=== PATIENT | male | born 1950 | race Caucasian/White ===

== ENCOUNTER → 2016-10-09 | Outpatient (CLI) | payer MEDICARE, OTHER ==
--- NOTE | 2016-10-10 12:19 | CONS ---
CONSULTATION Date of Consultation: DATE OF SERVICE: 10/09/2016 66-year-old gentleman who has [facility] for obstructive sleep apnea-hypopnea syndrome. HISTORY OF PRESENT ILLNESS/SLEEP WAKE EVALUATION: Patient had been diagnosed with obstructive sleep apnea about 10 years ago in [place]. He was recommended treatment with CPAP, but he was not able to use the treatment. At the present time his sleep schedule significantly varies from 8:00 p.m. to 2:00 a.m. falling asleep until 7:00 a.m. to 10:00 a.m. on getting up. He does have problem with falling asleep. Has TV set in bedroom. He snores, has episodes of stopped breathing during the sleep. Restless leg symptoms. Nocturia. He wakes up from sleep three times with nocturia. No history of hypnagogic hallucinations, sleep paralysis or cataplexy. He feels significant sleepiness during the day. He takes naps. [place] sleepiness scale is extremely high range at 23. PAST MEDICAL HISTORY: Positive for hypertension, diabetes mellitus, back problem, peripheral neuropathy, some blindness of left eye, COPD. PAST SURGICAL HISTORY: Status post cataract surgery of the left eye. MEDICATIONS: 1. Metformin. 2. Atorvastatin. 3. Losartan. 4. Montelukast. 5. Aspirin. 6. Januvia. 7. Tramadol. 8. Lyrica. 9. Albuterol. 10.Hydrocodone. 11.budesonide. SOCIAL HISTORY: Positive for smoking for about one and a half packs per day for more than 40 years. Alcohol consumption very seldom. REVIEW OF SYSTEMS: Multiple awakenings from sleep. Sleepiness during the day. No fevers No double vision. No recent chest pain. No shortness of breath. No abdominal pain. No bleeding episodes. No blood in urine. No seizure episodes. FAMILY HISTORY: Hypertension, angina, heart problems, hyperlipidemia, stroke, arthritis, asthma, bronchitis, lung problems, sleep apnea, snoring, headaches, cancer, diabetes. PHYSICAL EXAM: GENERAL: During physical exam, a 66-year-old gentleman without distress. VITAL SIGNS: BP 120/70, HR 72, RR 16, height 5 feet 11 inches, weight 259, BMI 36.1. Neck 16-3/4 inches in circumference. Temperature 98.2, O2 saturation in room air 96%. HEENT: Evaluation of oropharynx showed extremely low position. Nasal symptoms deviation. Blindness of the left eye. Right eye reactive to light and accommodation. NECK: Supple. No JVD. Thyroid is not palpable. LUNGS: clear to percussion and to auscultation. Good air exchange. No wheezing or rhonchi. HEART: S1, S2 regular. No murmurs, gallops or rubs. ABDOMEN: Soft and nontender. Bowel sounds are present. No organomegaly appreciated. EXTREMITIES: Tendency for swelling of the ankles. MAIL TRUCK DRIVER: Awake, alert and oriented x3. Cranial nerves II through VII intact. There is no fasciculation or atrophy noted. No focal deficits observed. IMPRESSION: 1. Snoring and multiple awakenings from sleep, extreme sleepiness during the day, [place] sleepiness scale increased to 23, witnessed episodes of stopped breathing during the sleep, history of obstructive sleep apnea in the past. Obstructive sleep apnea-hypopnea syndrome. 2. Obesity, BMI 36.1. 3. Hypertension. 4. Diabetes mellitus. 5. Nasal septal deviation. 6. Back problems. 7. Peripheral neuropathy. 8. Status post appendectomy. 9. Status post cataract surgery on the left side. 10.Blindness on the left eye. 11.Chronic obstructive pulmonary disease. 12.Smoker for more than 60 pack years. PLAN: 1. Polysomnography for evaluation of patient's breathing during sleep. 2. CPAP/BiPAP titration if sleep study confirms obstructive sleep apnea-hypopnea syndrome. 3. Preferable position during sleep on the side. 4. No driving if patient feels any sleepiness. Patient is aware of civil and criminal liability for unsafe driving. 5. I will see the patient for follow-up visit to explain results of the testing and following plan. 6. Smoking cessation program. Thank you very much for referring this patient for consultation. Sincerely, Ashish Aguilera MD, PhD, FAASM Diplomat of [place] [employer], Sleep Medicine Board by [place] [employer] [place] [employer] MMODL / IJN: [id number] /
== END | disposition home or self-care (01) ==
LOC: SLEEP 15:38
PROVIDERS: ATTEND Internal Medicine
DX: G47.33 Obstructive sleep apnea (adult) (pediatric) (principal); E66.9 Obesity, unspecified; I10 Essential (primary) hypertension; E11.9 Type 2 diabetes mellitus without complications; J34.2 Deviated nasal septum; G62.9 Polyneuropathy, unspecified; J44.9 Chronic obstructive pulmonary disease, unspecified; Z68.36 Body mass index [BMI] 36.0-36.9, adult; Z98.890 Other specified postprocedural states; Z79.4 Long term (current) use of insulin; Z79.899 Other long term (current) drug therapy; Z79.82 Long term (current) use of aspirin
CPT/HCPCS: 99211

== ENCOUNTER → 2017-02-12 | Outpatient (CLI) | payer MEDICARE, OTHER ==
--- NOTE | 2017-02-12 23:11 | MR ---
EXAMINATION TYPE: MR lumbar spine wo con DATE OF EXAM: 02/12/2017 COMPARISON: Primary MRI lumbar spine November 07, 2015. HISTORY: LBP, BLE radic x several years TECHNIQUE: Multiplanar, multisequence imaging of the lumbar spine is performed without IV contrast. FINDINGS: Sagittal images of the lumbar spine show vertebral body heights to remain satisfactory. The re are multilevel persistent Schmorl nodes redemonstrated. There is persistent stable grade 1 retroli sthesis of L5 on S1. Multilevel disc desiccation is redemonstrated. There is vacuum disc phenomenon L 4-L5 and L5-S1 levels again seen. There is mild disc space narrowing L4-L5 level fell present on cur rent study. No new large posterior disc herniations are seen on sagittal images. The conus medullaris remains normal in position and signal ending at T12-L1 disc space. The bone marrow signal intensity is overall heterogeneous. Mild multilevel anterior spurring is redemonstrated. Axial images at T12-L1 level demonstrate mild facet degenerative changes bilaterally. There is new mi ld broad disc bulge mildly effacing anterior thecal sac on axial image 29, bilateral neural foramina remain patent. Axial images at L1-L2 level redemonstrate mild facet degenerative changes bilaterally but the spinal canal is preserved and bilateral neural foramina remain patent. Axial images at L2-L3 level are felt to remain within normal limits. Axial images at L3-L4 level demonstrates mild broad disc bulge and mild facet degenerative changes bi laterally with right foraminal disc protrusion component seen best axial image 13. There is minimal e ffacement of anterior thecal sac. Left-sided neural foramina is patent. Right side redemonstrates mil [id number] anterior inferior neural foraminal narrowing felt slightly more prominent versus prior on sagittal images. Axial images at L4-L5 level show moderate to advanced facet degenerative changes and ligamentum flavu m hypertrophy and spondylolisthesis causing pseudodisc herniation with broad disc bulge causing most prominent spinal canal stenosis on axial image 9 similar to prior study. There is persistent advanced left-sided neural foraminal narrowing and moderate to advanced right-sided neural foraminal narrowin g. There is encroachment on the left L4 nerve redemonstrated anterior inferior margin of right L4 ner ve on sagittal image 12 redemonstrated. Axial images at the L5-S1 level redemonstrated [id number] facet degenerative changes bilaterall y. There is mild broad disc bulge redemonstrated. Spinal canal is minimally effaced along anterior as pect. There is moderate right-sided neural foraminal narrowing redemonstrated. Left-sided neural fora men is patent. Encroachment on right L5 nerve is redemonstrated due to spur disc complex on sagittal image 11. There is persistent ectasia of the infrarenal abdominal aorta measuring up to 3.1 cm in diameter on c urrent study axial image 16. There appears to be more prominent moderate right-sided hydronephrosis o n current study. IMPRESSION: Multilevel degenerative changes in lumbar spine as detailed above, most prominent finding s are L4-L5 level where spondylolisthesis degenerative changes contribute to spinal canal stenosis an d bilateral neural foraminal narrowing with nerve encroachment. No significant change from prior stud y at this level. Attention to right kidney, moderate right-sided hydronephrosis is felt present on cu rrent study. Follow-up advised.
== END | disposition home or self-care (01) ==
LOC: RADMRIMAIN 16:49
PROVIDERS: ATTEND Psychiatry & Neurology Neurology
DX: M48.061 Spinal stenosis, lumbar region without neurogenic claudication (principal); M43.16 Spondylolisthesis, lumbar region; M47.816 Spondylosis without myelopathy or radiculopathy, lumbar region; M99.73 Connective tissue and disc stenosis of intervertebral foramina of lumbar region
CPT/HCPCS: 72148

== ENCOUNTER → 2017-06-17 | Outpatient (CLI) | payer MEDICARE, OTHER ==
[2017-06-16 14:57] VITALS: BMI 33.2
[2017-06-17 12:08] VITALS: BP 155/79; PULSE 60; RESP 18
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
== END | disposition home or self-care (01) ==
LOC: PNWHC3 11:43
PROVIDERS: ATTEND Specialist
DX: G89.29 Other chronic pain (principal); M54.5 Low back pain; M79.641 Pain in right hand; M51.36 Other intervertebral disc degeneration, lumbar region; M47.816 Spondylosis without myelopathy or radiculopathy, lumbar region; E11.9 Type 2 diabetes mellitus without complications; I10 Essential (primary) hypertension; M19.90 Unspecified osteoarthritis, unspecified site; G47.30 Sleep apnea, unspecified; M10.9 Gout, unspecified; Z86.59 Personal history of other mental and behavioral disorders; Z79.82 Long term (current) use of aspirin; Z79.891 Long term (current) use of opiate analgesic; Z79.1 Long term (current) use of non-steroidal anti-inflammatories (NSAID); Z79.84 Long term (current) use of oral hypoglycemic drugs; Z99.89 Dependence on other enabling machines and devices; Z87.828 Personal history of other (healed) physical injury and trauma; Z79.899 Other long term (current) drug therapy
CPT/HCPCS: 99211

== ENCOUNTER → 2017-06-19 | Outpatient (CLI) | payer MEDICARE, OTHER ==
--- NOTE | 2017-06-19 13:14 | XR ---
EXAMINATION TYPE: XR hand complete RT DATE OF EXAM: 06/19/2017 COMPARISON: NONE HISTORY: A TECHNIQUE: Three views are submitted. FINDINGS: The osseous structures are intact. Hypertrophic spur and narrowing of the third MCP joint. Narrowing the first MCP joint noted. IMPRESSION: 1. No definite acute fracture or dislocation if symptoms persist, follow-up study in 7 to 10 days wo uld be suggested. 2. Arthropathy and hypertrophic changes involving the third MCP joint.
== END | disposition home or self-care (01) ==
LOC: RADXRYALE 12:53
PROVIDERS: ATTEND Internal Medicine
DX: M19.041 Primary osteoarthritis, right hand (principal); M25.841 Other specified joint disorders, right hand

== ENCOUNTER 2017-06-22 06:48 | Day surgery (SDC) | payer MEDICARE, OTHER ==
[2017-06-19 11:38] VITALS: BMI 33.2
[~2017-06-22 06:48] MED LIST: LACTATED RINGERS 1,000 ML IV SCH
[2017-06-22 08:13] VITALS: TEMP 97.8
[2017-06-22 08:13] LABS: Glucose,Whole Blood 101 mg/dL (75-99)
[2017-06-22] MEDS ORDERED: LIDOCAINE 1% 20 ML VIAL (10MG/ML) FOR IV START INTRADERMA ONE (08:13)
--- NOTE | 2017-06-22 08:42 | P.PCN ---
Date of Procedure: 06/22/17 Anesthesia: MAC (Local with IV conscious sedation with 2 mg of Versed) Surgeon: Valeria Granados Description of Procedure: Procedure= diagnostic medial branch block bilateral at L3 4 , L4 5, and L5-S1 levels under fluoroscopy guidance Preop diagnosis= 1- lumbar facet arthropathy 2-lumbar degenerative disc disease , Postop diagnoses=1- lumbar facet arthropathy 2-lumbar degenerative disc disease , Anesthesia= IV sedation with Versed and fentanyl and local infiltration with lidocaine 1% 6 mL . Condition= stable Complication= none Fluoroscopy time= 12 seconds. Occasion for the procedure= chronic low back pain secondary to lumbar facet arthropathy. Description of the procedure= procedure risk and benefit including but not limited to infection, bleeding, ALLERGIC reaction to the medication, not complete pain relief, nerve damage, and patient agreed with proceeding, patient taken to the operating room, placed in prone position, or standard monitors applied to the patient, then after induction of anesthesia, lidocaine 1% used for skin and subcu l infiltration, Firsts I did the right side diagnostic medial branch block at L3- 4, L4- 5, L5- S1 using 322-gauge Quincke tab needles, each needle placed at the junction of the base of the transverse process and the superior articulating process of L3- 4, L4 5, and L5-S1 levels on the right side (which is correspondence to the eye of the Franko dog at each level ) , the needles placement confirmed under fluoroscopy by checking the AP, oblique, and lateral views, and after appropriate needle placement confirmed 0.5 Marcaine mixed with 40 mg of Kenalog , half cc of injected at each level after negative aspiration, Then the diagnostic medial branch block for the left side done after the injected the lidocaine 1% for skin and subcu infiltration then a 22-gauge Quincke Needle was 3 needle was used each one of them placed at the junction of the base of the transverse process and the superior articulating process of L3 4, L4 5, L5-S1 levels (which is correspondence to the eye of the Franko dog at each level), then needle placement confirmed with AP, oblique, and lateral view then after appropriate needle placement confirmed at each level 0.5% Marcaine mixed with 40 mg of Kenalog half cc injected at each level after negative aspiration patient tolerated the procedure well without any complications and patient will follow up with the pain clinic in a few weeks,
--- NOTE | 2017-06-22 08:51 | FL ---
EXAMINATION TYPE: FL guided pain mgmt statistic DATE OF EXAM: 06/22/2017 HISTORY: Flouroscopy time 9 seconds of fluoroscopy provided. IMPRESSION: 1. Fluoroscopy time.
[2017-06-22] MEDS ORDERED: IV FLUID CONTINUATION 650 ML IV ONE (08:53)
[2017-06-22 08:56] VITALS: RESP 18
[2017-06-22 09:00] LABS: Glucose,Whole Blood 93 mg/dL (75-99)
[2017-06-22 09:28] VITALS: BP 137/91; PULSE 70
--- NOTE | 2017-06-25 12:28 | CDI ---
Date: 06/25/17 CDS/Merchandising Director Name: Barbara Renae Phone: If any questions, call Avril Woodard Radioisotope Technician at [phone] Patient Name: Óscar Fair Admit Date: 06/22/17 Discharge Date: 06/22/17 ATTENTION: The [facility] Coding Staff appreciate your assistance in clarifying documentation. Please respond to the clarification below the line at the bottom and electronically sign. The [facility] Coding staff will review the response and follow-up if needed. Please note: Queries are made part of the Legal Health Record. If you have any questions, please contact the Radioisotope Technician. Dear Dr. Granados, Please provide clarification as to what type of sedation was used to perform this procedure. The Operative report documents both MAC and Conscious Sedation. On the Pain Procedure Record under Anesthesia Plan, nothing is checked. Thank you for your kind consideration MTDD
== END 2017-06-22 09:32 | disposition home or self-care (01) ==
LOC: ORPAIN 06:48
PROVIDERS: ATTEND Anesthesiology
DX: G89.29 Other chronic pain (principal); M47.816 Spondylosis without myelopathy or radiculopathy, lumbar region; M51.36 Other intervertebral disc degeneration, lumbar region; I10 Essential (primary) hypertension; E11.9 Type 2 diabetes mellitus without complications; M19.90 Unspecified osteoarthritis, unspecified site; G47.30 Sleep apnea, unspecified; Z99.89 Dependence on other enabling machines and devices; F17.210 Nicotine dependence, cigarettes, uncomplicated; Z79.84 Long term (current) use of oral hypoglycemic drugs; Z79.82 Long term (current) use of aspirin; Z79.899 Other long term (current) drug therapy
CPT/HCPCS: 64493; 64494; 64495; J2250; J3301; 99152

== ENCOUNTER 2017-07-14 06:56 | Day surgery (SDC) | payer MEDICARE, OTHER ==
[2017-07-14] MEDS ORDERED: LACTATED RINGERS 1,000 ML IV SCH (07:45)
[2017-07-14 07:58] VITALS: TEMP 97.8
[2017-07-14] MEDS ORDERED: LIDOCAINE 1% 20 ML VIAL (10MG/ML) FOR IV START INTRADERMA ONE (08:06)
[2017-07-14 08:11] LABS: Glucose,Whole Blood 84 mg/dL (75-99)
--- NOTE | 2017-07-14 08:31 | P.PCN ---
Date of Procedure: 07/14/17 Surgeon: Thor Swann Pathology: none sent Condition: stable Disposition: PACU Description of Procedure: PREOPERATIVE DIAGNOSIS: Lumbar spondylosis without myelopathy and facet arthropathy. POSTOPERATIVE DIAGNOSIS: Lumbar spondylosis without myelopathy and facet arthropathy. PROCEDURE DESCRIPTION: Patient presents for L3-L4, L4-L5 and L5-S1 diagnostic medial branch blocks under fluoroscopic guidance. The procedure is performed using fluoroscopic guidance during needle placement to assure proper position and maximize safety. ANESTHESIA: Local with 1% lidocaine; conscious sedation EBL: Minimal PROCEDURE INDICATION: Patient with lumbar facet arthropathy signs and symptoms, here for diagnostic medial branch block. Pt does not take any blood thinning medications. Good relief from MBB #1 for 10 days > 60% relief and improvement in ADLs. PROCEDURE DESCRIPTION: The patient was seen and identified in the preoperative area. Risks, benefits, complications, and alternatives were discussed with the patient (including but not limited to incomplete pain relief, bleeding, infection, nerve damage, and allergies to medications), the patient agreed to proceed with the procedure and signed the consent after all questions were answered. Patient was taken to the OR and time out was completed to verify proper patient, position, laterality of pain, and allergies. Pt was placed in the prone position and a pillow was placed under the abdomen to reduce lumbar lordosis. The lumbosacral area was prepped and draped in the usual sterile fashion. Using oblique fluoroscopy, the eye of the "Franko dog" of right L4 vertebral body, which corresponds to the path of the medial branch originating from the level above, which is L3 in this case, was identified. Subsequently, a 22-gauge 3.5-inch spinal needle was inserted under fluoroscopic guidance toward the eye of the "Franko dog" of the right L4 vertebral body, corresponding to the junction of the superior articular process and the transverse process of the pedicle of the same level. After needle tip confirmation on lateral view and after negative aspiration for CSF and blood and without paresthesias, 1 mL of a 6 ml solution of 0.5% preservative-free bupivacaine and 40 mg Kenalog was injected. Subsequently the needle was withdrawn intact and the same procedure was repeated for the right L4, right L5, left L3, left L4, and left L5 medial branches which together with right L3 medial branch correspond to the sensory innervation of the bilateral L3-L4, L4-L5, and L5-S1 facet joints. Needle was withdrawn intact after each injection. At the end of the procedure, the skin was cleansed and bandages were applied. COMPLICATIONS: None. DISPOSITION/PLAN: The patient taken to the recovery area after the procedure in a stable condition for observation. Patient was reexamined prior to discharge and there were no issues. Patient was discharged home, accompanied by an adult, after meeting discharged criteria. Discharge instructions were give to the patient by the staff. Patient was specifically instructed not to drive today and to rest for the rest of the day. Patient will follow up in clinic for re-eval in 4-6 weeks.
--- NOTE | 2017-07-14 08:41 | FL ---
EXAMINATION TYPE: FL guided pain mgmt statistic DATE OF EXAM: 07/14/2017 HISTORY: Flouroscopy time 9 seconds of fluoroscopy provided. IMPRESSION: 1. Fluoroscopy time.
[2017-07-14 08:44] VITALS: RESP 18
[2017-07-14] MEDS ORDERED: IV FLUID CONTINUATION 1,000 ML IV ONE (09:12)
[2017-07-14 09:13] VITALS: BP 145/78; PULSE 67
== END 2017-07-14 09:15 | disposition home or self-care (01) ==
LOC: ORPAIN 06:56
PROVIDERS: ATTEND Anesthesiology
DX: G89.29 Other chronic pain (principal); M47.816 Spondylosis without myelopathy or radiculopathy, lumbar region; M51.36 Other intervertebral disc degeneration, lumbar region; E11.9 Type 2 diabetes mellitus without complications; I10 Essential (primary) hypertension; M19.90 Unspecified osteoarthritis, unspecified site; G47.30 Sleep apnea, unspecified; Z99.89 Dependence on other enabling machines and devices; F17.210 Nicotine dependence, cigarettes, uncomplicated; Z79.84 Long term (current) use of oral hypoglycemic drugs; Z79.82 Long term (current) use of aspirin; Z79.899 Other long term (current) drug therapy
CPT/HCPCS: 64493; 64494; 64495; J2250; J3301

== ENCOUNTER → 2017-07-28 | Outpatient (CLI) | payer MEDICARE, OTHER ==
[2017-07-28 14:51] VITALS: BP 195/103; PULSE 73; RESP 22
--- NOTE | 2017-07-28 14:58 | P.PN ---
Progress Note - Text Progress Note Date: 07/28/17 Patient returns for followup for chronic back pain with radiation to hips. Patient recently underwent bilateral LMBB x 2, which provided some relief for one week's interval apiece. Patient continues on Morton and Lyrica medications for pain from neurologist with good relief. Patient denies adverse drug effects from medications. Today, pt denies new-onset weakness, bowel/bladder incontinence, or any other signs or symptoms of cauda equina syndrome. There are no signs of acute intoxication, and no indications of medication diversion or overuse. In addition to above, 13-point review of systems is also negative for chest pain , shortness of breath, changes in vision, changes in hearing, new onset weakness , abdominal pain, diarrhea, extreme fatigue, malaise, fever, skin changes, homicidal or suicidal ideation, or bowel or bladder incontinence. Vital Signs: Reviewed in EMR Gen: WDWN, AAOx3, NAD HEENT: NCAT, EOMI, hearing grossly normal Pulm: resp unlabored Abd: soft, NT, ND Neck: supple, trachea midline ROM in flexion lumbar spine: reduced ROM in extension lumbar spine: reduced Lumbar paravertebral tenderness: + Facet loading: + bilateral SI joint tenderness: + R > L Crow's test: + R > L Straight leg raise: neg Imaging: Reviewed in EMR Assessment: 1. lumbar spondylosis 2. chronic pain syndrome 3. lumbar DDD Plan: 1. Explanation: Opioid and psychological risk scores were reviewed. Diagnoses , prognoses, and multiple treatment options including but not limited to physical therapy, interventional therapies, adjuvant medical therapies, narcotic medication therapies, and surgery were discussed with the patient and all questions were answered to the patient's satisfaction. 2. Opioid agreement: no opioids prescribed today 3. Counseling: The patient was counseled extensively on BODY MASS INDEX, EXERCISE. Specifically, the patient was instructed regarding the importance of weight control, and exercise in the context of both chronic pain and overall health. 4. Procedures: R lumbar RFA L3-S1, then left lumbar RFA 5. Consultations: None 6. Investigations: UDS not done today, MAPS queried and appropriate 7. Medications: none 8. Morphine equivalents per day prescribed: zero 9. Disposition: f/u for procedure as scheduled PQRS measures: 1-Patient's medications are documented in the chart. 2-Tobacco use is negative 3-Patient has not had a pneumococcal vaccine. 4-Advanced care planning discussed, patient unable to give. 5-Opioid contract NOT signed with the patient. 6-Pain positive, follow-up visit or procedure scheduled 7-Patient's blood pressure measured and documented, and patient will follow up with the primary care due to hypertension. 8-Patient's weight was measured, and body mass index ABOVE the normal limits, and counseling was done. Patient instructed to follow up with PCP. 9-Patient WAS NOT identified as an unhealthy alcohol user.
== END | disposition home or self-care (01) ==
LOC: PNWHC3 14:40
PROVIDERS: ATTEND Anesthesiology
DX: G89.4 Chronic pain syndrome (principal); M51.36 Other intervertebral disc degeneration, lumbar region; M47.816 Spondylosis without myelopathy or radiculopathy, lumbar region; Z79.891 Long term (current) use of opiate analgesic; Z79.899 Other long term (current) drug therapy
CPT/HCPCS: 99211

== ENCOUNTER 2017-08-20 09:05 | Day surgery (SDC) | payer MEDICARE, OTHER ==
[2017-08-14 16:01] VITALS: BMI 31.4
[2017-08-20] MEDS ORDERED: LIDOCAINE 1% 20 ML VIAL (10MG/ML) FOR IV START INTRADERMA ONE (09:17)
[2017-08-20 09:37] VITALS: TEMP 97.8
[2017-08-20 09:41] LABS: Glucose,Whole Blood 103 mg/dL (75-99)
--- NOTE | 2017-08-20 10:49 | P.PCN ---
Date of Procedure: 08/20/17 Procedure(s) Performed: PREOPERATIVE DIAGNOSIS: 1-Lumbar Spondylosis with Facet Arthropathy without myelopathy. 2- Lumber degenerative disc disease POSTOPERATIVE DIAGNOSIS: 1- Lumbar Spondylosis with Facet Arthropathy without myelopathy. 2- Lumber degenerative disc disease PROCEDURES : Left Radiofrequency thermocoagulation, L3-L4, L4-L5, and L5-S1 medial branch, with fluoroscopic guidance ANESTHESIA: Moderate sedation with intravenous versed 2 mg and fentaneyl 100 mcg and local infiltration with lidocaine 1% 6 ml EBL: Minimal PROCEDURE INDICATION: The patient with low back pain secondary to lumbar facet arthropathy who had more than 50% relief of her pain with previous diagnostic lumbar medial branch block with bupivacaine. PROCEDURE DESCRIPTION / TECHNIQUE: The patient was seen and identified in the preoperative area. Risks, benefits, complications, including but not limited to risk of infection ,bleeding , allergic reactions to the medications and no complete pain releife , and alternatives were discussed with the patient, the patient agreed to proceed with the procedure and signed the consent. IV was started. Vital signs remained stable throughout the procedure. Patient was taken to the OR and time out was completed. The patient was placed in the prone position on the procedure table. The lumber area was prepped and draped in the usual sterile fashion. . Vital signs were closely monitored during the procedure .IV sedation was used during the procedure to decrease patients anxiety. Using AP and then oblique fluoroscopy, the ``eye of the Franko dog corresponding to the connection between the superior and transverse articular processes of Left L3, L4, and L5 were identified, marked, and localized with 1 % lidocaine. Subsequently, a 18 -os radiofrequency cannula with a 10- mm active tip was advanced guided by fluoroscopy to each of the ``eyes of the Franko dog at left L3, L4, and L5. Each site then underwent sensory testing at 50 Hz and 0 to 1 volt and motor testing at 2.5 Hz and 0 to 3 volt with local stimulation, but no radicular symptoms down the legs. Thereafter the left L3-4, L4-5, and L5-S1 sites underwent radiofrequency thermocoagulation at 80 degrees celsius for 90 seconds after injecting 0.5 ml of PF lidocaine 1%. then After the thermocoagulation done , 1 ml of the block solution containing Kenalog 40 mg and 3 ml of marcain 0.5% was injected at the left L3-4 , L4-5 , and L5-S1, levels after negative aspiration of CSF and blood and with no paresthesias. Cannulas were retracted while injecting lidocaine 1% until the needle is out. At the end of the procedure, the skin was cleansed and bandages were applied. COMPLICATIONS: No acute complications. DISPOSITION / PLANS: The patient was placed in a supine position and transferred to the recovery area in a stable condition for observation and was discharged from the recovery room after meeting discharge criteria. Home discharge instructions given to the patient by the staff. The patient was reexamined prior to discharge. The patient will schedule a follow up in the clinic in 2-4 weeks.
--- NOTE | 2017-08-20 11:01 | FL ---
Fluoroscopy HISTORY: Pain 27 seconds fluoroscopy time supplied to the referring clinician. 3 intraoperative C-arm images docum ent the procedure. See dictated report from anesthesia.
[2017-08-20] MEDS ORDERED: IV FLUID CONTINUATION 1,000 ML IV ONE ×2 (11:03)
[2017-08-20 11:28] VITALS: BP 144/83; PULSE 53; RESP 18
== END 2017-08-20 11:37 | disposition home or self-care (01) ==
LOC: ORPAIN 09:05
PROVIDERS: ATTEND Specialist
DX: M47.816 Spondylosis without myelopathy or radiculopathy, lumbar region (principal); M51.36 Other intervertebral disc degeneration, lumbar region; E11.9 Type 2 diabetes mellitus without complications
CPT/HCPCS: 64635; 64636; J2250; J3301; J3010; 99152

== ENCOUNTER 2017-09-07 06:05 | Day surgery (SDC) | payer MEDICARE ==
[2017-08-31 13:42] VITALS: BMI 31.1
[2017-09-07 06:46] VITALS: TEMP 97.9
[2017-09-07] MEDS: LACTATED RINGERS 1,000 ML IV SCH ×2 (06:52→07:02)
[2017-09-07 06:56] LABS: Glucose,Whole Blood 103 mg/dL (75-99)
--- NOTE | 2017-09-07 07:29 | P.PCN ---
Date of Procedure: 09/07/17 Surgeon: Valeria Granados Pathology: none sent Condition: stable Disposition: PACU Description of Procedure: PREOPERATIVE DIAGNOSIS: Lumbar spondylosis without myelopathy, morbid obesity POSTOPERATIVE DIAGNOSIS: Lumbar spondylosis without myelopathy,morbid obesity PROCEDURES : Right Radiofrequency thermocoagulation,L3-L4, L4-L5, and L5-S1 medial branch, with fluoroscopic guidance ANESTHESIA: IV moderate conscious sedation with versed and fentanyl and local infiltration with lidocaine 1% 5 ml EBL: Minimal PROCEDURE INDICATION: The patient with low back pain secondary to lumbar facet arthropathy who had more than 50% relief of her pain with previous diagnostic lumbar medial branch block with bupivacaine. PROCEDURE DESCRIPTION / TECHNIQUE: The patient was seen and identified in the preoperative area. Risks, benefits, complications, including but not limited to risk of infection ,bleeding , allergic reactions to the medications and no complete pain relief , and alternatives were discussed with the patient, the patient agreed to proceed with the procedure and signed the consent. IV was started. Vital signs remained stable throughout the procedure. Patient was taken to the OR and time out was completed. The patient was placed in the prone position on the procedure table. The lumber area was prepped and draped in the usual sterile fashion. . Vital signs were closely monitored during the procedure .IV sedation was used during the procedure to decrease patients anxiety. The target points were identified as follows: For the L5-S1 level which corresponds to the dorsal ramus of L5 the target point was at the superior medial aspect of the sacral ala on the Rt side of the spine on the AP view of fluoroscopy and for the L2, L3, and L4 medial branches the target points were at the connection between the transverse process and the superior articular process of L3, L4, and L5 vertebra respectively on the Rt oblique view of fluoroscopy. skin was marked, and localized with 1% lidocaineat these points. Subsequently, an 18 -qa radiofrequency needles with a 10-mm curved active tips were advanced guided by fluoroscopy to each of the target points mentioned above in a superior medial direction to get the active tips as parallel as possible to the medial branches tracks. AP, oblique, and lateral views of fluoroscopy were used to verify needle tips position. Each level then underwent motor testing at 2.5 Hz and 0 to 3 volt with local stimulation, but no radicular symptoms down the legs. Thereafter radiofrequency thermocoagulation at 80 degrees celsius for 90 seconds after injecting 0.5 ml of Lidocaine 1%. After the procedure is completed 1 mls of PF Ropivacaine 0.5%( 3 mls) with 40 mg of Depomedrol was injected. At the end of the procedure, the skin was cleansed and bandages were applied. COMPLICATIONS: No acute complications. DISPOSITION / PLANS: The patient was placed in a supine position and transferred to the recovery area in a stable condition for observation and was discharged from the recovery room after meeting discharge criteria. Home discharge instructions given to the patient by the staff. The patient was reexamined prior to discharge. The patient will schedule a follow up in the clinic in 2-4 weeks.
[2017-09-07 07:37] VITALS: RESP 16
[2017-09-07] MEDS ORDERED: IV FLUID CONTINUATION 1,000 ML IV ONE (07:42)
[2017-09-07 07:49] VITALS: BP 144/95; PULSE 70
--- NOTE | 2017-09-07 08:35 | FL ---
EXAMINATION TYPE: FL guided pain mgmt statistic DATE OF EXAM: 09/07/2017 HISTORY: Flouroscopy time 27 seconds of fluoroscopy provided. IMPRESSION: 1. Fluoroscopy time.
== END 2017-09-07 08:04 | disposition home or self-care (01) ==
LOC: ORPAIN 06:05
PROVIDERS: ATTEND Anesthesiology
DX: M47.816 Spondylosis without myelopathy or radiculopathy, lumbar region (principal); E66.01 Morbid (severe) obesity due to excess calories; Z68.31 Body mass index [BMI] 31.0-31.9, adult; E11.9 Type 2 diabetes mellitus without complications
CPT/HCPCS: 64635; 64636 ×2; J2250; J1030; J2001; J3010; 99152

== ENCOUNTER → 2017-10-06 | Outpatient (CLI) | payer MEDICARE ==
[2017-10-06 14:34] VITALS: BP 150/87; PULSE 77; RESP 18
--- NOTE | 2017-10-06 14:53 | P.PAINPG ---
Subjective Progress Note Date: 10/06/17 Principal diagnosis: Lumbar spinal stenosis This very pleasant 67-year-old gentleman with a history of low back pain. He recently underwent lumbar radio frequency ablation. He said this was very helpful in reducing his symptoms. He now complains of pain which raises both buttocks and down his legs. He has significant cramping at night. He believes that the symptoms were always present but he ignored them because his back pain was so bad. He denies any bowel or bladder dysfunction. Objective - Vital Signs Vital signs: Vital Signs Temp Pulse 77 10/06/17 14:27 Resp 18 10/06/17 14:27 BP 150/87 10/06/17 14:27 Pulse Ox 96 10/06/17 14:27 Intake & Output 10/05/17 10/06/17 10/06/17 18:59 06:59 18:59 Weight 106.594 kg - Exam General: The patient is alert and oriented. Patient is not sedated Patient answers all question appropriately. Cardiac: Heart is regular in rate and rhythm Respiratory: Clear to auscultation. No audible wheezes. Abdomen: Soft nontender nondistended. Lower extremities: Strength is normal bilaterally. Sensation is normal bilaterally. Reflexes are preserved and symmetric bilaterally. Straight leg raise is negative bilaterally. Assessment and Plan (1) Degenerative lumbar spinal stenosis Narrative/Plan: Plan of Care 1. Medications: Patient receive medications from his primary care physician 2. Interventions: We will schedule patient for an L5-S1 lumbar epidural steroid injection. I've counseled him of the risks and benefits of this procedure. Specifically, I discussed with him the risks of hyperglycemia after this injection. I've advised him to watch his sugars closely and to contact his primary care physician for management strategies. 3. Referrals: None 4. Testing: None 5. Follow-up: Lumbar epidural steroid injection Current Visit: Yes Status: Acute Code(s): M48.061 - SPINAL STENOSIS, LUMBAR REGION WITHOUT NEUROGENIC ADEN SNOMED Code(s): 042845784 (2) Degenerative lumbar disc Current Visit: No Status: Chronic Code(s): M51.36 - OTHER INTERVERTEBRAL DISC DEGENERATION, LUMBAR REGION SNOMED Code(s): 15112767 (3) Lumbar spondylosis Current Visit: No Status: Chronic Code(s): M47.816 - SPONDYLOSIS W/O MYELOPATHY OR RADICULOPATHY, LUMBAR REGION SNOMED Code(s): 684113381 PQRS Measure Charge Sheet Measure #130: Documentation of Current Meds in Medical Chart: Patient not eligible for medications to be documented Measure #226: Tobacco Use: Screen & Cessation Intervention: Pt not a tobacco user Measure #111: Pneumonia Vaccination: Pneumococcal vaccine NOT administered or previously given Measure #47: Advance Care Plan: Advance care planning discussed & documented, pt chose/unable to give Measure #412: Opioid Treatment Agreement: No documentation of signed opioid treatment agreement Measure #408: Opioid Therapy Follow-up Evaluation: Patient had NO f/u eval minimum every 3 months during opioid therapy Measure #317: Preventitive Care & Scrn High Bld Press & F/U: Normal blood pressure, f/u not required Measure #128: Body Mass Index (BMI) Screening & Follow-up: BMI documented ABOVE normal parameters - f/u documented Measure #131: Pain Assessment & Follow-up: Pain positive & plan documented Measure #431: Unhealthy Alcohol Use Preventative Care & Scrn: Patient not identified as an unhealthy alcohol user PQRS Narrative: Smoking Status Current every day smoker Blood Pressure 150/87 Pain Intensity [Lower Buttock] 7 Scale Used Numeric (1 - 10) Hx Alcohol Use (MH) No Home Medications: Ambulatory Orders Aspirin [Adult Low Dose Aspirin EC] 81 mg PO DAILY 06/16/17 Atorvastatin [Lipitor] 20 mg PO DAILY 06/16/17 HYDROcodone/APAP 10-325MG [[place] 10-325] 1 tab PO TID PRN 06/16/17 Ibuprofen [Motrin] 800 mg PO BID PRN 06/16/17 Isosorbide Mononitrate [Isosorbide Mononitrate ER] 30 mg PO DAILY 06/16/17 Losartan Potassium 50 mg PO DAILY 06/16/17 Pregabalin [Lyrica] 100 mg PO BID 06/16/17 sitaGLIPtin PHOS/metFORMIN HCL [Janumet 50-1,000 mg Tablet] 1 each PO BID traMADol HCL [Ultram] 50 mg PO BID PRN 06/16/17 Controlled Substance Measures - Controlled Substance Measures Is patient prescribed a controlled substance at discharge?: No
== END | disposition home or self-care (01) ==
LOC: PNWHC3 14:05
PROVIDERS: ATTEND Pain Medicine Pain Medicine
DX: M48.061 Spinal stenosis, lumbar region without neurogenic claudication (principal); M51.36 Other intervertebral disc degeneration, lumbar region; M47.816 Spondylosis without myelopathy or radiculopathy, lumbar region; F17.200 Nicotine dependence, unspecified, uncomplicated; Z79.891 Long term (current) use of opiate analgesic; Z79.1 Long term (current) use of non-steroidal anti-inflammatories (NSAID)
CPT/HCPCS: 99211

== ENCOUNTER 2017-10-20 09:42 | Day surgery (SDC) | payer MEDICARE ==
[2017-10-15 11:53] VITALS: BMI 30.9
[2017-10-20 10:54] VITALS: RESP 16; TEMP 97.3
[2017-10-20] MEDS ORDERED: LIDOCAINE 1% 20 ML VIAL (10MG/ML) FOR IV START INTRADERMA ONE (10:55)
[2017-10-20 11:06] LABS: Glucose,Whole Blood 86 mg/dL (75-99)
--- NOTE | 2017-10-20 11:38 | P.PCN ---
Date of Procedure: 10/20/17 Surgeon: Valeria Granados Pathology: none sent Condition: stable Disposition: PACU Description of Procedure: PREOPERATIVE DIAGNOSIS: 1-Lumbar radiculopathy 2- Lumber Degenerative Disc Diseases. POSTOPERATIVE DIAGNOSIS: 1-Lumbar radiculopathy. 2-Lumber Degenerative Disc Diseases PROCEDURE 1. Lumbar epidural steroid injection under fluoroscopic guidance at the L3-4 level. 2. Lumbar epidurogram. ANESTHESIA: Local with 1% lidocaine; IV sedation with Versed ,and fentanyl EBL: Minimal PROCEDURE INDICATION: The patient with low back pain and radiculitis symptoms unresponsive to conservative treatment. Fluoroscopy was used to optimize visualization of the needle placement and to maximize safety. PROCEDURE DESCRIPTION / TECHNIQUE: The patient was seen and identified in the preoperative area. Risks, benefits , complications including but not limited to infections ,bleeding ,allergic reaction to the medications ,nerve damage and not complete pain relief , and alternatives were discussed with the patient. The patient agreed to proceed with the procedure and signed the consent. IV was started, and vital signs were stable. Patient was taken to the OR and time out was completed. The patient was placed in the prone position on procedure table and a pillow was placed under the abdomen to reduce lumbar lordosis. The lumbosacral area was prepped and draped in the usual sterile fashion with ChloraPrep.Patient was closely monitored during the procedure. Conscious sedation was used during the procedure to decrease patients anxiety. Vital signs were monitered during the entire procedure. Using anterior-posterior fluoroscopy, the L3-4 interlaminar space was identified and the skin over this site was marked and then infiltrated with 1% lidocaine subcutaneously. Subsequently, a 20-gauge Tuohy epidural needle was inserted and advanced toward the epidural space using the Loss of resistance to air technique and guided by AP and lateral fluoroscopy in the left paramedian approach. The correct needle position in the epidural space was verified with the injection of 1 mL of the water soluble contrast dye Omnipaque 180 contrast and observing an excellent epidurogram with the epidural spread of the dye, after negative aspiration for blood and CSF and in the absence of paresthesias. Again after negative aspiration, a 8 ml mixture containing 40 mg of Kenalog and 5 ml of preservative free Normal Saline, and 2 ml of preservative free ropivacaine 0.5% solution was injected and a washout of epidurogram was seen. Needle was withdrawn intact, skin was cleansed, and bandages were applied. patient tolerated procedure well and was transferred to PACU in stable condition. COMPLICATIONS: None
[2017-10-20] MEDS ORDERED: IV FLUID CONTINUATION 1,000 ML IV ONE (11:43)
--- NOTE | 2017-10-20 11:50 | FL ---
Fluoroscopy HISTORY: Pain 12 seconds fluoroscopy time supplied to the referring clinician. 2 intraoperative C-arm images docum ent the procedure. See dictated report from anesthesia.
[2017-10-20 11:59] VITALS: BP 106/70; PULSE 68
== END 2017-10-20 12:16 | disposition home or self-care (01) ==
LOC: ORPAIN 09:42
PROVIDERS: ATTEND Anesthesiology
DX: M51.16 Intervertebral disc disorders with radiculopathy, lumbar region (principal); I10 Essential (primary) hypertension; E11.9 Type 2 diabetes mellitus without complications
CPT/HCPCS: 62323; J2250; J3301; J3010; Q9966; 99152

== ENCOUNTER 2017-11-04 06:28 | Day surgery (SDC) | payer MEDICARE ==
[2017-10-30 15:24] VITALS: BMI 30.9
[2017-11-04] MEDS ORDERED: LACTATED RINGERS 1,000 ML IV SCH (06:37)
[2017-11-04] MEDS ORDERED: LIDOCAINE 1% 20 ML VIAL (10MG/ML) FOR IV START INTRADERMA ONE (07:17)
[2017-11-04 07:21] LABS: Glucose,Whole Blood 104 mg/dL (75-99)
[2017-11-04 07:23] VITALS: RESP 18; TEMP 97
--- NOTE | 2017-11-04 07:44 | P.PCN ---
Date of Procedure: 11/04/17 Procedure(s) Performed: PREOPERATIVE DIAGNOSIS: 1- Lumbar Degenerative Disc Diseases 2-Lumbar spondylosis with Facet arthropathy without myelopathy. 3 POSTOPERATIVE DIAGNOSIS: 1-Lumber Degenerative Disc Diseases 2-Lumbar spondylosis with Facet arthropathy without myelopathy PROCEDURE 1. Lumbar epidural steroid injection under fluoroscopic guidance at the L3-4 level. 2. Lumbar epidurogram. ANESTHESIA: Local with 1% lidocaine 3 ml and , moderate sedation with intravenous Versed 2 mg ,and fentanyle 100 Mcg EBL: Minimal PROCEDURE INDICATION: The patient with low back pain and radiculitis symptoms unresponsive to conservative treatment. Fluoroscopy was used to optimize visualization of the needle placement and to maximize safety. PROCEDURE DESCRIPTION / TECHNIQUE: The patient was seen and identified in the preoperative area. Risks, benefits , complications including but not limited to infections ,bleeding ,allergic reaction to the medications ,nerve damage and not complete pain releife , and alternatives were discussed with the patient. The patient agreed to proceed with the procedure and signed the consent. IV was started, and vital signs were stable. Patient was taken to the OR and time out was completed. The patient was placed in the prone position on procedure table and a pillow was placed under the abdomen to reduce lumbar lordosis. The lumbosacral area was prepped and draped in the usual sterile fashion.ere closely monitored during the procedure. Conscious sedation was used during the procedure to decrease patients anxiety. Vital signs was monitered during the entire procedure. Using anterior-posterior fluoroscopy, the L3-4 interlaminar space was identified and the skin over this site was marked and then infiltrated with 1% lidocaine subcutaneously. Subsequently, a 20-gauge Tuohy epidural needle was inserted and advanced toward the epidural space using the ``Loss of resistance technique and guided by AP and lateral fluoroscopy. The correct needle position in the epidural space was verified with the injection of 2 mL of the water soluble contrast dye Isovue 200 contrast and observing an excellent epidurogram with the epidural spread of the dye, after negative aspiration for blood and CSF and in the absence of paresthesias. Again after negative aspiration, a 6 ml mixture containing 20 mg of Depo-medrol ,and 2 ml of preservative free Normal Saline, and 2 ml of preservative free lidocaine 1% solution was injected and a washout of epidurogram was seen. Needle was withdrawn intact, skin was cleansed, and bandages were applied. COMPLICATIONS: None DISPOSITION / PLANS: The patient was placed in a supine position and transferred to the recovery area in a stable condition for observation. There was no evidence of lower extremity motor or sensory deficit after the procedure. Patient was discharged from the recovery room after meeting discharge criteria. Home discharge instructions were given to the patient by the staff. The patient was reexamined prior to discharge. The patient will schedule a follow up in the clinic in 2-4 weeks.
[2017-11-04] MEDS ORDERED: IV FLUID CONTINUATION 1,000 ML IV ONE ×2 (07:50)
--- NOTE | 2017-11-04 08:14 | FL ---
Fluoroscopy HISTORY: Pain 2 seconds fluoroscopy time supplied to the referring clinician. 1 intraoperative C-arm images docume nt the procedure. See dictated report from anesthesia.
[2017-11-04 08:22] VITALS: BP 127/81; PULSE 66
== END 2017-11-04 08:40 | disposition home or self-care (01) ==
LOC: ORPAIN 06:28
PROVIDERS: ATTEND Specialist
DX: M47.26 Other spondylosis with radiculopathy, lumbar region (principal); E11.9 Type 2 diabetes mellitus without complications; M48.061 Spinal stenosis, lumbar region without neurogenic claudication
CPT/HCPCS: 62323; J2250; J1030; J3010; Q9966

== ENCOUNTER → 2017-11-23 | Outpatient (CLI) | payer MEDICARE, OTHER ==
[2017-11-23 14:07] VITALS: BP 150/83; PULSE 64; RESP 20
--- NOTE | 2017-11-23 14:24 | P.PN ---
Subjective Progress Note Date: 11/23/17 This is a 67-year-old gentleman with history of chronic lower back pain with radiation to the lower extremities. The patient had lumbar medial branch RFA and lumbar epidural steroid injection which helped his pain significantly. He states that he does not have the sharp pain anymore and he has only tightness in the thighs which is tolerable. Today, pt denies new-onset weakness, bowel/bladder incontinence, or any other signs or symptoms of cauda equina syndrome. There are no signs of acute intoxication, and no indications of medication diversion or overuse. In addition to above, 13-point review of systems is also negative for chest pain , shortness of breath, changes in vision, changes in hearing, new onset weakness , abdominal pain, diarrhea, extreme fatigue, malaise, fever, skin changes, homicidal or suicidal ideation, or bowel or bladder incontinence. Vital Signs: Reviewed in EMR Gen: AAOx3, NAD HEENT: PERRLA,hearing grossly normal Pulm: resp unlabored,CTA Heart:S1,S2, No Mur Neck: supple, trachea midline Neuro exam of the lower extremities: Normal muscle strength in the lower extremities bilaterally. Decreased but symmetrical knee reflexes and absent ankle reflexes Straight leg raising test: Negative Crow's test: Neuro: CN II-XII grossly intact, Imaging: Reviewed in EMR/chart Assessment: Lumbar spondylosis without myelopathy Lumbar neuroforaminal stenosis Lumbar DDD Plan: 1. Explanation: Opioid and psychological risk scores were reviewed. Diagnoses , prognoses, and multiple treatment options including but not limited to physical therapy, interventional therapies, adjuvant medical therapies, narcotic medication therapies, and surgery were discussed with the patient and all questions were answered to the patient's satisfaction. 2. Opioid agreement: We do not prescribe opioids for this patient 3. Counseling: The patient was counseled extensively on SMOKING CESSATION, BODY MASS INDEX, EXERCISE. Specifically, the patient was instructed regarding the importance of smoking cessation, obesity, and exercise in the context of both chronic pain and overall health. 4. Procedures: None at this point 5. Consultations: None 6. Investigations: None 7. Medications: Zanaflex 2 mg at night 8. Disposition: Return to clinic as needed Objective - Vital Signs Vital signs: Vital Signs Temp Pulse 64 11/23/17 14:00 Resp 20 11/23/17 14:00 BP 150/83 11/23/17 14:00 Pulse Ox 97 11/23/17 14:00 Intake & Output 11/22/17 11/23/17 11/23/17 18:59 06:59 18:59 Weight 107.955 kg
== END ==
LOC: PNWHC3 13:01
PROVIDERS: ATTEND Anesthesiology
DX: M99.73 Connective tissue and disc stenosis of intervertebral foramina of lumbar region (principal); M47.816 Spondylosis without myelopathy or radiculopathy, lumbar region; M51.36 Other intervertebral disc degeneration, lumbar region; Z79.899 Other long term (current) drug therapy
CPT/HCPCS: 99211

== ENCOUNTER → 2017-12-28 | Outpatient (CLI) | payer MEDICARE ==
[2017-12-28 13:15] VITALS: BP 173/109; PULSE 72; RESP 18
--- NOTE | 2017-12-28 13:58 | P.PN ---
Subjective Progress Note Date: 12/28/17 Principal diagnosis: Lumbar spinal stenosis Mr. Fair presents today with continued low back pain radiating to both legs. He reports that he is unable to do things that he was able to previously secondary to his low back pain which radiates to bilateral buttocks and into the back of both knees. He reports sometimes this pain causes weakness in his legs. He reports sometimes unable to stand up and urinate secondary to pain and weakness. He reports that his pain has been uncontrolled and was improved with previous epidural steroid injections which were done in October. At that time he was also prescribed tizanidine to help with his muscle spasms but he reports that that gave him significant muscle spasms which lasted about a week and went away after stopping it. He reports that numbness and tingling going down both legs. He is trying to avoid having surgical intervention but patient reports that he cannot deal with this type of pain. He has been in physical therapy for said did not help. Objective - Vital Signs Vital signs: Vital Signs Temp Pulse 72 12/28/17 13:06 Resp 18 12/28/17 13:06 BP 173/109 12/28/17 13:06 Pulse Ox 97 12/28/17 13:06 Intake & Output 12/27/17 12/28/17 12/28/17 18:59 06:59 18:59 Weight 106.594 kg - Exam General: Awake and alert oriented 3 no distress Respiratory exam: No audible wheezing no accessory muscle usage Cardiovascular exam: regular rate, palpable bilateral pulses, no lower extremity edema Abdominal exam: No distention nontender to palpation Cervical spine: Normal alignment, Spurling's negative, facet loading negative Lumbar spine: Loss of lumbar lordosis, normal alignment, tender to palpation over bilateral paraspinal muscles, facet loading is positive bilaterally. Straight leg raise is positive bilaterally at 45. Sacroiliac joints: Nontender to palpation, JEREMY is negative, Gaenselon negative Neuro exam: Normal sensation in bilateral upper extremities, deep tendon reflexes are 2+ bilateral upper extremities. Normal sensation in bilateral lower extremities. Deep tendon reflexes are absent in lower extremities Psych exam: Cooperative, appropriate mood Assessment and Plan Assessment: Lumbar spinal stenosis with neurogenic claudication Plan: Plan is to sent for surgical evaluation with Dr. Jurado. I've given him a referral and the phone number Dr. Jurado's office. I've also schedule patient for an L4 5 intralaminar epidural as it may help with his symptoms in the meantime. The patient that these injections will not alter his overall disease course but will help with his pain in the meantime. Patient understands the risks benefits and alternatives to the procedure and is willing to move forward Time with Patient: Less than 30
== END | disposition home or self-care (01) ==
LOC: PNWHC3 12:39
PROVIDERS: ATTEND Hospitalist
DX: M48.062 Spinal stenosis, lumbar region with neurogenic claudication (principal)
CPT/HCPCS: 99211

== ENCOUNTER → 2018-01-04 | Day surgery (SDC) | payer MEDICARE ==
[2017-12-29 12:18] VITALS: BMI 30.9
[~2018-01-04] MED LIST changes: -LACTATED RINGERS 1,000 ML IV SCH; +SODIUM CHLORIDE 0.9% 500 ML 500 ML IV ONE; +SODIUM CHLORIDE 0.9% 500 ML 500 ML IV SCH
[2018-01-04 09:48] VITALS: TEMP 97.6
[2018-01-04 09:48] LABS: Glucose,Whole Blood 109 mg/dL (75-99)
--- NOTE | 2018-01-04 10:06 | P.PCN ---
Date of Procedure: 01/04/18 Procedure(s) Performed: PREOPERATIVE DIAGNOSIS: 1- Lumbar Degenerative Disc Diseases 2-Lumbar spondylosis with Facet arthropathy without myelopathy POSTOPERATIVE DIAGNOSIS: 1-Lumber Degenerative Disc Diseases 2-Lumbar spondylosis with Facet arthropathy without myelopathy PROCEDURE 1. Lumbar epidural steroid injection under fluoroscopic guidance at the L4-5 level. 2. Lumbar epidurogram. ANESTHESIA: Local with 1% lidocaine 3 ml and , moderate sedation with intravenous Versed 2 mg ,and fentanyle 50 Mcg EBL: Minimal PROCEDURE INDICATION: The patient with low back pain and radiculitis symptoms unresponsive to conservative treatment. Fluoroscopy was used to optimize visualization of the needle placement and to maximize safety. PROCEDURE DESCRIPTION / TECHNIQUE: The patient was seen and identified in the preoperative area. Risks, benefits , complications including but not limited to infections ,bleeding ,allergic reaction to the medications ,nerve damage and not complete pain releife , and alternatives were discussed with the patient. The patient agreed to proceed with the procedure and signed the consent. IV was started, and vital signs were stable. Patient was taken to the OR and time out was completed. The patient was placed in the prone position on procedure table and a pillow was placed under the abdomen to reduce lumbar lordosis. The lumbosacral area was prepped and draped in the usual sterile fashion.ere closely monitored during the procedure. Conscious sedation was used during the procedure to decrease patients anxiety. Vital signs was monitered during the entire procedure. Using anterior-posterior fluoroscopy, the L4-5 interlaminar space was identified and the skin over this site was marked and then infiltrated with 1% lidocaine subcutaneously. Subsequently, a 20-gauge Tuohy epidural needle was inserted and advanced toward the epidural space using the ``Loss of resistance technique and guided by AP and lateral fluoroscopy. The correct needle position in the epidural space was verified with the injection of 2 mL of the water soluble contrast dye Isovue 200 contrast and observing an excellent epidurogram with the epidural spread of the dye, after negative aspiration for blood and CSF and in the absence of paresthesias. Again after negative aspiration, a 6 ml mixture containing 40 mg of Depo-medrol , and 2 ml of preservative free Normal Saline, and 2 ml of preservative free lidocaine 1% solution was injected and a washout of epidurogram was seen. Needle was withdrawn intact, skin was cleansed, and bandages were applied. COMPLICATIONS: None DISPOSITION / PLANS: The patient was placed in a supine position and transferred to the recovery area in a stable condition for observation. There was no evidence of lower extremity motor or sensory deficit after the procedure. Patient was discharged from the recovery room after meeting discharge criteria. Home discharge instructions were given to the patient by the staff. The patient was reexamined prior to discharge. The patient will schedule a follow up in the clinic in 2-4 weeks.
[2018-01-04 10:37] VITALS: BP 127/84; PULSE 65; RESP 18
--- NOTE | 2018-01-04 10:39 | FL ---
EXAMINATION TYPE: FL guided pain mgmt statistic DATE OF EXAM: 01/04/2018 HISTORY: Flouroscopy time 3 seconds of fluoroscopy provided. IMPRESSION: 1. Fluoroscopy time.
== END ==
LOC: ORPAIN 09:15
PROVIDERS: ATTEND Specialist
DX: M51.16 Intervertebral disc disorders with radiculopathy, lumbar region (principal); M47.26 Other spondylosis with radiculopathy, lumbar region; I10 Essential (primary) hypertension; G47.33 Obstructive sleep apnea (adult) (pediatric); E11.9 Type 2 diabetes mellitus without complications; F17.200 Nicotine dependence, unspecified, uncomplicated
CPT/HCPCS: 62323; J2250; J1030; J3010; Q9966

== ENCOUNTER → 2018-01-21 | Outpatient (CLI) | payer MEDICARE ==
--- NOTE | 2018-01-21 18:21 | PN ---
PROGRESS NOTE DATE OF SERVICE: 01/21/2018 This patient is a 67-year-old gentleman who has been followed in the sleep center for treatment of obstructive sleep apnea-hypopnea syndrome. Patient continues to use his CPAP equipment without problems. No snoring with the machine. No awakenings from sleep. [place] Sleepiness Scale is 4. I checked his CPAP unit. Usage is 18/30 nights for the last month. Pressure is 9 cm of water. Leak is 37 L/minute, which is borderline. Apnea-hypopnea index is 1.5, which is absolutely perfect. MEDICATIONS: 1. Metformin. 2. Atorvastatin. 3. Losartan. 4. Montelukast. 5. Aspirin. 6. Januvia. 7. Tramadol. 8. Lyrica. 9. Albuterol. 10.Hydrocodone. 11.Budesonide. PHYSICAL EXAMINATION: GENERAL: A pleasant patient in no distress. VITAL SIGNS: BP 130/75, HR 59, RR 16, height 5 feet 11 inches, weight 241.4. Body mass index 33.6. Oxygen saturation at room air 98%. HEENT: PERRLA, EOMI. Evaluation of oropharynx showed tongue protrudes midline. Extremely low position of soft palate. NECK: Supple. No JVD. Thyroid is not palpable. LUNGS: Clear to percussion and to auscultation. Good air exchange. No wheezing or rhonchi. HEART: S1, S2 regular. No murmurs, gallops or rubs. ABDOMEN: Obese. EXTREMITIES: No clubbing or cyanosis. FOREIGN LANGUAGE STENOGRAPHER: Awake, alert, and oriented X3. Cranial nerves 2 to 7 intact. There is no fasciculation or atrophy. noted. No focal deficits observed. IMPRESSION: 1. Severe obstructive sleep apnea-hypopnea syndrome. Patient is benefitting from CPAP treatment. 2. Hypertension. 3. Diabetes mellitus. 4. Peripheral neuropathy secondary to diabetes. 5. Obesity. 6. Nasal septum deviation. 7. Status post left eye cataract surgery; blindness in the left eye. 8. Chronic obstructive pulmonary disease. 9. History of smoking for more than 60 pack/years. Patient continues to smoke. PLAN: 1. Patient will continue to use CPAP equipment. I discussed with him the necessity of using it every night for the whole night. 2. He will try to stop smoking. He promised me to decrease the amount of cigarettes at least now. 3. Losing weight. 4. No driving if feeling any sleepiness. 5. We will maintain all necessary prescription for mask, tube, filters for CPAP unit. Thank you very much for allowing me to participate in the management of your patient. Sincerely, Ashish Aguilera MD, PhD, FAASM Diplomat of [employer] [employer] Architectural Administrative Assistant of [facility] [place] MMODL / KRISTENN: [phone] /
== END ==
LOC: SLEEP 15:19
PROVIDERS: ATTEND Internal Medicine
DX: G47.33 Obstructive sleep apnea (adult) (pediatric) (principal); I10 Essential (primary) hypertension; E66.9 Obesity, unspecified; J34.2 Deviated nasal septum; Z98.890 Other specified postprocedural states; J44.9 Chronic obstructive pulmonary disease, unspecified; E11.42 Type 2 diabetes mellitus with diabetic polyneuropathy; Z87.890 Personal history of sex reassignment; Z68.33 Body mass index [BMI] 33.0-33.9, adult; Z79.84 Long term (current) use of oral hypoglycemic drugs; Z79.899 Other long term (current) drug therapy; Z79.82 Long term (current) use of aspirin; Z79.891 Long term (current) use of opiate analgesic

== ENCOUNTER → 2018-02-26 | Outpatient (CLI) | payer MEDICARE, OTHER ==
[2018-02-26 13:34] LABS: Appearance,Urine Clear (Clear); Basophils # (A) 0.1 k/uL (0-0.2); Basophils % (A) 1 %; Bilirubin,Urine Negative (Negative); Blood,Urine Negative (Negative); Color,Urine Yellow; Eosinophils # (A) 0.1 k/uL (0-0.7); Eosinophils % (A) 2 %; Glucose,Urine (UA) Negative (Negative); HCT 48.7 % (39.0-53.0); HGB 15.6 gm/dL (13.0-17.5); Ketones,Urine Negative (Negative); Leukocyte Esterase,Urine Trace (Negative); Lymphocytes # (A) 1.8 k/uL (1.0-4.8); Lymphocytes % (A) 21 %; MCH 30.9 pg (25.0-35.0); MCHC 32.1 g/dL (31.0-37.0); MCV 96.3 fL (80.0-100.0); Monocytes # (A) 0.5 k/uL (0-1.0); Monocytes % (A) 5 %; Mucus,Urine Rare /hpf; Neutrophils # (A) 5.8 k/uL (1.3-7.7); Neutrophils % (A) 68 %; Nitrite,Urine Negative (Negative); PH, Urine 5.5 (5.0-8.0); Platelet Count 186 k/uL (150-450); Protein,Urine Negative (Negative); RBC 5.05 m/uL (4.30-5.90); RDW 13.7 % (11.5-15.5); Specific Gravity,Urine 1.013 (1.001-1.035); Urobilinogen,Urine <2.0 mg/dL (<2.0); WBC 8.5 k/uL (3.8-10.6); WBC,Urine 2 /hpf (0-5)
[2018-02-26 13:47] LABS: Prothrombin Time 10.8 sec (9.0-12.0)
--- NOTE | 2018-02-26 13:52 | XR ---
EXAMINATION TYPE: XR chest 2V DATE OF EXAM: 02/26/2018 COMPARISON: NONE TECHNIQUE: PA and lateral views submitted. HISTORY: Presurgical FINDINGS: The lungs are clear and there is no pneumothorax, pleural effusion, or focal pneumonia. There is ec deven of the aorta with atherosclerotic changes. Biapical pleural thickening. Hyperinflation suggests COPD. Hypertrophic and degenerative change of the spine. Pulmonary arteries are prominent correlate for pulmonary arterial hypertension. IMPRESSION: 1. No acute process.
[2018-02-26 13:56] LABS: ALT 29 U/L (21-72); AST 25 U/L (17-59); Albumin 4.4 g/dL (3.5-5.0); Alkaline Phosphatase 79 U/L (38-126); Anion Gap 8 mmol/L; Blood Urea Nitrogen 17 mg/dL (9-20); Calcium 9.6 mg/dL (8.4-10.2); Carbon Dioxide 30 mmol/L (22-30); Chloride 104 mmol/L (98-107); Glucose 116 mg/dL (74-99); Potassium 4.6 mmol/L (3.5-5.1); Sodium 142 mmol/L (137-145); Total Bilirubin 0.6 mg/dL (0.2-1.3); Total Protein 6.8 g/dL (6.3-8.2)
== END | disposition home or self-care (01) ==
LOC: LABPAT 12:35
PROVIDERS: ATTEND Orthopaedic Surgery Orthopaedic Surgery of the Spine
DX: Z01.818 Encounter for other preprocedural examination (principal); Z01.812 Encounter for preprocedural laboratory examination; M43.16 Spondylolisthesis, lumbar region
CPT/HCPCS: 36415; 71046; 80053; 81001; 85025; 85610; 86850; 86900; 86901; 87070; 93005

== ENCOUNTER 2018-03-08 10:54 | Inpatient (IN) | payer MEDICARE, OTHER ==
[2018-03-01 15:32] VITALS: BMI 31.8
[~2018-03-08 10:54] MED LIST changes: +BACITRACIN 50,000 UNIT, POLYMYXIN B 500,000 UNIT in SODIUM CHLORIDE 0.9% IRRIGATIO 1,00... IRRIGATION ONE; +DEXAMETHASONE SOD PHOSPHATE 10 MG/ML 1 ML VIAL IV ONE; +LIDOCAINE 1% 20 ML VIAL (10MG/ML) FOR IV START INTRADERMA PRN; +MIDAZOLAM 2 MG/2 ML VIAL IV PRN; +ONDANSETRON 4 MG/2 ML VIAL IVP ONE; -SODIUM CHLORIDE 0.9% 500 ML 500 ML IV ONE; -SODIUM CHLORIDE 0.9% 500 ML 500 ML IV SCH; +ceFAZolin IN SWFI 2 GM/20 ML SYRINGE IVP ONE; +fentaNYL (PF) 50 MCG/ML 2 ML AMP IV PRN
[2018-03-08] MEDS: LACTATED RINGERS 1,000 ML IV SCH (12:07)
[2018-03-08 12:12] LABS: Glucose,Whole Blood 102 mg/dL (75-99)
[2018-03-08] MEDS ORDERED: ePHEDrine SULFATE/0.9% NACL/PF 50 MG/5 ML SYRINGE IV ONE (12:24)
[2018-03-08] MEDS ORDERED: ROCURONIUM BROMIDE 10 MG/ML 10 ML VIAL IV ONE (12:24)
[2018-03-08] MEDS ORDERED: MIDAZOLAM 2 MG/2 ML VIAL ONE (12:24)
[2018-03-08] MEDS ORDERED: GLYCOPYRROLATE 0.2 MG/ML 2 ML VIAL ONE (12:24)
[2018-03-08] MEDS ORDERED: SUCCINYLCHOLINE CHLORIDE 100 MG/5 ML SYR IV ONE (12:24)
[2018-03-08] MEDS ORDERED: fentaNYL (PF) 50 MCG/ML 2 ML AMP ONE (12:24)
[2018-03-08] MEDS ORDERED: LIDOCAINE 1% INJ 10MG/ML (20 ML MDV) ONE (12:24)
[2018-03-08] MEDS ORDERED: PROPOFOL 10 MG/ML 20 ML VIAL IV ONE (12:24)
[2018-03-08] MEDS ORDERED: PHENYLEPHRINE-0.9% NACL SYG 1 MG/10 ML SYRINGE ONE (12:24)
[2018-03-08] MEDS ORDERED: NEOSTIGMINE 1 MG/ML 10 ML VIAL ONE (12:24)
[2018-03-08] MEDS ORDERED: GELATIN SPONGE,ABSORB (LARGE) 1 EACH SPONGE TOPICAL ONE (13:17)
[2018-03-08] MEDS ORDERED: LIDOCAINE 0.5%-EPI 1:200,000 50 ML VIAL SQ ONE (13:17)
[2018-03-08] MEDS ORDERED: THROMBIN (BOVINE) 5,000 UNIT VIAL TOPICAL ONE (13:17)
[2018-03-08] MEDS ORDERED: LACTATED RINGERS 1,000 ML IV ONE ×2 (14:02)
[2018-03-08] MEDS ORDERED: MAGNESIUM HYDROXIDE 2,400 MG/10 ML CUP PO PRN (15:37)
[2018-03-08] MEDS ORDERED: BENZOCAINE/MENTHOL LOZENG 1 EACH LOZENGE MUCOUS MEM PRN (15:37)
[2018-03-08] MEDS ORDERED: HYDROmorphone 0.5 MG/0.5 ML SYRINGE IVP PRN (15:37)
[2018-03-08] MEDS ORDERED: HYDROcodone/APAP 5-325MG 1 EACH TAB PO PRN (15:37)
[2018-03-08] MEDS ORDERED: traMADol 50 MG TAB PO PRN (15:40)
[2018-03-08] MEDS ORDERED: ONDANSETRON 4 MG/2 ML VIAL IVP ONE (15:41)
--- NOTE | 2018-03-08 15:48 | P.OP ---
Date of Procedure: 03/08/18 Preoperative Diagnosis: Spondylolisthesis L4 5, severe stenosis L4 5, lower extremity radiculopathy, neurogenic claudication, degenerative disc disease Postoperative Diagnosis: Same Anesthesia: GETA Pathology: none sent Condition: stable Disposition: PACU Description of Procedure: DESCRIPTION OF PROCEDURE(S): BRIEF OPERATIVE NOTE Preoperative Diagnosis: Spondylolisthesis L4 5, severe stenosis L4 5, lower extremity radiculopathy, neurogenic claudication, degenerative disc disease Postoperative Diagnosis: Same Procedure: Laminectomy and decompression with wide bilateral foraminotomies L4 5 Minimally invasive Posterior lateral decompression with discectomy and posterior facet fusion L4 5 Minimally invasive Transforaminal lumbar interbody fusion for a 360 fusion L4 5 Discectomy for decompression L4 5 Placement of interbody graft L4 5 Local autogenous bone grafting Harvesting of bone marrow aspirate via the pedicle of L4 on the right Use of Cell Saver Use of bone graft extenders Surgeon: Dr. Jurado Gravel Roofer: Albin GONZALES who is present throughout the entire the case persistence during positioning, dissection, exposure, visualization, and all crucial elements of the case as well as closure. Anesthesia: General anesthesia per Dr. Salas Estimated blood loss: Approximately 100ml Complications: None apparent Components implanted: K2M minimally invasive Henning pedicle screw system with 4 screws measuring 6.5 x 50, 2 rods and 1 interbody Dumont cage measuring 8 mm with 1 osteoamp sponge and 15 mL of DBX bone putty supplement the local autogenous and bone marrow aspirate Disposition: To recovery room in good stable condition. OPERATIVE INDICATIONS The patient has had long-standing issues in their lower back and lower extremities. He was found have severe spinal stenosis L4 5 along with dynamic instability with a grade 1-2 spondylolisthesis at L4 5 which correlated well with his low back and lower extremity symptoms The patient has been through conservative treatment. He is not having any lasting benefit despite aggressive conservative care and was having worsening of his pain and symptoms in his back and lower extremities. We discussed various treatment options including surgery, and the patient wishes to proceed with surgery We discussed the risk, patient's alternatives and benefits of surgery including but not limited to, risk of bleeding risk of infection, risk of need for further surgery , risk of decreased, loss of motion, muscle function, malunion nonunion, hardware failure, nerve damage, paralysis, heart attack, blindness and . OPERATIVE SUMMARY After discussing all the risks, patient alternatives and benefits at length, the patient elected to proceed with surgical intervention, signed informed consent, and presented for their procedure. The patient was seen and examined in the preoperative holding area and the surgical site was marked. The patient was given antibiotics and brought to the operating room. The patient was sedated and intubated by anesthesia in standard fashion. The patient was positioned on to the operating room table in a prone position on the appropriate frame which was well-padded and well molded. We were careful to pad any bony prominences and pressure points. We were careful to maintain the patient's cervical spine and good neutral alignment and position throughout. The patient was prepped and draped in a normal standard fashion. An appropriate timeout and keystone protocol performed. We were able to proceed with the surgery. The local wound area was infiltrated with local anesthetic. I was able utilize C-arm guidance to establish appropriate position over the pedicles bilaterally at the appropriate levels at L4 5. With the appropriate levels confirmed was able to make small stab incisions over the appropriate pedicle sites bilaterally. Utilizing C-arm in his house able to establish a Jamshidi needle over the lateral aspect of the pedicle and advanced the trocar into the pedicle being careful not to breech superiorly inferiorly medially or laterally. Position was confirmed regularly with AP and lateral images on C- arm. I was able to establish the trocar into the pedicle appropriately into the posterior aspect of the vertebral body bilaterally at the appropriate levels at L4 5. This was done at each of the pedicle positions and each of the vertebrae. On the right of the pedicle of L4 through the establish trocar was able to withdraw approximately 20 mL of bone marrow aspirate to be used later to supplement the bone graft area I was able place the guidewire into the trocar and into the vertebral body appropriately under C-arm guidance. Dissection was taken down over the wire to the appropriate starting position for the screw placed. The appropriate length screw was chosen, threaded over the guidewire and screwed appropriately into the pedicle and vertebral body under C-arm guidance in excellent alignment and position with good bony purchase. This is done at each of the screw sites at the appropriate levels at L4 and L5 bilaterally. With the screws intact I extended the incision to connect the screw hole sites on the most symptomatic side on the left at L4 5. I dissected down to establish access over the pars and lamina to the base of the spinous process. I was able to expose the facet joint. The capsule the facet was taken down and showed some severe facet arthrosis at the joint. I was able to use a combination of curettes and Kerrison rongeurs and a high-speed drill to take down the facet joint and do a facetectomy. Partial laminectomy was also performed. I was able get excellent foraminal decompression and central decompression with undermining across midline to perform a laminectomy centrally and contralaterally. As able get good central decompression. The ligamentum flavum was taken down to further decompress centrally and at bilateral neural foramen. As able get wide bilateral foraminotomy and decompression centrally and at the bilateral neural foramen I was able to expose the disc space and visualize the traversing nerve root. Note was made of some disc protrusion at the level causing further compression of the nerve root. I was able to establish a annulotomy at the appropriate level protecting soft tissue and neural structures. Note was made of some disc desiccation at the disc. I performed a complete discectomy with accommodation of curettes and rasps and scrapers. I was able get good endplate preparation at the disc space. I sized for the appropriate size interbody spacer protecting the soft tissue and neural structures. The wound was copiously irrigated and suctioned dry. There is no evidence of any dural tear or leak. I was able to pack the disc space with local autogenous bone graft as well as a small amount of bone graft which was also placed into the interbody cage itself. Protecting the soft tissue structures and neural structures I was able place the interbody cage in good alignment and good position with good fit and fill at the interbody space at L4 5. His issues was confirmed with C-arm guidance. Good hemostasis maintained. There is no evidence of any dural tear or leak. The wound was irrigated and suctioned dry. With the hardware intact, intraoperative C-arm imaging was again taken which showed good alignment and position of the hardware at the appropriate levels. We were then able to measure, contour and place the rods and appropriate hardware bilaterally. I was able to place capcrews, tighten them down, and torque them with the torque screwdriver appropriately. With this intact I was able to place the local autogenous bone graft with additional bone graft enhancer as necessary into the posterior lateral gutters over the decorticated transverse processes. The remainder of the bone graft was placed over the facet joint on the contralateral side after taking down the facet joint capsule. With the bone graft intact, a stable construct, and good decompression at the appropriate levels, we were able to proceed with closure. Good hemostasis was maintained. There is no evidence of dural tear or leak. The fascia was closed for a watertight closure. he subcuticular tissue was closed with absorbable suture. The wound was cleaned and dried and dressed with the appropriate dressing. The drapes were broken down. The patient was gently rolled back onto their hospital bed being careful to maintain their cervical spine and good neutral alignment and position. They were woken up by anesthesia, extubated, and brought to the recovery room in good stable condition. The patient will be admitted to the hospital for appropriate postoperative care , medical management and monitoring. We will continue to follow them closely about the postoperative course.
[2018-03-08] MEDS: HYDROmorphone 0.5 MG/0.5 ML SYRINGE IVP PRN ×4 (15:55→16:24)
--- NOTE | 2018-03-08 15:58 | FL ---
EXAMINATION TYPE: FL guidance operating room DATE OF EXAM: 03/08/2018 HISTORY: Flouroscopy time 90 seconds of fluoroscopy provided. IMPRESSION: 1. Fluoroscopy time.
[2018-03-08 16:21] LABS: Glucose,Whole Blood 112 mg/dL (75-99)
[2018-03-08] MEDS: metFORMIN 500 MG TAB PO SCH (18:25)
[2018-03-08] MEDS: SODIUM CHLORIDE 0.9% 1,000 ML IV SCH (20:00)
[2018-03-08 20:58] LABS: Glucose,Whole Blood 111 mg/dL (75-99)
[2018-03-08] MEDS ORDERED: SITAGLIPTIN PHOS PO SCH (21:00)
[2018-03-08] MEDS ORDERED: METFORMIN HCL PO SCH (21:00)
[2018-03-08] MEDS ORDERED: HYDROmorphone 0.5 MG/0.5 ML SYRINGE IVP STA (21:04)
[2018-03-08] MEDS: PREGABALIN 100 MG CAP PO SCH (21:22)
[2018-03-08] MEDS: ceFAZolin IN SWFI 2 GM/20 ML SYRINGE IVP SCH (21:22)
--- NOTE | 2018-03-08 21:48 | P.CONS ---
History of Present Illness - History of Present Illness This is a pleasant 67 years old male with past medical history of diabetes mellitus, hyperlipidemia, hypertension, ulcer arthritis, sleep apnea on CPAP/ BiPAP, gout. Patient status post laminectomy and decompression of L4-L5 , for his severe disc disease associated with spondylolisthesis and severe stenosis at L4-L5 with lower extremity radiculopathy and neurogenic claudication. Patient was lying in bed in mild distress due to postoperative pain and the lower back. No chest pain or dyspnea. No abdominal pain. No nausea vomiting. Review of Systems CONSTITUTIONAL: No fever, no malaise, no fatigue. HEENT: No recent visual problems or hearing problems. Denied any sore throat. CARDIOVASCULAR: No orthopnea, PND, no palpitations, no syncope. PULMONARY: No shortness of breath, no cough, no hemoptysis. GASTROINTESTINAL: No diarrhea, no nausea, no vomiting, no abdominal pain. Normoactive bowel sounds. NEUROLOGICAL: No headaches, no weakness, no numbness. HEMATOLOGICAL: Denies any bleeding or petechiae. GENITOURINARY: Denies any burning micturition, frequency, or urgency. MUSCULOSKELETAL/RHEUMATOLOGICAL: Denies any joint pain, swelling, or any muscle pain. ENDOCRINE: Denies any polyuria or polydipsia. Past Medical History Past Medical History: Diabetes Mellitus, Hyperlipidemia, Hypertension, Osteoarthritis (OA), Sleep Apnea/CPAP/BIPAP Additional Past Medical History / Comment(s): Hx gout, back pain- L4 and L5 area , uses CPAP. History of Any Multi-Drug Resistant Organisms: None Reported Past Surgical History: Appendectomy Additional Past Surgical History / Comment(s): Pain procedures, colonoscopy Past Anesthesia/Blood Transfusion Reactions: No Reported Reaction Smoking Status: Current every day smoker - Past Family History Father Family Medical History: Cancer Medications and Allergies Home Medications Medication Instructions Recorded Confirmed Type Aspirin [Adult Low Dose Aspirin EC] 81 mg PO DAILY 06/16/17 03/08/18 History Atorvastatin [Lipitor] 20 mg PO DAILY 06/16/17 03/08/18 History HYDROcodone/APAP 10-325MG [[place] 1 tab PO BID 06/16/17 03/08/18 History 10-325] Isosorbide Mononitrate [Isosorbide 30 mg PO DAILY 06/16/17 03/08/18 History Mononitrate ER] Pregabalin [Lyrica] 100 mg PO BID 06/16/17 03/08/18 History RX: Losartan Potassium 50 mg PO DAILY 06/16/17 03/08/18 History sitaGLIPtin PHOS/metFORMIN HCL 1 tab PO BID 06/16/17 03/08/18 History [Janumet 50-1,000 mg Tablet] traMADol HCL [Ultram] 50 mg PO BID PRN 06/16/17 03/08/18 History Allergies Allergy/AdvReac Type Severity Reaction Status Date / Time No Known Allergies Allergy Verified 03/08/18 17:11 Physical Exam Vitals: Vital Signs Temp Pulse Resp BP Pulse Ox 03/08/18 18:05 61 144/91 03/08/18 17:50 61 137/82 96 03/08/18 17:35 57 L 129/80 91 L 03/08/18 17:27 15 03/08/18 17:26 96 F L 62 15 131/81 100 03/08/18 16:30 62 16 130/81 100 03/08/18 16:15 64 16 131/80 100 03/08/18 16:00 71 16 134/86 100 03/08/18 15:44 96.9 F L 79 16 138/86 100 03/08/18 11:53 96.8 F L 65 20 129/87 97 Intake and Output 03/08/18 03/08/18 03/08/18 06:59 14:59 22:59 Intake Total 1501 50 Output Total 200 Balance 1501 -150 Intake: IV 1501 50 Output: Urine 100 Estimated Blood Loss 100 GENERAL: The patient is alert and oriented x3, not in any acute distress. Well developed, well nourished. HEENT: Pupils are round and equally reacting to light. EOMI. No scleral icterus. No conjunctival pallor. Normocephalic, atraumatic. No pharyngeal erythema. No thyromegaly. CARDIOVASCULAR: S1 and S2 present. No murmurs, rubs, or gallops. PULMONARY: Chest is clear to auscultation, no wheezing or crackles. ABDOMEN: Soft, nontender, nondistended, normoactive bowel sounds. No palpable organomegaly. -MUSCULOSKELETAL: No joint swelling or deformity. Lower back wound closed with dressing on site. Further examination is deferred to the surgical primary team. EXTREMITIES: No cyanosis, clubbing, or pedal edema. NEUROLOGICAL: Gross neurological examination did not reveal any focal deficits. SKIN: No rashes. Results Labs: Abnormal Lab Results - Last 24 Hours (Table) 03/08/18 03/08/18 Range/Units 12:02 16:17 POC Glucose (mg/dL) 102 H 112 H (75-99) mg/dL Assessment and Plan Assessment: severe disc disease associated with spondylolisthesis and severe stenosis at L4- L5 with lower extremity radiculopathy and neurogenic claudication.. status post laminectomy and decompression of L4-L5 History of diabetes mellitus, type II Hyperlipidemia Essential hypertension History of pressor arthritis History of sleep apnea on CPAP/BiPAP History of gout Plan: This is a pleasant 67 years old male is a status post laminectomy and decompression surgery for his severe disc disease at L4-L5. Labs and medication were reviewed.. Continue same treatment. Continue with symptomatic treatment. Resume home medication. Monitor lytes and vitals. DVT prophylaxis and pain management as per surgery primary team. Pepcid for GI prophylaxis. Further recommendation based on the clinical course of the patient Thank you for consulting us, please feel free to contact us for any further question or clarification
[2018-03-09] MEDS: HYDROcodone/APAP 5-325MG 1 EACH TAB PO PRN ×3 (00:19→14:18)
[2018-03-09] MEDS: LACTATED RINGERS 1,000 ML IV SCH (04:03)
[2018-03-09] MEDS: ceFAZolin IN SWFI 2 GM/20 ML SYRINGE IVP SCH (04:33)
[2018-03-09] MEDS: SODIUM CHLORIDE 0.9% 1,000 ML IV SCH ×2 (07:01→19:56)
[2018-03-09] MEDS: HYDROmorphone 1 MG/ML 1 ML SYRINGE IVP PRN ×3 (07:02→15:51)
[2018-03-09 07:21] LABS: Glucose,Whole Blood 132 mg/dL (75-99)
[2018-03-09 07:28] LABS: Basophils % (A) 0 %; Eosinophils # (A) 0.1 k/uL (0-0.7); Eosinophils % (A) 1 %; HCT 42.8 % (39.0-53.0); Lymphocytes % (A) 10 %; MCHC 32.8 g/dL (31.0-37.0); MCV 94.5 fL (80.0-100.0); Mean Platelet Volume 6.3; Monocytes # (A) 0.7 k/uL (0-1.0); Monocytes % (A) 6 %; Neutrophils # (A) 8.3 k/uL (1.3-7.7); Neutrophils % (A) 81 %; Platelet Count 151 k/uL (150-450); RBC 4.53 m/uL (4.30-5.90); RDW 13.7 % (11.5-15.5); WBC 10.3 k/uL (3.8-10.6)
[2018-03-09 07:38] LABS: Anion Gap 6 mmol/L; Blood Urea Nitrogen 16 mg/dL (9-20); Calcium 9.2 mg/dL (8.4-10.2); Carbon Dioxide 29 mmol/L (22-30); Chloride 105 mmol/L (98-107); Glucose 123 mg/dL (74-99); Potassium 4.7 mmol/L (3.5-5.1); Sodium 140 mmol/L (137-145)
--- NOTE | 2018-03-09 09:05 | P.PN ---
Progress Note - Text Progress Note Date: 03/09/18 Orthopedic Spine Patient is a pleasant 67-year-old male who is seen and examined at the bedside following posterior lateral decompression and fusion performed yesterday. Patient states they are doing ok postsurgically. He does have increased pain and surgical sites with increased activities. His pain is better controlled while lying in bed. He does have some pain in bilateral lower extremities was standing states his pain is controlled in his legs while lying in bed. His Keyes catheter has been discontinued. He is been urinating without difficulty but does have some burning with urination. Currently does not complain of nausea, vomiting, fever, or chills. Patient states pain has been adequately controlled. He has not had much of an appetite postoperatively. He is encouraged to eat some breakfast this morning. Physical Exam Lumbar Fusion: Status post surgical day number 1 Patient is awake, alert, and oriented 3 Vital signs stable Good chest excursion with deep inspiration and expiration Abdomen soft nontender Dorsiflexion, plantarflexion, and extensor hallucis longus positive sustained bilaterally No signs or symptoms of DVT; no calf pain; pneumatic cuffs intact bilateral lower extremities Dressing is clean, dry, and intact; no erythema, purulence, or signs of infection Hemovac drain well secure Neurovascularly intact bilaterally lower extremities Assessment: L4-5 minimally invasive posterior lateral decompression and fusion with transforaminal lumbar interbody fusion Low back pain L4-5 spondylolisthesis Lower extremity radiculopathy Neurogenic claudication Lumbar degenerative disc disease History of diabetes type 1 History of hypertension Plan: 1. Ambulate as tolerated; work with Physical Therapy to increase mobilization 2. Continue pain control with IV and oral medications 3. Dressing to remain intact with Telfa and Tegaderm 4. Medical management can continue to manage patient for patient's other medical issues 5. We will continue to follow the patient closely 6. Patient can follow-up with Albin Sales PA-C or Dr. Steven Jurado at [facility] in 2-3 weeks following discharge
[2018-03-09] MEDS: ATORVASTATIN 20 MG TAB PO SCH (09:43)
[2018-03-09] MEDS: metFORMIN 500 MG TAB PO SCH ×2 (09:43→17:46)
[2018-03-09] MEDS: LOSARTAN 50 MG TAB PO SCH (09:43)
[2018-03-09] MEDS: LINAGLIPTIN 5 MG TABLET PO SCH (09:43)
[2018-03-09] MEDS: ISOSORBIDE MONONITRATE ER 30 MG TAB.ER.24H PO SCH (09:43)
[2018-03-09] MEDS: ASPIRIN 81 MG PO SCH (09:43)
[2018-03-09] MEDS: SENNOSIDES-DOCUSATE SODIUM 1 EACH TAB PO SCH (09:43)
[2018-03-09] MEDS: PREGABALIN 100 MG CAP PO SCH ×2 (09:43→21:34)
[2018-03-09] MEDS: FAMOTIDINE 20 MG/2 ML VIAL IV SCH ×2 (09:44→21:34)
[2018-03-09 12:07] LABS: Glucose,Whole Blood 171 mg/dL (75-99)
--- NOTE | 2018-03-09 12:28 | XR ---
EXAM TYPE: LUMBAR SPINE X RAY SERIES COMPARISON: NONE HISTORY: Postop TECHNIQUE: 5 views are submitted. FINDINGS: 5 views were obtained intraoperatively and demonstrates surgical change which appears in near-anatomi c alignment but is of reduced resolution and therefore limited. IMPRESSION: 1. Operative images
--- NOTE | 2018-03-09 13:58 | P.PN ---
Subjective This is a pleasant 67 years old male with past medical history of diabetes mellitus, hyperlipidemia, hypertension, ulcer arthritis, sleep apnea on CPAP/ BiPAP, gout. Patient status post laminectomy and decompression of L4-L5 , for his severe disc disease associated with spondylolisthesis and severe stenosis at L4-L5 with lower extremity radiculopathy and neurogenic claudication. Patient was lying in bed in mild distress due to postoperative pain and the lower back. No chest pain or dyspnea. No abdominal pain. No nausea vomiting. 03/09/2018 Patient status post laminectomy and decompression of L4-L5 , today is postop day #1. Patient denies chest pain or abdominal pain. No dyspnea. He still complains from low back pain that shows down his lower extremities especially when he moves. Patient complains from dysuria, Keyes catheter was discontinued treated today. However if he is not moving he feels more comfortable. Vital signs stable. CBC and BMP were unremarkable. Sugar looks controlled. We will send for urine analysis Objective - Vital Signs Vital signs: Vital Signs Temp 98.6 F 03/09/18 08:33 Pulse 85 03/09/18 08:33 Resp 18 03/09/18 08:33 BP 163/95 03/09/18 08:33 Pulse Ox 95 03/09/18 08:33 Intake & Output 03/08/18 03/09/18 03/09/18 18:59 06:59 18:59 Intake Total 1751 Output Total 200 400 Balance 1551 -400 Intake: IV 1751 Output: Urine 100 400 Estimated Blood Loss 100 - Exam GENERAL: The patient is alert and oriented x3, not in any acute distress. Well developed, well nourished. HEENT: Pupils are round and equally reacting to light. EOMI. No scleral icterus. No conjunctival pallor. Normocephalic, atraumatic. No pharyngeal erythema. No thyromegaly. CARDIOVASCULAR: S1 and S2 present. No murmurs, rubs, or gallops. PULMONARY: Chest is clear to auscultation, no wheezing or crackles. ABDOMEN: Soft, nontender, nondistended, normoactive bowel sounds. No palpable organomegaly. -MUSCULOSKELETAL: No joint swelling or deformity. Lower back wound closed with dressing on site. Further examination is deferred to the surgical primary team. EXTREMITIES: No cyanosis, clubbing, or pedal edema. NEUROLOGICAL: Gross neurological examination did not reveal any focal deficits. SKIN: No rashes. - Labs CBC & Chem 7: 03/09/18 06:20 03/09/18 06:20 Labs: Abnormal Lab Results - Last 24 Hours (Table) 03/08/18 03/08/18 03/09/18 Range/Units 16:17 20:56 06:20 Neutrophils # 8.3 H (1.3-7.7) k/uL Creatinine (0.66-1.25) mg/dL Glucose (74-99) mg/dL POC Glucose (mg/dL) 112 H 111 H (75-99) mg/dL 03/09/18 03/09/18 03/09/18 Range/Units 06:20 07:10 11:56 Neutrophils # (1.3-7.7) k/uL Creatinine 0.63 L (0.66-1.25) mg/dL Glucose 123 H (74-99) mg/dL POC Glucose (mg/dL) 132 H 171 H (75-99) mg/dL Assessment and Plan Assessment: severe disc disease associated with spondylolisthesis and severe stenosis at L4- L5 with lower extremity radiculopathy and neurogenic claudication.. status post laminectomy and decompression of L4-L5 History of diabetes mellitus, type II Hyperlipidemia Essential hypertension History of pressor arthritis History of sleep apnea on CPAP/BiPAP History of gout Plan: This is a pleasant 67 years old male is a status post laminectomy and decompression surgery for his severe disc disease at L4-L5. Labs and medication were reviewed.. Continue same treatment. Continue with symptomatic treatment. Resume home medication. Monitor lytes and vitals. DVT prophylaxis and pain management as per surgery primary team. Pepcid for GI prophylaxis. Further recommendation based on the clinical course of the patient Thank you for consulting us, please feel free to contact us for any further question or clarification
[2018-03-09] MEDS: DIAZEPAM 5 MG TAB PO PRN ×3 (14:21→22:06)
[2018-03-09 17:14] LABS: Glucose,Whole Blood 113 mg/dL (75-99)
[2018-03-09] MEDS: HYDROcodone/APAP 7.5-325MG 1 EACH TAB PO PRN ×2 (17:46→22:06)
[2018-03-09 20:43] LABS: Appearance,Urine Clear (Clear); Bilirubin,Urine Negative (Negative); Blood,Urine Negative (Negative); Color,Urine Light Yellow; Glucose,Urine (UA) Negative (Negative); Ketones,Urine Negative (Negative); Leukocyte Esterase,Urine Negative (Negative); Nitrite,Urine Negative (Negative); PH, Urine 6.5 (5.0-8.0); Protein,Urine Negative (Negative); Urobilinogen,Urine <2.0 mg/dL (<2.0)
[2018-03-09 21:05] LABS: Glucose,Whole Blood 183 mg/dL (75-99)
[2018-03-10] MEDS: HYDROmorphone 1 MG/ML 1 ML SYRINGE IVP PRN ×2 (01:24→11:58)
[2018-03-10] MEDS: HYDROcodone/APAP 7.5-325MG 1 EACH TAB PO PRN ×4 (04:21→19:30)
[2018-03-10] MEDS: DIAZEPAM 5 MG TAB PO PRN ×3 (04:21→19:30)
[2018-03-10] MEDS: LACTATED RINGERS 1,000 ML IV SCH (05:27)
[2018-03-10 07:20] LABS: Glucose,Whole Blood 112 mg/dL (75-99)
[2018-03-10] MEDS: LOSARTAN 50 MG TAB PO SCH (08:23)
[2018-03-10] MEDS: PREGABALIN 100 MG CAP PO SCH ×2 (08:23→22:01)
[2018-03-10] MEDS: SENNOSIDES-DOCUSATE SODIUM 1 EACH TAB PO SCH (08:24)
[2018-03-10] MEDS: ATORVASTATIN 20 MG TAB PO SCH (08:24)
[2018-03-10] MEDS: ASPIRIN 81 MG PO SCH (08:24)
[2018-03-10] MEDS: metFORMIN 500 MG TAB PO SCH ×2 (08:24→19:31)
[2018-03-10] MEDS: LINAGLIPTIN 5 MG TABLET PO SCH (08:24)
[2018-03-10] MEDS: FAMOTIDINE 20 MG/2 ML VIAL IV SCH (08:24)
[2018-03-10] MEDS: ISOSORBIDE MONONITRATE ER 30 MG TAB.ER.24H PO SCH ×2 (08:24→08:25)
[2018-03-10 11:43] LABS: Glucose,Whole Blood 123 mg/dL (75-99)
--- NOTE | 2018-03-10 15:42 | P.PN ---
Subjective This is a pleasant 67 years old male with past medical history of diabetes mellitus, hyperlipidemia, hypertension, ulcer arthritis, sleep apnea on CPAP/ BiPAP, gout. Patient status post laminectomy and decompression of L4-L5 , for his severe disc disease associated with spondylolisthesis and severe stenosis at L4-L5 with lower extremity radiculopathy and neurogenic claudication. Patient was lying in bed in mild distress due to postoperative pain and the lower back. No chest pain or dyspnea. No abdominal pain. No nausea vomiting. 03/09/2018 Patient status post laminectomy and decompression of L4-L5 , today is postop day #1. Patient denies chest pain or abdominal pain. No dyspnea. He still complains from low back pain that shows down his lower extremities especially when he moves. Patient complains from dysuria, Keyes catheter was discontinued treated today. However if he is not moving he feels more comfortable. Vital signs stable. CBC and BMP were unremarkable. Sugar looks controlled. We will send for urine analysis 03/10/2018 Patient status post laminectomy and decompression of L4-L5 , today is postop day #1. Patient denies chest pain or abdominal pain. No dyspnea. He still complains from low back pain that shows down his lower extremities especially when he moves . His urinalysis came back negative for infection. Patient still needs to stay in the hospital for pain control and healing, as he lives by himself at home. Objective - Vital Signs Vital signs: Vital Signs Temp 97.8 F 03/10/18 08:07 Pulse 80 03/10/18 08:07 Resp 18 03/10/18 08:07 BP 144/87 03/10/18 08:07 Pulse Ox 96 03/10/18 08:07 Intake & Output 03/09/18 03/10/18 03/10/18 18:59 06:59 18:59 Intake Total 236 Output Total 1300 Balance 236 -1300 Intake: Oral 236 Output: Urine 1300 - Exam GENERAL: The patient is alert and oriented x3, not in any acute distress. Well developed, well nourished. HEENT: Pupils are round and equally reacting to light. EOMI. No scleral icterus. No conjunctival pallor. Normocephalic, atraumatic. No pharyngeal erythema. No thyromegaly. CARDIOVASCULAR: S1 and S2 present. No murmurs, rubs, or gallops. PULMONARY: Chest is clear to auscultation, no wheezing or crackles. ABDOMEN: Soft, nontender, nondistended, normoactive bowel sounds. No palpable organomegaly. -MUSCULOSKELETAL: No joint swelling or deformity. Lower back wound closed with dressing on site. Further examination is deferred to the surgical primary team. EXTREMITIES: No cyanosis, clubbing, or pedal edema. NEUROLOGICAL: Gross neurological examination did not reveal any focal deficits. SKIN: No rashes. - Labs CBC & Chem 7: 03/09/18 06:20 03/09/18 06:20 Labs: Abnormal Lab Results - Last 24 Hours (Table) 03/09/18 03/09/18 03/10/18 Range/Units 17:03 20:54 07:08 POC Glucose (mg/dL) 113 H 183 H 112 H (75-99) mg/dL 03/10/18 Range/Units 11:32 POC Glucose (mg/dL) 123 H (75-99) mg/dL Assessment and Plan Assessment: severe disc disease associated with spondylolisthesis and severe stenosis at L4- L5 with lower extremity radiculopathy and neurogenic claudication.. status post laminectomy and decompression of L4-L5 History of diabetes mellitus, type II Hyperlipidemia Essential hypertension History of pressor arthritis History of sleep apnea on CPAP/BiPAP History of gout Plan: This is a pleasant 67 years old male is a status post laminectomy and decompression surgery for his severe disc disease at L4-L5. Labs and medication were reviewed.. Continue same treatment. Continue with symptomatic treatment. Resume home medication. Monitor lytes and vitals. DVT prophylaxis and pain management as per surgery primary team. Pepcid for GI prophylaxis. Further recommendation based on the clinical course of the patient Thank you for consulting us, please feel free to contact us for any further question or clarification
--- NOTE | 2018-03-10 16:21 | P.PN ---
Progress Note - Text Progress Note Date: 03/10/18 Orthopedic Spine Patient is a pleasant 67-year-old male who is seen and examined at the bedside following posterior lateral decompression and fusion performed Thursday. Patient states they are doing ok postsurgically. He does have increased pain and surgical sites with increased activities. His pain is better controlled while lying in bed. He does have some pain in bilateral lower extremities while standing states his pain is controlled in his legs while lying in bed. He has been able to transfer to a bedside chair. His pain is been better controlled since adding Valium and increasing [place] from 5 mg/325 mg up to [place] 7.5 mg/ 325 mg. His Keyes catheter has been discontinued. He is been urinating without difficulty. Currently does not complain of nausea, vomiting, fever, or chills. Patient states pain has been adequately controlled. He has not had much of an appetite postoperatively. He is encouraged to eat some breakfast this morning. He has been using his incentive spirometer Physical Exam Lumbar Fusion: Status post surgical day number 2 Patient is awake, alert, and oriented 3 Vital signs stable Good chest excursion with deep inspiration and expiration Abdomen soft nontender Dorsiflexion, plantarflexion, and extensor hallucis longus positive sustained bilaterally No signs or symptoms of DVT; no calf pain; pneumatic cuffs intact bilateral lower extremities Dressing is dry and intact with 2 small areas of dried blood; no erythema, purulence, or signs of infection Neurovascularly intact bilaterally lower extremities Assessment: L4-5 minimally invasive posterior lateral decompression and fusion with transforaminal lumbar interbody fusion Low back pain L4-5 spondylolisthesis Lower extremity radiculopathy Neurogenic claudication Lumbar degenerative disc disease History of diabetes type 1 History of hypertension Plan: 1. Ambulate as tolerated; work with Physical Therapy to increase mobilization 2. Continue pain control with IV and oral medications; continue with Dilaudid IV, [place] 7.5 mg/325 mg, and Valium as prescribed as needed for control of symptoms; we will plan to begin weaning the IV Dilaudid as his pain becomes better controlled in anticipation for discharge 3. Dressing to remain intact with Telfa and Tegaderm 4. Medical management can continue to manage patient for patient's other medical issues 5. We will continue to follow the patient closely; depending on the patient progresses postoperatively, we may plan to discharge him home or have him discharged to a rehabilitation facility prior to returning home 6. Patient can follow-up with Albin Sales PA-C or Dr. Steven Jurado at [facility] in 2-3 weeks following discharge
[2018-03-10 17:35] LABS: Glucose,Whole Blood 125 mg/dL (75-99)
[2018-03-10] MEDS: SODIUM CHLORIDE 0.9% 1,000 ML IV SCH ×2 (19:22→22:02)
[2018-03-10 21:23] LABS: Glucose,Whole Blood 160 mg/dL (75-99)
[2018-03-10] MEDS: FAMOTIDINE 20 MG TAB PO SCH (22:01)
[2018-03-11] MEDS: DIAZEPAM 5 MG TAB PO PRN ×3 (03:03→18:17)
[2018-03-11] MEDS: HYDROcodone/APAP 7.5-325MG 1 EACH TAB PO PRN ×4 (03:03→18:17)
[2018-03-11] MEDS: LACTATED RINGERS 1,000 ML IV SCH (06:00)
[2018-03-11 07:11] LABS: Glucose,Whole Blood 109 mg/dL (75-99)
--- NOTE | 2018-03-11 10:16 | P.PN ---
Progress Note - Text Progress Note Date: 03/11/18 Postoperative day #3 Patient is seen and examined today at bedside. The patient has some pain around the surgical site as expected. He is having some improved mobility but is still having some difficulty getting around on his own. Pain is being controlled with medication. Physical Exam Afebrile with stable vital signs Abdomen is soft nontender. Chest has good excursion deep and space expiration The incision site is clean dry and intact. No erythema there is no purulence. Dressing is stable with no further drainage. There is no erythema or evidence of infection Extremities have not had neurologic change from prior to surgery. He has sustained dorsal flexion plantarflexion and EHL intact Calves and thighs were soft nontender without evidence of DVT. Assessment/Plan Postoperative day #3 status post minimally invasive decompression and fusion for his severe stenosis with spondylolisthesis and lower extremity radiculopathy Patient is progressing as expected from the surgery. He had been on oral pain medications for over 2 years and seems to be adequately controlled with medication currently. He does not feel safe getting up on his own and feels that he needs 1 more day before he is able to be at home on his own. We will continue to increase the patient's mobilization with therapy. We will continue pain control with oral or IV medications. He'll likely be discharged home tomorrow. It is okay for him to shower with the Tegaderm dressing intact today. We'll continue to follow patient closely.
[2018-03-11] MEDS: SODIUM CHLORIDE 0.9% 1,000 ML IV SCH (10:27)
[2018-03-11] MEDS: metFORMIN 500 MG TAB PO SCH ×2 (10:31→18:17)
[2018-03-11] MEDS: LOSARTAN 50 MG TAB PO SCH (10:31)
[2018-03-11] MEDS: ASPIRIN 81 MG PO SCH (10:32)
[2018-03-11] MEDS: PREGABALIN 100 MG CAP PO SCH ×2 (10:32→20:31)
[2018-03-11] MEDS: FAMOTIDINE 20 MG TAB PO SCH ×2 (10:32→20:31)
[2018-03-11] MEDS: LINAGLIPTIN 5 MG TABLET PO SCH (10:32)
[2018-03-11] MEDS: ATORVASTATIN 20 MG TAB PO SCH (10:32)
[2018-03-11] MEDS: SENNOSIDES-DOCUSATE SODIUM 1 EACH TAB PO SCH (10:32)
[2018-03-11] MEDS: ISOSORBIDE MONONITRATE ER 30 MG TAB.ER.24H PO SCH (10:37)
[2018-03-11 12:58] LABS: Glucose,Whole Blood 112 mg/dL (75-99)
[2018-03-11 17:30] LABS: Glucose,Whole Blood 148 mg/dL (75-99)
[2018-03-11 20:34] LABS: Glucose,Whole Blood 111 mg/dL (75-99)
[2018-03-12] MEDS: HYDROcodone/APAP 7.5-325MG 1 EACH TAB PO PRN ×3 (00:32→12:57)
[2018-03-12] MEDS: DIAZEPAM 5 MG TAB PO PRN ×2 (00:32→12:56)
[2018-03-12] MEDS: SODIUM CHLORIDE 0.9% 1,000 ML IV SCH (00:51)
--- NOTE | 2018-03-12 01:08 | P.PN ---
Subjective This is a pleasant 67 years old male with past medical history of diabetes mellitus, hyperlipidemia, hypertension, ulcer arthritis, sleep apnea on CPAP/ BiPAP, gout. Patient status post laminectomy and decompression of L4-L5 , for his severe disc disease associated with spondylolisthesis and severe stenosis at L4-L5 with lower extremity radiculopathy and neurogenic claudication. Patient was lying in bed in mild distress due to postoperative pain and the lower back. No chest pain or dyspnea. No abdominal pain. No nausea vomiting. 03/09/2018 Patient status post laminectomy and decompression of L4-L5 , today is postop day #1. Patient denies chest pain or abdominal pain. No dyspnea. He still complains from low back pain that shows down his lower extremities especially when he moves. Patient complains from dysuria, Keyes catheter was discontinued treated today. However if he is not moving he feels more comfortable. Vital signs stable. CBC and BMP were unremarkable. Sugar looks controlled. We will send for urine analysis 03/10/2018 Patient status post laminectomy and decompression of L4-L5 , today is postop day #1. Patient denies chest pain or abdominal pain. No dyspnea. He still complains from low back pain that shows down his lower extremities especially when he moves . His urinalysis came back negative for infection. Patient still needs to stay in the hospital for pain control and healing, as he lives by himself at home. 03/11/2018 pt feels improving and he is happy about that, he has less back pain and more easy for him to move today .pt feels he can go home tomorrow. vitals are stable and pt is tolerating diet well . has good appetite Objective - Vital Signs Vital signs: Vital Signs Temp 98.4 F 03/11/18 19:45 Pulse 80 03/11/18 19:45 Resp 16 03/11/18 19:45 BP 97/64 03/11/18 19:45 Pulse Ox 95 03/11/18 19:45 - Exam GENERAL: The patient is alert and oriented x3, not in any acute distress. Well developed, well nourished. HEENT: Pupils are round and equally reacting to light. EOMI. No scleral icterus. No conjunctival pallor. Normocephalic, atraumatic. No pharyngeal erythema. No thyromegaly. CARDIOVASCULAR: S1 and S2 present. No murmurs, rubs, or gallops. PULMONARY: Chest is clear to auscultation, no wheezing or crackles. ABDOMEN: Soft, nontender, nondistended, normoactive bowel sounds. No palpable organomegaly. -MUSCULOSKELETAL: No joint swelling or deformity. Lower back wound closed with dressing on site. Further examination is deferred to the surgical primary team. EXTREMITIES: No cyanosis, clubbing, or pedal edema. NEUROLOGICAL: Gross neurological examination did not reveal any focal deficits. SKIN: No rashes. - Labs CBC & Chem 7: 03/09/18 06:20 03/09/18 06:20 Labs: Abnormal Lab Results - Last 24 Hours (Table) 03/11/18 03/11/18 03/11/18 Range/Units 06:59 12:42 17:07 POC Glucose (mg/dL) 109 H 112 H 148 H (75-99) mg/dL 03/11/18 Range/Units 20:22 POC Glucose (mg/dL) 111 H (75-99) mg/dL Assessment and Plan Assessment: severe disc disease associated with spondylolisthesis and severe stenosis at L4- L5 with lower extremity radiculopathy and neurogenic claudication.. status post laminectomy and decompression of L4-L5 History of diabetes mellitus, type II Hyperlipidemia Essential hypertension History of pressor arthritis History of sleep apnea on CPAP/BiPAP History of gout Plan: This is a pleasant 67 years old male is a status post laminectomy and decompression surgery for his severe disc disease at L4-L5. Labs and medication were reviewed.. Continue same treatment. Continue with symptomatic treatment. Resume home medication. Monitor lytes and vitals. DVT prophylaxis and pain management as per surgery primary team. Pepcid for GI prophylaxis. Further recommendation based on the clinical course of the patient Thank you for consulting us, please feel free to contact us for any further question or clarification
[2018-03-12] MEDS: LACTATED RINGERS 1,000 ML IV SCH (04:44)
[2018-03-12 07:19] LABS: Glucose,Whole Blood 123 mg/dL (75-99)
[2018-03-12 08:02] VITALS: BP 128/77; PULSE 80; RESP 16; TEMP 98.6
[2018-03-12] MEDS: PREGABALIN 100 MG CAP PO SCH (08:46)
[2018-03-12] MEDS: FAMOTIDINE 20 MG TAB PO SCH (08:47)
[2018-03-12] MEDS: LOSARTAN 50 MG TAB PO SCH (08:47)
[2018-03-12] MEDS: metFORMIN 500 MG TAB PO SCH (08:47)
[2018-03-12] MEDS: LINAGLIPTIN 5 MG TABLET PO SCH (08:47)
[2018-03-12] MEDS: ASPIRIN 81 MG PO SCH (08:47)
[2018-03-12] MEDS: SENNOSIDES-DOCUSATE SODIUM 1 EACH TAB PO SCH (08:47)
[2018-03-12] MEDS: ATORVASTATIN 20 MG TAB PO SCH (08:47)
[2018-03-12] MEDS: ISOSORBIDE MONONITRATE ER 30 MG TAB.ER.24H PO SCH (08:47)
--- NOTE | 2018-03-12 09:15 | P.DS ---
Providers Date of admission: 03/08/18 11:16 Expected date of discharge: 03/12/18 Attending physician: Marco Jurado Consults: 03/08/18 15:41 Consult Physician Routine Consulting Provider: Ghazal Faustin Consult Reason/Comments: Medical management Do you want consulting provider notified?: Yes 03/08/18 16:52 Consult Physician Routine Consulting Provider: Delma Varela Consult Reason/Comments: medical management Do you want consulting provider notified?: Already Contacted Primary care physician: Ghazal Faustin - Discharge Diagnosis(es) (1) Spondylolisthesis, lumbar region Current Visit: Yes Status: Acute (2) Neurogenic claudication Current Visit: Yes Status: Acute (3) Lumbar back pain with radiculopathy affecting lower extremity Current Visit: Yes Status: Acute (4) Status post lumbar spinal fusion Current Visit: Yes Status: Acute (5) Degenerative lumbar spinal stenosis Current Visit: No Status: Acute (6) Degenerative lumbar disc Current Visit: No Status: Chronic (7) History of diabetes mellitus, type I Current Visit: Yes Status: Acute (8) History of hypertension Current Visit: Yes Status: Acute Hospital Course: This is a pleasant 67-year-old male who presented with L4-5 spondylolisthesis and severe stenosis with lower extremity radiculopathy, neurogenic claudication , and degenerative disc disease who failed outpatient conservative therapy. He was admitted for an L4-5 minimally invasive posterior lateral decompression and fusion with transforaminal lumbar interbody fusion. The patient tolerated the procedure well and did well postoperatively. His pain has been better controlled the lumbar spine. He has been able to transfer to a bedside chair and ambulate to the restroom. Condition on day of discharge stable. Patient will be discharged home. Patient was cleared preoperatively for surgery by Dr. Faustin. Patient currently denies any nausea, vomiting, fever, or chills. Patient is eating and voiding freely without difficulty. Patient may shower Tegaderm dressing intact. Patient may remove Tegaderm dressing in 2 days and shower without a dressing at that time. Patient should keep Steri-Strips intact and allow them to fall off naturally. Patient should refrain from driving until at least after their first follow-up appointment in the office. Patient should avoid excessive bending, lifting, and twisting; no lifting greater than 10 pounds. Patient may continue with home medications as previously prescribed while avoiding anti-inflammatories over the first 6 weeks postoperatively. A prescription has been placed for Valium 5 mg 1 tab every 12 hours as needed for muscle spasm, dispensed #30 at discharge. MAPS was reviewed today with an Overdose Risk Score: 80 Patient currently takes [place] 10 mg/325 mg in outpatient setting as prescribed by Dr. Santana. Patient is under pain contract with Dr. Santana. We discussed he should continue take his medication as prescribed and may contact Dr. Santana for any refill prescriptions or change in dosing or frequency of this medication. Patient has a past medical history which includes diabetes type 1 and hypertension. Physical Exam Lumbar Fusion: Status post surgical day number 4 Patient is awake, alert, and oriented 3 Vital signs stable Good chest excursion with deep inspiration and expiration Abdomen soft nontender Dorsiflexion, plantarflexion, and extensor hallucis longus positive sustained bilaterally No signs or symptoms of DVT; no calf pain; pneumatic cuffs intact bilateral lower extremities Dressing is dry and intact with 2 small areas of dried blood; no erythema, purulence, or signs of infection Dressing is removed during physical examination and will be reapplied Neurovascularly intact bilaterally lower extremities Procedures: L4-5 minimally invasive posterior lateral decompression and fusion with transforaminal lumbar interbody fusion Patient Condition at Discharge: Stable Plan - Discharge Summary Discharge Rx Participant: Yes New Discharge Prescriptions: New Diazepam [Valium] 5 mg PO BID PRN #30 tab PRN Reason: Spasms No Action HYDROcodone/APAP 10-325MG [[place] 10-325] 1 tab PO BID Atorvastatin [Lipitor] 20 mg PO DAILY sitaGLIPtin PHOS/metFORMIN HCL [Janumet 50-1,000 mg Tablet] 1 tab PO BID Losartan Potassium 50 mg PO DAILY traMADol HCL [Ultram] 50 mg PO BID PRN PRN Reason: Pain Pregabalin [Lyrica] 100 mg PO BID Aspirin [Adult Low Dose Aspirin EC] 81 mg PO DAILY Isosorbide Mononitrate [Isosorbide Mononitrate ER] 30 mg PO DAILY Discharge Medication List Aspirin [Adult Low Dose Aspirin EC] 81 mg PO DAILY 06/16/17 [History] Atorvastatin [Lipitor] 20 mg PO DAILY 06/16/17 [History] HYDROcodone/APAP 10-325MG [[place] 10-325] 1 tab PO BID 06/16/17 [History] Isosorbide Mononitrate [Isosorbide Mononitrate ER] 30 mg PO DAILY 06/16/17 [ History] Losartan Potassium 50 mg PO DAILY 06/16/17 [History] Pregabalin [Lyrica] 100 mg PO BID 06/16/17 [History] sitaGLIPtin PHOS/metFORMIN HCL [[place] 50-1,000 mg Tablet] 1 tab PO BID [History] traMADol HCL [Ultram] 50 mg PO BID PRN 06/16/17 [History] Diazepam [Valium] 5 mg PO BID PRN #30 tab 03/11/18 [Rx] Follow up Appointment(s)/Referral(s): [facility] [NON-STAFF] - As Needed (walker) Albin Sales PAC [PHYSICIAN DISHROOM ATTENDANT] - 03/26/18 10:00 am (Patient may follow-up with Albin Sales PA-C or Dr. Steven Jurado at [facility] in 2-3 weeks following discharge. ) [facility], [NON-STAFF] - As Needed Ghazal Faustin MD [Primary Care Provider] - 03/17/18 10:30 am Activity/Diet/Wound Care/Special Instructions: 1. Patient may shower with Tegaderm dressing intact. 2. Patient may remove Tegaderm dressing in 3 days and shower without a dressing at that time. 3. Patient should keep Steri-Strips intact and allow them to fall off naturally. 4. Patient should refrain from driving until at least after their first follow- up appointment in the office. 5. Patient should avoid excessive bending, twisting, and lifting; no lifting greater than 10 pounds 6. Take medications as prescribed 7. Do not soak in tub Discharge Disposition: HOME SELF-CARE
--- NOTE | 2018-03-12 11:47 | P.PN ---
Subjective This is a pleasant 67 years old male with past medical history of diabetes mellitus, hyperlipidemia, hypertension, ulcer arthritis, sleep apnea on CPAP/ BiPAP, gout. Patient status post laminectomy and decompression of L4-L5 , for his severe disc disease associated with spondylolisthesis and severe stenosis at L4-L5 with lower extremity radiculopathy and neurogenic claudication. Patient was lying in bed in mild distress due to postoperative pain and the lower back. No chest pain or dyspnea. No abdominal pain. No nausea vomiting. 03/09/2018 Patient status post laminectomy and decompression of L4-L5 , today is postop day #1. Patient denies chest pain or abdominal pain. No dyspnea. He still complains from low back pain that shows down his lower extremities especially when he moves. Patient complains from dysuria, Keyes catheter was discontinued treated today. However if he is not moving he feels more comfortable. Vital signs stable. CBC and BMP were unremarkable. Sugar looks controlled. We will send for urine analysis 03/10/2018 Patient status post laminectomy and decompression of L4-L5 , today is postop day #1. Patient denies chest pain or abdominal pain. No dyspnea. He still complains from low back pain that shows down his lower extremities especially when he moves . His urinalysis came back negative for infection. Patient still needs to stay in the hospital for pain control and healing, as he lives by himself at home. 03/11/2018 pt feels improving and he is happy about that, he has less back pain and more easy for him to move today .pt feels he can go home tomorrow. vitals are stable and pt is tolerating diet well . has good appetite 03/12/2018 Patient keep improving and doing well with less pain and feel comfortable moving around. However he has some temporal increase in his pain after he tried to put on his shoes. Patient is discouraged from doing movement that will hurt him or causing more pain and he understands that and he tends to follow-up with instructions, other than that patient thinks he is ready to go home. Patient is being discharged home today, he was still in the he does not want to go to rehab. [facility], and home healthcare patient has not been set up for him yet. Patient was instructed to follow up with his PCP in one week besides the orthopedic team upon discharge., He already has appointment set up for him by the primary team. Patient was asking to provide him with more nicotine patch to help him abstain from cigarettes smoking. Patient was consults and he agrees to quit. Pt is stable from medically to be discharged, however he needs follow up as outpt Objective - Vital Signs Vital signs: Vital Signs Temp 98.6 F 03/12/18 07:51 Pulse 80 03/12/18 07:51 Resp 16 03/12/18 07:51 BP 128/77 03/12/18 07:51 Pulse Ox 93 L 03/12/18 07:51 - Exam GENERAL: The patient is alert and oriented x3, not in any acute distress. Well developed, well nourished. HEENT: Pupils are round and equally reacting to light. EOMI. No scleral icterus. No conjunctival pallor. Normocephalic, atraumatic. No pharyngeal erythema. No thyromegaly. CARDIOVASCULAR: S1 and S2 present. No murmurs, rubs, or gallops. PULMONARY: Chest is clear to auscultation, no wheezing or crackles. ABDOMEN: Soft, nontender, nondistended, normoactive bowel sounds. No palpable organomegaly. -MUSCULOSKELETAL: No joint swelling or deformity. Lower back wound closed with dressing on site. Further examination is deferred to the surgical primary team. EXTREMITIES: No cyanosis, clubbing, or pedal edema. NEUROLOGICAL: Gross neurological examination did not reveal any focal deficits. SKIN: No rashes. - Labs CBC & Chem 7: 03/09/18 06:20 03/09/18 06:20 Labs: Abnormal Lab Results - Last 24 Hours (Table) 03/11/18 03/11/18 03/11/18 Range/Units 12:42 17:07 20:22 POC Glucose (mg/dL) 112 H 148 H 111 H (75-99) mg/dL 03/12/18 Range/Units 07:00 POC Glucose (mg/dL) 123 H (75-99) mg/dL Assessment and Plan Assessment: severe disc disease associated with spondylolisthesis and severe stenosis at L4- L5 with lower extremity radiculopathy and neurogenic claudication.. status post laminectomy and decompression of L4-L5 History of diabetes mellitus, type II Hyperlipidemia Essential hypertension History of pressor arthritis History of sleep apnea on CPAP/BiPAP History of gout Plan: This is a pleasant 67 years old male is a status post laminectomy and decompression surgery for his severe disc disease at L4-L5. Labs and medication were reviewed.. Continue same treatment. Continue with symptomatic treatment. Resume home medication. Monitor lytes and vitals. DVT prophylaxis and pain management as per surgery primary team. Pepcid for GI prophylaxis. Further recommendation based on the clinical course of the patient Thank you for consulting us, please feel free to contact us for any further question or clarification
[2018-03-12 12:04] LABS: Glucose,Whole Blood 191 mg/dL (75-99)
== END 2018-03-12 15:47 | disposition home or self-care (01) | DRG 455 ==
LOC: 2ORMAIN 11:16 → 4SSUR 15:50
PROVIDERS: ADMIT Orthopaedic Surgery Orthopaedic Surgery of the Spine; ATTEND Orthopaedic Surgery Orthopaedic Surgery of the Spine
PROC: 0SG0071 Fusion of Lumbar Vertebral Joint with Autologous Tissue Substitute, Posterior Approach, Posterior Column, Open Approach (ICD-10-PCS; 2018-03-08)
PROC: 0ST20ZZ Resection of Lumbar Vertebral Disc, Open Approach (ICD-10-PCS; 2018-03-08)
PROC: 07DS3ZZ Extraction of Vertebral Bone Marrow, Percutaneous Approach (ICD-10-PCS; 2018-03-08)
PROC: 30233N0 Transfusion of Autologous Red Blood Cells into Peripheral Vein, Percutaneous Approach (ICD-10-PCS; 2018-03-08)
PROC: 0SG00AJ Fusion of Lumbar Vertebral Joint with Interbody Fusion Device, Posterior Approach, Anterior Column, Open Approach (ICD-10-PCS; principal; 2018-03-08 13:00)
DX: M48.062 Spinal stenosis, lumbar region with neurogenic claudication (principal); M51.16 Intervertebral disc disorders with radiculopathy, lumbar region; M43.16 Spondylolisthesis, lumbar region; E10.9 Type 1 diabetes mellitus without complications; G47.33 Obstructive sleep apnea (adult) (pediatric); M19.90 Unspecified osteoarthritis, unspecified site; I10 Essential (primary) hypertension; E78.5 Hyperlipidemia, unspecified; M10.9 Gout, unspecified; F17.210 Nicotine dependence, cigarettes, uncomplicated; Z79.82 Long term (current) use of aspirin; Z79.899 Other long term (current) drug therapy; Z79.4 Long term (current) use of insulin; Z99.89 Dependence on other enabling machines and devices
CPT/HCPCS: 72020; 80048; 81003; 85025; 86850; 86900; 86901; 94760

== ENCOUNTER 2018-05-07 10:54 | Emergency (ER) | payer MEDICARE, OTHER ==
[2018-05-07 11:03] VITALS: TEMP 97.8
--- NOTE | 2018-05-07 11:35 | ED ---
General Adult HPI - General Chief complaint: Abdominal Pain Stated complaint: abdominal pain Time Seen by Provider: 05/07/18 11:11 Source: patient Mode of arrival: ambulatory Limitations: no limitations - History of Present Illness Initial comments: Dictation was produced using [employer] dictation software. please excuse any grammatical, word or spelling errors. Chief Complaint: 68-year-old male with multiple comorbidities presents with nausea vomiting abdominal pain 5 days. History of Present Illness: Is 68-year-old male. 5 days ago patient reports having the onset of abdominal pain. Patient states he feels gassy. He feels nauseous however no vomiting. Patient has been having regular bowel movements. Patient still tolerating by mouth. He has history of appendectomy no other abdominal surgeries. Patient states he has a bowel movement every other day. He states his bowel movements have not been hard. Denies any exacerbating or mitigating factors. No fever, chills or night sweats. The ROS documented in this emergency department record has been reviewed and confirmed by me. Those systems with pertinent positive or negative responses have been documented in the HPI. All other systems are other negative and/or noncontributory. PHYSICAL EXAM: General Impression: Alert and oriented x3, not in acute distress HEENT: Normocephalic atraumatic, extra-ocular movements intact, pupils equal and reactive to light bilaterally, mucous membranes moist. Cardiovascular: Heart regular rate and rhythm, S1&S2 audible, no murmurs, rubs or gallops Chest: Lungs clear to auscultation bilaterally, no rhonchi, no wheeze, no rales Abdomen: Mild tympany to percussion Musculoskeletal: Pulses present and equal in all extremities, no peripheral edema Motor: no focal deficits noted Neurological: CN II-XII grossly intact, no focal motor or sensory deficits noted Skin: Intact with no visualized rashes Psych: Normal affect and mood ED course: 68-year-old male multiple comorbidities presents with chief complaint of abdominal pain. Patient's well-appearing. Vital signs on arrival are within acceptable limits.Patient is well-appearing and tolerating by mouth. Laboratory evaluation was obtained CBC, coag panel, metabolic panel is unremarkable. Urinalysis is negative. KUB x-ray shows nonspecific abdomen. There are some prominent small bowel loops which likely correlates to ileus. Patient does take opiates and tramadol. Patient clinical presentation is suspicious for ileus. Patient given Toradol regimented and MiraLAX pill. Patient told to use his narcotic medication sparingly given that these medications are known to cause ileus. Patient also given prescription for Colace. He started to ambulate as much as possible to help reduce his symptoms and promote forward bowel function. - Related Data Home Medications Medication Instructions Recorded Confirmed Aspirin [Adult Low Dose Aspirin EC] 81 mg PO DAILY 06/16/17 05/07/18 Atorvastatin [Lipitor] 20 mg PO DAILY 06/16/17 05/07/18 HYDROcodone/APAP 10-325MG [[place] 1 tab PO TID PRN 06/16/17 05/07/18 10-325] Isosorbide Mononitrate [Isosorbide 30 mg PO DAILY 06/16/17 05/07/18 Mononitrate ER] Losartan Potassium 50 mg PO DAILY 06/16/17 05/07/18 Pregabalin [Lyrica] 100 mg PO BID 06/16/17 05/07/18 sitaGLIPtin PHOS/metFORMIN HCL 1 tab PO BID 06/16/17 05/07/18 [Janumet 50-1,000 mg Tablet] traMADol HCL [Ultram] 50 mg PO BID PRN 06/16/17 05/07/18 Previous Rx's Medication Instructions Recorded Docusate [Colace] 100 mg PO DAILY #24 capsule 05/07/18 Polyethylene Glycol 3350 [Miralax] 17 gm PO ONCE #1 packet 05/07/18 Allergies Allergy/AdvReac Type Severity Reaction Status Date / Time No Known Allergies Allergy Verified 05/07/18 11:12 Review of Systems ROS Statement: Those systems with pertinent positive or pertinent negative responses have been documented in the HPI. ROS Other: All systems not noted in ROS Statement are negative. Past Medical History Past Medical History: Diabetes Mellitus, Hyperlipidemia, Hypertension, Osteoarthritis (OA), Sleep Apnea/CPAP/BIPAP Additional Past Medical History / Comment(s): Hx gout, back pain- L4 and L5 area, uses CPAP. History of Any Multi-Drug Resistant Organisms: None Reported Past Surgical History: Appendectomy Additional Past Surgical History / Comment(s): Pain procedures, colonoscopy Past Anesthesia/Blood Transfusion Reactions: No Reported Reaction Past Psychological History: No Psychological Hx Reported Smoking Status: Current every day smoker Past Alcohol Use History: None Reported Past Drug Use History: Marijuana - Past Family History Father Family Medical History: Cancer General Exam Limitations: no limitations Course Vital Signs 05/07/18 05/07/18 11:01 13:00 Temperature 97.8 F Pulse Rate 63 56 L Respiratory 18 16 Rate Blood Pressure 153/90 114/79 O2 Sat by Pulse 97 97 Oximetry Medical Decision Making - Lab Data Result diagrams: 05/07/18 11:30 05/07/18 11:30 Lab Results 05/07/18 05/07/18 05/07/18 Range/Units 11:30 11:30 11:30 WBC 9.4 (3.8-10.6) k/uL RBC 5.10 (4.30-5.90) m/uL Hgb 15.2 (13.0-17.5) gm/dL Hct 47.0 (39.0-53.0) % MCV 92.1 (80.0-100.0) fL MCH 29.8 (25.0-35.0) pg MCHC 32.4 (31.0-37.0) g/dL RDW 14.5 (11.5-15.5) % Plt Count 181 (150-450) k/uL Neutrophils % 78 % Lymphocytes % 12 % Monocytes % 6 % Eosinophils % 3 % Basophils % 0 % Neutrophils # 7.3 (1.3-7.7) k/uL Lymphocytes # 1.1 (1.0-4.8) k/uL Monocytes # 0.5 (0-1.0) k/uL Eosinophils # 0.3 (0-0.7) k/uL Basophils # 0.0 (0-0.2) k/uL PT (9.0-12.0) sec INR (<1.2) Sodium 137 (137-145) mmol/L Potassium 4.5 (3.5-5.1) mmol/L Chloride 107 (98-107) mmol/L Carbon Dioxide 22 (22-30) mmol/L Anion Gap 8 mmol/L BUN 17 (9-20) mg/dL Creatinine 0.42 L (0.66-1.25) mg/dL Est GFR (CKD-EPI)AfAm >90 (>60 ml/min/1.73 sqM) Est GFR (CKD-EPI)NonAf >90 (>60 ml/min/1.73 sqM) Glucose 112 H (74-99) mg/dL Plasma Lactic Acid Shaun 0.7 (0.7-2.0) mmol/L Calcium 9.1 (8.4-10.2) mg/dL Total Bilirubin 0.6 (0.2-1.3) mg/dL AST 26 (17-59) U/L ALT 38 (21-72) U/L Alkaline Phosphatase 96 (38-126) U/L Total Protein 6.3 (6.3-8.2) g/dL Albumin 3.9 (3.5-5.0) g/dL Lipase 66 (23-300) U/L Urine Color Urine Appearance (Clear) Urine pH (5.0-8.0) Ur Specific [place] (1.001-1.035) Urine Protein (Negative) Urine Glucose (UA) (Negative) Urine Ketones (Negative) Urine Blood (Negative) Urine Nitrite (Negative) Urine Bilirubin (Negative) Urine Urobilinogen (<2.0) mg/dL Ur Leukocyte Esterase (Negative) 05/07/18 05/07/18 Range/Units 11:30 11:45 WBC (3.8-10.6) k/uL RBC (4.30-5.90) m/uL Hgb (13.0-17.5) gm/dL Hct (39.0-53.0) % MCV (80.0-100.0) fL MCH (25.0-35.0) pg MCHC (31.0-37.0) g/dL RDW (11.5-15.5) % Plt Count (150-450) k/uL Neutrophils % % Lymphocytes % % Monocytes % % Eosinophils % % Basophils % % Neutrophils # (1.3-7.7) k/uL Lymphocytes # (1.0-4.8) k/uL Monocytes # (0-1.0) k/uL Eosinophils # (0-0.7) k/uL Basophils # (0-0.2) k/uL PT 11.1 (9.0-12.0) sec INR 1.0 (<1.2) Sodium (137-145) mmol/L Potassium (3.5-5.1) mmol/L Chloride (98-107) mmol/L Carbon Dioxide (22-30) mmol/L Anion Gap mmol/L BUN (9-20) mg/dL Creatinine (0.66-1.25) mg/dL Est GFR (CKD-EPI)AfAm (>60 ml/min/1.73 sqM) Est GFR (CKD-EPI)NonAf (>60 ml/min/1.73 sqM) Glucose (74-99) mg/dL Plasma Lactic Acid Shaun (0.7-2.0) mmol/L Calcium (8.4-10.2) mg/dL Total Bilirubin (0.2-1.3) mg/dL AST (17-59) U/L ALT (21-72) U/L Alkaline Phosphatase (38-126) U/L Total Protein (6.3-8.2) g/dL Albumin (3.5-5.0) g/dL Lipase (23-300) U/L Urine Color Yellow Urine Appearance Clear (Clear) Urine pH 6.0 (5.0-8.0) Ur Specific [place] 1.021 (1.001-1.035) Urine Protein Negative (Negative) Urine Glucose (UA) Negative (Negative) Urine Ketones Negative (Negative) Urine Blood Negative (Negative) Urine Nitrite Negative (Negative) Urine Bilirubin Negative (Negative) Urine Urobilinogen <2.0 (<2.0) mg/dL Ur Leukocyte Esterase Negative (Negative) Disposition Clinical Impression: Ileus Disposition: HOME SELF-CARE Condition: Good Instructions (If sedation given, give patient instructions): Ileus (ED) Prescriptions: Docusate [Colace] 100 mg PO DAILY #24 capsule Polyethylene Glycol 3350 [Miralax] 17 gm PO ONCE #1 packet Is patient prescribed a controlled substance at d/c from ED?: No Referrals: Ghazal Faustin MD [Primary Care Provider] - 1-2 days Time of Disposition: 13:21
[2018-05-07 11:46] LABS: Basophils % (A) 0 %; Eosinophils # (A) 0.3 k/uL (0-0.7); Eosinophils % (A) 3 %; HGB 15.2 gm/dL (13.0-17.5); Lymphocytes # (A) 1.1 k/uL (1.0-4.8); Lymphocytes % (A) 12 %; MCH 29.8 pg (25.0-35.0); MCHC 32.4 g/dL (31.0-37.0); MCV 92.1 fL (80.0-100.0); Mean Platelet Volume 7.1; Monocytes # (A) 0.5 k/uL (0-1.0); Monocytes % (A) 6 %; Neutrophils # (A) 7.3 k/uL (1.3-7.7); Neutrophils % (A) 78 %; Platelet Count 181 k/uL (150-450); RDW 14.5 % (11.5-15.5); WBC 9.4 k/uL (3.8-10.6)
--- NOTE | 2018-05-07 11:54 | XR ---
EXAMINATION TYPE: XR KUB DATE OF EXAM: 05/07/2018 COMPARISON: 02/26/2018 HISTORY: Pain TECHNIQUE: One view abdominal series FINDINGS: The osseous structures are intact. The bowel gas pattern is nonspecific. Lung bases are clear. Post surgical change involving the vertebral column. Arthropathy of the hips. IMPRESSION: 1. Nonspecific abdomen. A few prominent small bowel loops are seen which could been the basis of an ileus or enteritis correlate with CT scan as clinically warranted.
[2018-05-07 12:02] LABS: Appearance,Urine Clear (Clear); Bilirubin,Urine Negative (Negative); Blood,Urine Negative (Negative); Color,Urine Yellow; Glucose,Urine (UA) Negative (Negative); Ketones,Urine Negative (Negative); Leukocyte Esterase,Urine Negative (Negative); Nitrite,Urine Negative (Negative); Protein,Urine Negative (Negative); Specific Gravity,Urine 1.021 (1.001-1.035); Urobilinogen,Urine <2.0 mg/dL (<2.0)
[2018-05-07 12:10] LABS: ALT 38 U/L (21-72); AST 26 U/L (17-59); Albumin 3.9 g/dL (3.5-5.0); Alkaline Phosphatase 96 U/L (38-126); Anion Gap 8 mmol/L; Blood Urea Nitrogen 17 mg/dL (9-20); Calcium 9.1 mg/dL (8.4-10.2); Carbon Dioxide 22 mmol/L (22-30); Chloride 107 mmol/L (98-107); Glucose 112 mg/dL (74-99); Lipase 66 U/L (23-300); Potassium 4.5 mmol/L (3.5-5.1); Sodium 137 mmol/L (137-145); Total Bilirubin 0.6 mg/dL (0.2-1.3); Total Protein 6.3 g/dL (6.3-8.2)
[2018-05-07 12:24] LABS: Prothrombin Time 11.1 sec (9.0-12.0)
[2018-05-07 13:00] VITALS: RESP 16
[2018-05-07 13:40] VITALS: BP 119/70; PULSE 64
== END 2018-05-07 13:39 | disposition home or self-care (01) ==
LOC: EC 10:54
DX: K56.7 Ileus, unspecified (principal); E11.9 Type 2 diabetes mellitus without complications; E78.5 Hyperlipidemia, unspecified; I10 Essential (primary) hypertension; M19.90 Unspecified osteoarthritis, unspecified site; G47.30 Sleep apnea, unspecified; Z99.89 Dependence on other enabling machines and devices; F17.200 Nicotine dependence, unspecified, uncomplicated; Z79.82 Long term (current) use of aspirin; Z79.84 Long term (current) use of oral hypoglycemic drugs; Z79.899 Other long term (current) drug therapy; Z79.891 Long term (current) use of opiate analgesic; Z90.49 Acquired absence of other specified parts of digestive tract
CPT/HCPCS: 36415; 74018; 80053; 81003; 83605; 83690; 85025; 85610; 99284

== ENCOUNTER 2020-11-22 20:57 | Observation (INO) | payer MEDICARE, OTHER ==
[2020-11-22 22:33] VITALS: RESP 18
[2020-11-23] MEDS ORDERED: MORPHINE SULFATE 4 MG/ML SYRINGE IV STA (01:15)
[2020-11-23 01:44] LABS: Basophils # (A) 0.1 k/uL (0-0.2); Basophils % (A) 1 %; Eosinophils # (A) 0.1 k/uL (0-0.7); Eosinophils % (A) 1 %; HCT 46.7 % (39.0-53.0); HGB 15.5 gm/dL (13.0-17.5); Lymphocytes # (A) 1.4 k/uL (1.0-4.8); Lymphocytes % (A) 14 %; MCH 32.5 pg (25.0-35.0); MCHC 33.2 g/dL (31.0-37.0); MCV 97.8 fL (80.0-100.0); Monocytes # (A) 0.6 k/uL (0-1.0); Monocytes % (A) 6 %; Neutrophils # (A) 7.5 k/uL (1.3-7.7); Neutrophils % (A) 76 %; Platelet Count 218 k/uL (150-450); RBC 4.77 m/uL (4.30-5.90); RDW 15.1 % (11.5-15.5); WBC 9.9 k/uL (3.8-10.6)
[2020-11-23 02:07] LABS: Appearance,Urine Clear (Clear); Bacteria,Urine Rare /hpf; Bilirubin,Urine Negative (Negative); Blood,Urine Negative (Negative); Color,Urine Yellow; Glucose,Urine (UA) Negative (Negative); Hyaline Casts,Urine 44 /lpf (0-2); Ketones,Urine Negative (Negative); Leukocyte Esterase,Urine Trace (Negative); Mucus,Urine Rare /hpf; Nitrite,Urine Negative (Negative); PH, Urine 5.5 (5.0-8.0); Protein,Urine Trace (Negative); RBC,Urine <1 /hpf (0-5); Specific Gravity,Urine 1.023 (1.001-1.035); Urobilinogen,Urine <2.0 mg/dL (<2.0); WBC,Urine 6 /hpf (0-5)
[2020-11-23 02:08] LABS: ALT 25 U/L (4-49); AST 32 U/L (17-59); African American GFR (CKD) >90 (>60 ml/min/1.73 sqM); Albumin 4.2 g/dL (3.5-5.0); Alkaline Phosphatase 104 U/L (38-126); Amylase 132 U/L (30-110); Anion Gap 9 mmol/L; Blood Urea Nitrogen 16 mg/dL (9-20); Calcium 9.5 mg/dL (8.4-10.2); Carbon Dioxide 26 mmol/L (22-30); Chloride 104 mmol/L (98-107); Glucose 93 mg/dL (74-99); Lipase 146 U/L (23-300); Non-African American GFR(CKD) >90 (>60 ml/min/1.73 sqM); Potassium 4.4 mmol/L (3.5-5.1); Sodium 139 mmol/L (137-145); Total Bilirubin 0.6 mg/dL (0.2-1.3); Total Protein 6.7 g/dL (6.3-8.2)
--- NOTE | 2020-11-23 02:22 | CT ---
EXAMINATION TYPE: CT abdomen pelvis wo con DATE OF EXAM: 11/23/2020 COMPARISON: None HISTORY: left flank pain CT DLP: 1714.4 mGycm Automated exposure control for dose reduction was used. Images obtained from the diaphragm to the floor the pelvis with no contrast. Lung bases are clear of consolidation. Heart size is normal. there is mild subsegmental atelectasis a t the lung bases. There is no pericardial effusion. Liver spleen stomach pancreas gallbladder appear intact. Bile ducts are nondilated. There is no adrenal mass. Abdominal aorta is atheromatous. There is 4 cm aneurysm of the lower abdomi nal aorta. There is no evidence of a renal mass. There is right-sided hydronephrosis. The right ureter is not di lated however. I see no evidence of a renal calculus. There is no retroperitoneal adenopathy. Bladder distends smoothly. There is no inguinal hernia. There is no free fluid in the pelvis. There are a fe w sigmoid diverticula. There is no diverticulitis. Appendix not seen. No sign of thickened appendix. There is posterior fusion surgery at L4-5. There is a mild first-degree L4-5 subluxation. There is no compression fracture. Bony pelvis is intact. The hip joints are intact. There is moderate atheroscle rotic vascular calcification. IMPRESSION: No evidence of renal stone. There is right side hydronephrosis but no hydroureter. Calyces are not si gnificantly dilated. I do not suspect obstruction. 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
--- NOTE | 2020-11-23 02:51 | CT ---
EXAMINATION TYPE: CT chest angio for PE DATE OF EXAM: 11/23/2020 COMPARISON: None HISTORY: elevated D-dimer. rule out PE. CT DLP: 553.7 mGycm Automated exposure control for dose reduction was used. CONTRAST: Performed with IV Contrast, patient injected with 75ml mL of Isovue 370. There are 3-D post processed images. There is some mild subsegmental atelectasis at the lung bases. Heart size is normal. There is no kamari cardial effusion. There is no pleural effusion. There is no mediastinal adenopathy. Thoracic aorta is intact. There is no aneurysm or dissection. There is no evidence of filling defect in the pulmonary arteries. The thoracic spine is intact. There is no compression fracture. Sternum is intact. IMPRESSION: No evidence of pulmonary embolism. Minimal subsegmental atelectasis in the posterior lung alvares. Thi s appears not significantly different than old CT scan of October 12, 2015
--- NOTE | 2020-11-23 06:01 | ED ---
Abdominal Pain HPI - General Chief Complaint: Abdominal Pain Stated Complaint: L shoulder pain,Flank pain Time Seen by Provider: 11/22/20 23:51 Source: patient Mode of arrival: ambulatory - History of Present Illness MD Complaint: flank pain Onset/Timin -: days(s) Location: L flank Radiation: LLQ Migration to: no migration Severity: moderate Quality: aching Consistency: constant Improves With: nothing Worsens With: nothing Associated Symptoms: nausea - Related Data Home Medications Medication Instructions Recorded Confirmed Atorvastatin [Lipitor] 20 mg PO DAILY 06/16/17 05/07/18 HYDROcodone/APAP 10-325MG [Chrisney 1 tab PO TID PRN 06/16/17 05/07/18 10-325] Losartan Potassium 50 mg PO DAILY 06/16/17 05/07/18 sitaGLIPtin PHOS/metFORMIN HCL 1 tab PO BID 06/16/17 05/07/18 [Janumet 50-1,000 mg Tablet] traMADol HCL [Ultram] 50 mg PO BID PRN 06/16/17 05/07/18 Albuterol Sulfate [Ventolin HFA] 2 puff INHALATION RT-QID 11/23/20 11/23/20 Calcium/Magnesium/Zinc 1 tab PO DAILY 11/23/20 11/23/20 [Imobjfa-Wvybjtepa-Wiwi Tablet] Cholecalciferol [Vitamin D3 (25 50 mcg PO DAILY 11/23/20 11/23/20 Mcg = 1000 Iu)] Cyanocobalamin [Vitamin B-12] 500 mcg PO DAILY 11/23/20 11/23/20 Fluticasone Propionate [Flovent 2 puff INHALATION RT-BID 11/23/20 11/23/20 Hfa 110 mcg] Folic Acid 1 mg PO DAILY 11/23/20 11/23/20 Montelukast [Singulair] 10 mg PO DAILY 11/23/20 11/23/20 Pregabalin [Lyrica] 150 mg PO BID 11/23/20 11/23/20 metHOTREXate sodium [Methotrexate] 12.5 mg PO WE 11/23/20 11/23/20 Allergies Allergy/AdvReac Type Severity Reaction Status Date / Time No Known Allergies Allergy Verified 11/23/20 08:04 Review of Systems ROS Statement: Those systems with pertinent positive or pertinent negative responses have been documented in the HPI. ROS Other: All systems not noted in ROS Statement are negative. Constitutional: Denies: fever, chills Respiratory: Denies: cough, dyspnea Cardiovascular: Denies: chest pain, palpitations, edema Gastrointestinal: Reports: nausea. Denies: abdominal pain, diarrhea, constipation Genitourinary: Denies: dysuria, frequency, hematuria, testicular pain Musculoskeletal: Denies: back pain, arthralgia Skin: Denies: rash Neurological: Denies: headache, weakness, numbness Psychiatric: Denies: depression Past Medical History Past Medical History: Diabetes Mellitus, Hyperlipidemia, Hypertension, Osteoarthritis (OA), Sleep Apnea/CPAP/BIPAP Additional Past Medical History / Comment(s): Hx gout, back pain- L4 and L5 area, uses CPAP. History of Any Multi-Drug Resistant Organisms: None Reported Past Surgical History: Appendectomy Additional Past Surgical History / Comment(s): Pain procedures, colonoscopy Past Anesthesia/Blood Transfusion Reactions: No Reported Reaction Past Psychological History: No Psychological Hx Reported Smoking Status: Current every day smoker Past Alcohol Use History: None Reported Past Drug Use History: Marijuana - Past Family History Father Family Medical History: Cancer General Exam General appearance: alert, in no apparent distress Head exam: Present: atraumatic, normocephalic Eye exam: Present: normal appearance. Absent: scleral icterus, conjunctival injection ENT exam: Present: normal oropharynx Neck exam: Present: normal inspection, full ROM Respiratory exam: Present: normal lung sounds bilaterally. Absent: respiratory distress, wheezes, rales, rhonchi, stridor Cardiovascular Exam: Present: regular rate, normal rhythm, normal heart sounds. Absent: systolic murmur, diastolic murmur, rubs, gallop GI/Abdominal exam: Present: soft. Absent: distended, tenderness, guarding, rebound, rigid, mass Extremities exam: Present: normal inspection, normal capillary refill. Absent: pedal edema, calf tenderness Back exam: Present: normal inspection, CVA tenderness (L). Absent: CVA tenderness (R) Neurological exam: Present: alert Skin exam: Present: warm, dry, intact, normal color. Absent: rash Course Vital Signs 11/22/20 11/23/20 11/23/20 22:28 03:43 06:04 Temperature 98.5 F 98.2 F 98.1 F Pulse Rate 65 62 61 Respiratory 18 18 18 Rate Blood Pressure 123/73 121/75 137/82 O2 Sat by Pulse 98 91 L 91 L Oximetry Procedures - [facility] Protocol (Time Out) Nurse: Sayda Davis Medical Decision Making - Lab Data Result diagrams: 11/23/20 01:11/23/20 01:21 Lab Results 11/23/20 11/23/20 11/23/20 Range/Units 01:21 01:21 01:21 WBC 9.9 (3.8-10.6) k/uL RBC 4.77 (4.30-5.90) m/uL Hgb 15.5 (13.0-17.5) gm/dL Hct 46.7 (39.0-53.0) % MCV 97.8 (80.0-100.0) fL MCH 32.5 (25.0-35.0) pg MCHC 33.2 (31.0-37.0) g/dL RDW 15.1 (11.5-15.5) % Plt Count 218 (150-450) k/uL MPV 7.0 Neutrophils % 76 % Lymphocytes % 14 % Monocytes % 6 % Eosinophils % 1 % Basophils % 1 % Neutrophils # 7.5 (1.3-7.7) k/uL Lymphocytes # 1.4 (1.0-4.8) k/uL Monocytes # 0.6 (0-1.0) k/uL Eosinophils # 0.1 (0-0.7) k/uL Basophils # 0.1 (0-0.2) k/uL D-Dimer 1.68 H (<0.60) mg/L FEU Sodium 139 (137-145) mmol/L Potassium 4.4 (3.5-5.1) mmol/L Chloride 104 (98-107) mmol/L Carbon Dioxide 26 (22-30) mmol/L Anion Gap 9 mmol/L BUN 16 (9-20) mg/dL Creatinine 0.71 (0.66-1.25) mg/dL Est GFR (CKD-EPI)AfAm >90 (>60 ml/min/1.73 sqM) Est GFR (CKD-EPI)NonAf >90 (>60 ml/min/1.73 sqM) Glucose 93 (74-99) mg/dL Plasma Lactic Acid Shaun (0.7-2.0) mmol/L Calcium 9.5 (8.4-10.2) mg/dL Total Bilirubin 0.6 (0.2-1.3) mg/dL AST 32 (17-59) U/L ALT 25 (4-49) U/L Alkaline Phosphatase 104 (38-126) U/L Troponin I (0.000-0.034) ng/mL Total Protein 6.7 (6.3-8.2) g/dL Albumin 4.2 (3.5-5.0) g/dL Amylase 132 H (30-110) U/L Lipase 146 (23-300) U/L Urine Color Urine Appearance (Clear) Urine pH (5.0-8.0) Ur Specific [place] (1.001-1.035) Urine Protein (Negative) Urine Glucose (UA) (Negative) Urine Ketones (Negative) Urine Blood (Negative) Urine Nitrite (Negative) Urine Bilirubin (Negative) Urine Urobilinogen (<2.0) mg/dL Ur Leukocyte Esterase (Negative) Urine RBC (0-5) /hpf Urine WBC (0-5) /hpf Urine Bacteria (None) /hpf Hyaline Casts (0-2) /lpf Urine Mucus (None) /hpf Coronavirus (PCR) (Not Detectd) 11/23/20 11/23/20 11/23/20 Range/Units 01:21 01:21 01:21 WBC (3.8-10.6) k/uL RBC (4.30-5.90) m/uL Hgb (13.0-17.5) gm/dL Hct (39.0-53.0) % MCV (80.0-100.0) fL MCH (25.0-35.0) pg MCHC (31.0-37.0) g/dL RDW (11.5-15.5) % Plt Count (150-450) k/uL MPV Neutrophils % % Lymphocytes % % Monocytes % % Eosinophils % % Basophils % % Neutrophils # (1.3-7.7) k/uL Lymphocytes # (1.0-4.8) k/uL Monocytes # (0-1.0) k/uL Eosinophils # (0-0.7) k/uL Basophils # (0-0.2) k/uL D-Dimer (<0.60) mg/L FEU Sodium (137-145) mmol/L Potassium (3.5-5.1) mmol/L Chloride (98-107) mmol/L Carbon Dioxide (22-30) mmol/L Anion Gap mmol/L BUN (9-20) mg/dL Creatinine (0.66-1.25) mg/dL Est GFR (CKD-EPI)AfAm (>60 ml/min/1.73 sqM) Est GFR (CKD-EPI)NonAf (>60 ml/min/1.73 sqM) Glucose (74-99) mg/dL Plasma Lactic Acid Shaun 1.3 (0.7-2.0) mmol/L Calcium (8.4-10.2) mg/dL Total Bilirubin (0.2-1.3) mg/dL AST (17-59) U/L ALT (4-49) U/L Alkaline Phosphatase (38-126) U/L Troponin I <0.012 (0.000-0.034) ng/mL Total Protein (6.3-8.2) g/dL Albumin (3.5-5.0) g/dL Amylase (30-110) U/L Lipase (23-300) U/L Urine Color Yellow Urine Appearance Clear (Clear) Urine pH 5.5 (5.0-8.0) Ur Specific [place] 1.023 (1.001-1.035) Urine Protein Trace H (Negative) Urine Glucose (UA) Negative (Negative) Urine Ketones Negative (Negative) Urine Blood Negative (Negative) Urine Nitrite Negative (Negative) Urine Bilirubin Negative (Negative) Urine Urobilinogen <2.0 (<2.0) mg/dL Ur Leukocyte Esterase Trace H (Negative) Urine RBC <1 (0-5) /hpf Urine WBC 6 H (0-5) /hpf Urine Bacteria Rare H (None) /hpf Hyaline Casts 44 H (0-2) /lpf Urine Mucus Rare H (None) /hpf Coronavirus (PCR) (Not Detectd) 11/23/20 11/23/20 Range/Units 06:03 06:08 WBC (3.8-10.6) k/uL RBC (4.30-5.90) m/uL Hgb (13.0-17.5) gm/dL Hct (39.0-53.0) % MCV (80.0-100.0) fL MCH (25.0-35.0) pg MCHC (31.0-37.0) g/dL RDW (11.5-15.5) % Plt Count (150-450) k/uL MPV Neutrophils % % Lymphocytes % % Monocytes % % Eosinophils % % Basophils % % Neutrophils # (1.3-7.7) k/uL Lymphocytes # (1.0-4.8) k/uL Monocytes # (0-1.0) k/uL Eosinophils # (0-0.7) k/uL Basophils # (0-0.2) k/uL D-Dimer (<0.60) mg/L FEU Sodium (137-145) mmol/L Potassium (3.5-5.1) mmol/L Chloride (98-107) mmol/L Carbon Dioxide (22-30) mmol/L Anion Gap mmol/L BUN (9-20) mg/dL Creatinine (0.66-1.25) mg/dL Est GFR (CKD-EPI)AfAm (>60 ml/min/1.73 sqM) Est GFR (CKD-EPI)NonAf (>60 ml/min/1.73 sqM) Glucose (74-99) mg/dL Plasma Lactic Acid Shaun (0.7-2.0) mmol/L Calcium (8.4-10.2) mg/dL Total Bilirubin (0.2-1.3) mg/dL AST (17-59) U/L ALT (4-49) U/L Alkaline Phosphatase (38-126) U/L Troponin I <0.012 (0.000-0.034) ng/mL Total Protein (6.3-8.2) g/dL Albumin (3.5-5.0) g/dL Amylase (30-110) U/L Lipase (23-300) U/L Urine Color Urine Appearance (Clear) Urine pH (5.0-8.0) Ur Specific [place] (1.001-1.035) Urine Protein (Negative) Urine Glucose (UA) (Negative) Urine Ketones (Negative) Urine Blood (Negative) Urine Nitrite (Negative) Urine Bilirubin (Negative) Urine Urobilinogen (<2.0) mg/dL Ur Leukocyte Esterase (Negative) Urine RBC (0-5) /hpf Urine WBC (0-5) /hpf Urine Bacteria (None) /hpf Hyaline Casts (0-2) /lpf Urine Mucus (None) /hpf Coronavirus (PCR) Not Detected (Not Detectd) Disposition Clinical Impression: Abdominal pain Disposition: ADMITTED IP TO THIS HOSP Condition: Fair Instructions (If sedation given, give patient instructions): Abdominal Pain (ED) Is patient prescribed a controlled substance at d/c from ED?: No Referrals: Ghazal Faustin MD [Primary Care Provider] - 1-2 days
[2020-11-23 06:06] VITALS: TEMP 98.1
[2020-11-23 09:46] VITALS: BP 112/84; PULSE 68
== END 2020-11-23 10:50 | disposition left against medical advice (07) ==
LOC: EC 20:57 → 6NMEDSUR 11-23 09:59
PROVIDERS: ADMIT Internal Medicine; ATTEND Internal Medicine
DX: R10.9 Unspecified abdominal pain (principal); I10 Essential (primary) hypertension; E11.9 Type 2 diabetes mellitus without complications; E78.5 Hyperlipidemia, unspecified; R11.0 Nausea; M25.512 Pain in left shoulder; G47.30 Sleep apnea, unspecified; M19.90 Unspecified osteoarthritis, unspecified site; M10.9 Gout, unspecified; M54.5 Low back pain; F17.200 Nicotine dependence, unspecified, uncomplicated; Z20.822 Contact with and (suspected) exposure to COVID-19; Z79.84 Long term (current) use of oral hypoglycemic drugs; Z79.51 Long term (current) use of inhaled steroids; Z79.899 Other long term (current) drug therapy; Z90.49 Acquired absence of other specified parts of digestive tract; Z98.890 Other specified postprocedural states; Z80.9 Family history of malignant neoplasm, unspecified; Z53.29 Procedure and treatment not carried out because of patient's decision for other reasons
CPT/HCPCS: 96374; 99285; 36415; 93005; 85379; 80053; 82150; 83605; 83690; 84484; 85025; 81001; 87635; 71275; 74176; G0378; J2270; Q9967

== ENCOUNTER → 2021-02-21 | Outpatient (CLI) | payer MEDICARE, OTHER | END | disposition home or self-care (01) | LOC: LABWHC1 12:49 | PROVIDERS: ATTEND Internal Medicine | DX: J02.9 Acute pharyngitis, unspecified (principal); R51.9 Headache, unspecified | CPT/HCPCS: U0003; C9803 ==

== ENCOUNTER → 2021-02-27 | Outpatient (CLI) | payer MEDICARE, OTHER ==
--- NOTE | 2021-02-27 14:06 | XR ---
EXAMINATION TYPE: XR scapula LT DATE OF EXAM: 02/27/2021 COMPARISON: NONE HISTORY: Pain TECHNIQUE: 2 views submitted FINDINGS: AC joint arthropathy. Coarsened interstitium left lung. No acute fracture. No dislocation. Osseous structures intact. IMPRESSION: 1. AC joint arthropathy. 2. Correlate for basilar and interstitial infiltrates.
--- NOTE | 2021-02-27 14:07 | XR ---
EXAMINATION TYPE: XR shoulder limited LT DATE OF EXAM: 02/27/2021 COMPARISON: NONE HISTORY: Pain TECHNIQUE: Two views are submitted. FINDINGS: The osseous structures are intact. There is no acute fracture or dislocation. AC joint arthropathy. Coarsened interstitium. IMPRESSION: 1. AC joint arthropathy. 2. Correlate for interstitial lung disease or infiltrates.
== END | disposition home or self-care (01) ==
LOC: RADXRYALE 13:01
PROVIDERS: ATTEND Internal Medicine
DX: M19.012 Primary osteoarthritis, left shoulder (principal)

== ENCOUNTER → 2021-12-30 | Outpatient (CLI) | payer MEDICARE, OTHER ==
--- NOTE | 2021-12-30 14:47 | US ---
EXAMINATION TYPE: US abdomen complete DATE OF EXAM: 12/30/2021 COMPARISON: CT CLINICAL HISTORY: R19.01 RUQ PAIN, ABD SWELLING. Patient states that he has a right palpable area that gets bigger and smaller. Area of palpable scanned superficially as well, no abnormality seen by ultrasound. TECHNIQUE: Multiple sonographic images of the abdomen are obtained. FINDINGS: EXAM MEASUREMENTS: Liver Length: 10.6 cm Gallbladder Wall: 0.3 cm CBD: 0.4 cm Spleen: 11.6 cm Right Kidney: 13.9 x 5.2 x 4.5 cm Left Kidney: 13.2 x 5.5 x 4.9 cm NETTING WEAVER NOTES: Morbidly obese patient with extensive overlying bowel gas, technically difficult limited study. Pancreas: Obscured by bowel gas Liver: wnl as seen Gallbladder: wnl Evidence for sonographic Melendez's sign: No CBD: wnl Spleen: wnl Right Kidney: mild hydronephrosis, measures large Left Kidney: measures large Upper IVC: wnl Abd Aorta: mostly obscured by overlying bowel gas, AAA seen measuring 4cm The liver is homogenous. The intrahepatic portion of the IVC and proximal abdominal aorta are within normal limits. There is no evidence of cholelithiasis. Common bile duct is unremarkable. The visu alized portions of the pancreas are homogenous. The spleen is unremarkable. IMPRESSION: Mild right-sided hydronephrosis.
== END | disposition home or self-care (01) ==
LOC: RADUSWWP 13:55
PROVIDERS: ATTEND Internal Medicine
DX: N13.30 Unspecified hydronephrosis (principal); R19.01 Right upper quadrant abdominal swelling, mass and lump
CPT/HCPCS: 76700

== ENCOUNTER → 2022-01-01 | Outpatient (CLI) | payer MEDICARE, OTHER ==
--- NOTE | 2022-01-01 12:22 | CT ---
EXAMINATION TYPE: CT abdomen w con CT DLP: 1500 mGycm, Automated exposure control for dose reduction was used. DATE OF EXAM: 01/01/2022 11:50 AM COMPARISON: CT abdomen pelvis 11/23/2020 ultrasound 12/30/2021 CLINICAL INDICATION:Male, 71 years old with history of R19.01 RIGHT UPPER QUADRANT ABDOMINAL SWELLING , MA; RUQ pain, swelling (marked with a BB) TECHNIQUE: Axial CT of the abdomen. Sagittal and coronal [facility] Contrast used:70 mL of Isovue 300 with IV Contrast, Oral contrast used: with Oral Contrast FINDINGS: LOWER CHEST: Unremarkable ABDOMEN LIVER: Unremarkable GALLBLADDER AND BILE DUCTS: Layering high density in the gallbladder suspected. PANCREAS: Unremarkable. SPLEEN: Unremarkable. ADRENAL GLANDS: Unremarkable. KIDNEYS AND URETERS: Similar mild pelvocaliectasis on the right. No evidence of left hydronephrosis. Left nonobstructing punctate 2 mm renal calculi are noted. STOMACH AND BOWEL: No evidence of bowel obstruction. Appendix is not definitively visualized. PERITONEUM: No evidence of pneumoperitoneum or free fluid. VASCULATURE: Infrarenal aortic fusiform dilation up to 4.6 cm, personally 4.2 cm on 11/23/2020. Scatt ered mural thrombus is seen within the arterial vasculature. MUSCULOSKELETAL: No acute osseous abnormalities postsurgical changes to the spine at L4 and L5 with d iscectomy. LYMPH NODES: No gross evidence for lymphadenopathy. SOFT TISSUE/ABDOMINAL WALL: Pain marker does not correlate with any acute abnormality identified with in the abdomen or within the subcutaneous tissues. IMPRESSION: 1. Palpable marker does not correlate with any acute finding within the skin or in the abdomen. 2. Infrarenal aortic aneurysm measuring up to 4.6 cm which is increased from prior 4.2 cm in 2020 Lepe rgical consultation recommended. 3. Similar mild right renal pelvocaliectasis back to 2020.
== END | disposition home or self-care (01) ==
LOC: RADCTMAIN 10:51
PROVIDERS: ATTEND Internal Medicine
DX: I71.43 Infrarenal abdominal aortic aneurysm, without rupture (principal); R19.01 Right upper quadrant abdominal swelling, mass and lump
CPT/HCPCS: 74160; Q9967 ×2

== ENCOUNTER → 2022-01-24 | Outpatient (CLI) | payer MEDICARE, OTHER ==
[2022-01-24 14:25] LABS: African American GFR (CKD) >90 (>60 ml/min/1.73 sqM); Blood Urea Nitrogen 12 mg/dL (9-20); Non-African American GFR(CKD) >90 (>60 ml/min/1.73 sqM)
--- NOTE | 2022-01-24 15:54 | CT ---
EXAMINATION: CT ABDOMEN AND PELVIS WITHOUT IV CONTRAST DATE OF EXAMINATION: 07/25/2021. COMPARISON: None available. INDICATION: Lower quadrant lump and suspected hydronephrosis. PROCEDURE: Axial CT of the abdomen and pelvis was performed with sagittal and coronal reformatted i mages without contrast enhancement. CT dose lowering techniques were used, to include: automated expo sure control, adjustment for patient size, and/or use of iterative reconstruction. The exam is limite d because some types of pathology may not be adequately demonstrated due to lack of contrast enhancem ent. FINDINGS: LOWER CHEST : The visualized lung bases are clear. There are no pleural or pericardial effusions. P artially visualized moderate to severe coronary artery calcifications. ABDOMEN: Liver and Biliary system: Normal. Adrenal glands: Normal. Kidneys and ureters: There is a some moderate right-sided hydronephrosis that ends at the ureteropel laurie junction which may represent a chronic UPJ obstruction and/or stricture. Consider urology consult . There is no left-sided hydronephrosis. There is a 2 mm nonobstructing stone in the lower pole of th e left kidney. There are no ureteral stones otherwise noted. Spleen: Normal. Pancreas: Normal. Gallbladder: Normal. Lymph nodes, Peritoneum and mesentery: There is no mesenteric or retroperitoneal lymphadenopathy. Gastrointestinal tract: There are no dilated loops of bowel or free intraperitoneal air. . The appe ndix is not clearly seen with no secondary changes of appendicitis otherwise identified. There is mil d sigmoid colonic diverticulosis without evidence of diverticulitis. Aorta/IVC: Significant vascular calcification throughout the abdominal aorta with aneurysmal dilati on of the infrarenal abdominal aorta measuring up to 4.9 cm in diameter. There is moderate intralumin al plaque also seen. No dissection.. IVC normal. Abdominal wall: Normal. PELVIS: Fluid: There is no free fluid in the pelvis. Lymph Nodes: There is no pelvic or inguinal lymphadenopathy.. Urinary bladder: Normal. BONES: The posterior spinal fusion between L4 and L5. No aggressive osseous lesions are identified.. ADDITIONAL SIGNIFICANT FINDINGS: None.. IMPRESSION: 1. Nonobstructing left renal stone. 2. Moderate right-sided hydronephrosis that appears to end at the ureteropelvic junction which may re late to a chronic UPJ obstruction and/or stricture. Urology consultation for further evaluation. 3. Diverticulosis without evidence of diverticulitis. 4. 4.9 cm infrarenal abdominal aortic aneurysm. 5. No additional suspicious renal, urinary tract or bladder lesions identified. 6. Severe coronary artery calcifications.
== END | disposition home or self-care (01) ==
LOC: RADCTMAIN 13:38
PROVIDERS: ATTEND Urology
DX: N13.2 Hydronephrosis with renal and ureteral calculous obstruction (principal); I71.43 Infrarenal abdominal aortic aneurysm, without rupture; I25.10 Atherosclerotic heart disease of native coronary artery without angina pectoris; K57.30 Diverticulosis of large intestine without perforation or abscess without bleeding
CPT/HCPCS: 82565; 84520; 74178; 36415; 74400; Q9967

== ENCOUNTER → 2022-05-16 | Outpatient (CLI) | payer MEDICARE, OTHER ==
[~2022-05-16] MED LIST changes: -BACITRACIN 50,000 UNIT, POLYMYXIN B 500,000 UNIT in SODIUM CHLORIDE 0.9% IRRIGATIO 1,00... IRRIGATION ONE; -DEXAMETHASONE SOD PHOSPHATE 10 MG/ML 1 ML VIAL IV ONE; +FUROSEMIDE 10 MG/ML 2 ML VIAL IV STA; -LIDOCAINE 1% 20 ML VIAL (10MG/ML) FOR IV START INTRADERMA PRN; -MIDAZOLAM 2 MG/2 ML VIAL IV PRN; -ONDANSETRON 4 MG/2 ML VIAL IVP ONE; -ceFAZolin IN SWFI 2 GM/20 ML SYRINGE IVP ONE; -fentaNYL (PF) 50 MCG/ML 2 ML AMP IV PRN
--- NOTE | 2022-05-16 18:05 | NM ---
EXAMINATION TYPE: NM lasix renogram DATE OF EXAM: 05/16/2022 COMPARISON: 01/24/2022 HISTORY: Hydronephrosis Following administration of 9.8 mCi Tc 99m MAG3 with 20mg Lasix. Immediate images post injection FINDINGS: Left: 48.9 %. Right: 51.1 %. Max renal flow left: 7.0 minutes. Max renal flow right: 7.5 minutes. Satisfactory accumulation of radiotracer within both renal collecting systems. After the administrati on of Lasix, there is prompt excretion from left collecting system and delayed excretion on the right . T 1/2 left: 13 minutes. T 1/2 right: N/A minutes. IMPRESSION: A delayed excretion on the right compatible with hydronephrosis.
== END | disposition home or self-care (01) ==
LOC: RADNMMAIN 12:58
PROVIDERS: ATTEND Urology
DX: N13.30 Unspecified hydronephrosis (principal)
CPT/HCPCS: 78708; A9562

== ENCOUNTER 2022-06-08 20:06 | Emergency (ER) | payer MEDICARE, OTHER ==
[2022-06-08] MEDS ORDERED: DIPH,PERTUS(ACELL)TETVAC-LF 0.5 ML VIAL IM ONE (21:15)
[2022-06-08] MEDS ORDERED: MUPIROCIN 2% OINT 22 GM TUBE TOPICAL ONE (21:30)
--- NOTE | 2022-06-08 21:31 | ED ---
General Adult HPI - General Chief complaint: Wound/Laceration Stated complaint: hand injury Time Seen by Provider: 06/08/22 21:02 Source: patient, RN notes reviewed Mode of arrival: ambulatory Limitations: no limitations - History of Present Illness Initial comments: 72-year-old male presents emergency Department with chief complaint left hand skin tear. Patient states that he was taking his dog to the public dog wash when his dog pulled him and his hand and across the stainless steel of the tub causing an skin tear. The skin tear is on the dorsal aspect of his left hand about 7 x 5 cm. Patient states that his last tetanus was 8-10 years ago. Denies any pain to his fingers or wrist. Denies numbness, tingling. - Related Data Home Medications Medication Instructions Recorded Confirmed Atorvastatin [Lipitor] 20 mg PO DAILY 06/16/17 11/23/20 HYDROcodone/APAP 10-325MG [[place] 1 tab PO TID PRN 06/16/17 11/23/20 10-325] Losartan Potassium 50 mg PO DAILY 06/16/17 11/23/20 sitaGLIPtin PHOS/metFORMIN HCL 1 tab PO BID 06/16/17 11/23/20 [Janumet 50-1,000 mg Tablet] traMADol HCL [Ultram] 50 mg PO BID 06/16/17 11/23/20 Albuterol Sulfate [Ventolin HFA] 2 puff INHALATION RT-QID 11/23/20 11/23/20 Calcium/Magnesium/Zinc 1 tab PO DAILY 11/23/20 11/23/20 [Nwgidkp-Juramnyeo-Ngcp Tablet] Cholecalciferol [Vitamin D3 (25 50 mcg PO DAILY 11/23/20 11/23/20 Mcg = 1000 Iu)] Cyanocobalamin [Vitamin B-12] 500 mcg PO DAILY 11/23/20 11/23/20 Fluticasone Propionate [Flovent 2 puff INHALATION RT-BID 11/23/20 11/23/20 Hfa 110 mcg] Folic Acid 1 mg PO DAILY 11/23/20 11/23/20 Montelukast [Singulair] 10 mg PO DAILY 11/23/20 11/23/20 Pregabalin [Lyrica] 150 mg PO BID 11/23/20 11/23/20 metHOTREXate sodium [Methotrexate] 12.5 mg PO WE 11/23/20 11/23/20 Allergies Allergy/AdvReac Type Severity Reaction Status Date / Time No Known Allergies Allergy Verified 11/23/20 08:04 Review of Systems ROS Statement: Those systems with pertinent positive or pertinent negative responses have been documented in the HPI. ROS Other: All systems not noted in ROS Statement are negative. Past Medical History Past Medical History: Diabetes Mellitus, Hyperlipidemia, Hypertension, Osteoarthritis (OA), Sleep Apnea/CPAP/BIPAP Additional Past Medical History / Comment(s): Hx gout, back pain- L4 and L5 area, uses CPAP. History of Any Multi-Drug Resistant Organisms: None Reported Past Surgical History: Appendectomy, Orthopedic Surgery Additional Past Surgical History / Comment(s): Pain procedures, colonoscopy, kidney stent 01/30, left shoulder sx 05/01 Past Anesthesia/Blood Transfusion Reactions: No Reported Reaction Past Psychological History: No Psychological Hx Reported Smoking Status: Current every day smoker Past Alcohol Use History: None Reported Past Drug Use History: Marijuana - Past Family History Father Family Medical History: Cancer General Exam Limitations: no limitations General appearance: alert, in no apparent distress Head exam: Present: atraumatic, normocephalic, normal inspection Respiratory exam: Present: normal lung sounds bilaterally. Absent: respiratory distress, wheezes, rales, rhonchi, stridor Cardiovascular Exam: Present: regular rate, normal rhythm, normal heart sounds. Absent: systolic murmur, diastolic murmur, rubs, gallop, clicks Extremities exam: Present: normal inspection, full ROM, normal capillary refill. Absent: tenderness, pedal edema, joint swelling, calf tenderness Neurological exam: Present: alert, oriented X3 Skin exam: Present: warm, dry, normal color, abrasion (Abrasion to left hand 7 x 5 cm). Absent: rash Course Vital Signs 06/08/22 06/08/22 20:53 21:59 Temperature 98.0 F 98.4 F Pulse Rate 60 80 Respiratory 18 16 Rate Blood Pressure 173/81 156/80 O2 Sat by Pulse 95 99 Oximetry Medical Decision Making - Medical Decision Making Was pt. sent in by a medical professional or institution (, PA, INTERNAL COMMUNICATIONS MANAGER, urgent care, hospital, or penitentiary...) When possible be specific @ -No Did you speak to anyone other than the patient for history (EMS, parent, family, police, friend...)? What history was obtained from this source @ -No Did you review nursing and triage notes (agree or disagree)? Why? @ -I reviewed and agree with nursing and triage notes Were old charts reviewed (outside hosp., previous admission, EMS record, old EKG, old radiological studies, urgent care reports/EKG's, penitentiary records)? Report findings @ -No old charts were reviewed Differential Diagnosis (chest pain, altered mental status, abdominal pain women, abdominal pain men, vaginal bleeding, weakness, fever, dyspnea, syncope, headache, dizziness, GI bleed, back pain, seizure, CVA, palpatations, mental health, musculoskeletal)? @ -Laceration, abrasion, ecchymosis, skin tear This is not meant to be in all inclusive list EKG interpreted by me (3pts min.). @ -None X-rays interpreted by me (1pt min.). @ -None done CT interpreted by me (1pt min.). @ -None done U/S interpreted by me (1pt. min.). @ -None done What testing was considered but not performed or refused? (CT, X-rays, U/S, labs)? Why? @ -None What meds were considered but not given or refused? Why? @ -None Did you discuss the management of the patient with other professionals (professionals i.e. , PA, INTERNAL COMMUNICATIONS MANAGER, lab, RT, psych nurse, forensic social worker, legal researcher, teacher, [place] police officer, welfare case worker)? Give summary @ -No Was smoking cessation discussed for >3mins.? @ -No Was critical care preformed (if so, how long)? @ -No Were there social determinants of health that impacted care today? How? (Homelessness, low income, unemployed, alcoholism, drug addiction, transportati on, low edu. Level, literacy, decrease access to med. care, prison, rehab)? @ -No Was there de-escalation of care discussed even if they declined (Discuss DNR or withdrawal of care, Hospice)? DNR status @ -No What co-morbidities impacted this encounter? (DM, HTN, Smoking, COPD, CAD, Cancer, CVA, ARF, Chemo, Hep., AIDS, mental health diagnosis, sleep apnea, morbid obesity)? @ -None Was patient admitted / discharged? Hospital course, mention meds given and route, prescriptions, significant lab abnormalities, going to OR and other pertinent info. @ -Discharge. Well-appearing 72-year-old male Patient presented to emergency department with chief complaint of left hand skin tear. He states that he was at the public dog wash when he scraped his hand on the dog tub. The top layer of the skin was torn off. The injury is superficial with no evidence of foreign body. Adacel was administered. The wound was thoroughly cleaned, mupirocin ointment was applied and the wound was dressed. Patient advised to keep wound clean and dry. Patient discharged in stable condition. Case discussed with my attending, Dr. Holliday Undiagnosed new problem with uncertain prognosis? @ -No Drug Therapy requiring intensive monitoring for toxicity (Heparin, Nitro, Insulin, Cardizem)? @ -No Were any procedures done? @ -No Diagnosis/symptom? @ -skin tear Acute, or Chronic, or Acute on Chronic? @ -Acute Uncomplicated (without systemic symptoms) or Complicated (systemic symptoms)? @ -uncomplicated Side effects of treatment? @ -No Exacerbation, Progression, or Severe Exacerbation? @ -No Poses a threat to life or bodily function? How? (Chest pain, USA, SD, pneumonia, PE, COPD, DKA, ARF, appy, cholecystitis, CVA, Diverticulitis, Homicidal, Suicidal, threat to staff... and all critical care pts) @ -No Disposition Clinical Impression: Skin tear Disposition: HOME SELF-CARE Condition: Stable Additional Instructions: Please return to the Emergency Department if symptoms worsen or any other con cerns. Is patient prescribed a controlled substance at d/c from ED?: No Referrals: Ghazal Faustin MD [Primary Care Provider] - 1-2 days
[2022-06-08 22:00] VITALS: BP 156/80; PULSE 80; RESP 16; TEMP 98.4
== END 2022-06-08 21:59 | disposition home or self-care (01) ==
LOC: EC 20:06
DX: S61.412A Laceration without foreign body of left hand, initial encounter (principal); E11.9 Type 2 diabetes mellitus without complications; I10 Essential (primary) hypertension; E78.5 Hyperlipidemia, unspecified; M19.90 Unspecified osteoarthritis, unspecified site; F17.200 Nicotine dependence, unspecified, uncomplicated; F12.90 Cannabis use, unspecified, uncomplicated; Z23 Encounter for immunization; Z79.84 Long term (current) use of oral hypoglycemic drugs; Z79.899 Other long term (current) drug therapy; W26.8XXA Contact with other sharp object(s), not elsewhere classified, initial encounter
CPT/HCPCS: 90471; 90715; 99282

== ENCOUNTER → 2022-07-09 | Outpatient (CLI) | payer MEDICARE, OTHER ==
--- NOTE | 2022-07-09 15:18 | XR ---
EXAMINATION TYPE: XR chest 2V DATE OF EXAM: 07/09/2022 COMPARISON: 02/26/2018 TECHNIQUE: PA and lateral views submitted. HISTORY: Cough FINDINGS: The lungs are clear and there is no pneumothorax, pleural effusion, or focal pneumonia. Heart size normal and no overt failure. Osseous structures demonstrate hypertrophic and degenerative changes of the spine. Atherosclerotic change of the aorta. Hyperinflation of the lungs. Stable left hemidiaphrag m elevation. IMPRESSION: 1. No acute process.
== END | disposition home or self-care (01) ==
LOC: RADXRYALE 15:02
PROVIDERS: ATTEND Internal Medicine
DX: J44.9 Chronic obstructive pulmonary disease, unspecified (principal)
CPT/HCPCS: 71046

== ENCOUNTER → 2022-10-06 | Outpatient (CLI) | payer MEDICARE, OTHER ==
[~2022-10-06] MED LIST changes: +FUROSEMIDE 10 MG/ML 2 ML VIAL IV ONE; -FUROSEMIDE 10 MG/ML 2 ML VIAL IV STA
--- NOTE | 2022-10-06 14:13 | NM ---
EXAMINATION TYPE: NM lasix renogram DATE OF EXAM: 10/06/2022 COMPARISON: 05/16/2022 CLINICAL INDICATION: Male, 72 years old with history of N13.30 HYDRONEPHROSIS; Following administration of 10.8 mCi Tc 99m MAG3 with 20mg Lasix. Immediate images post injection FINDINGS: Left: 48.7 %. Right: 51.3 %. Max renal flow left: 4 minutes. Max renal flow right: 9 minutes. Satisfactory accumulation of radiotracer within both renal collecting systems. After the administrati on of Lasix, there is prompt excretion from both collecting systems. T 1/2 left: 12.4 minutes. T 1/2 right: NA minutes. IMPRESSION: Persistent delayed excretion involving the right kidney not significantly changed from prior exam. Wo uld be compatible with history of hydronephrosis
== END | disposition home or self-care (01) ==
LOC: RADNMMAIN 12:51
PROVIDERS: ATTEND Urology
DX: N13.30 Unspecified hydronephrosis (principal)
CPT/HCPCS: 78708; A9562

== ENCOUNTER → 2023-07-29 | Outpatient (CLI) | payer MEDICARE, OTHER ==
[2023-07-29 19:03] LABS: ALT 25 U/L (10-49); AST 30 U/L (14-35); Chol/HDL Ratio 3.14 Ratio; LDL Cholesterol,Calculated 63.3 mg/dL (0.0-131.0)
== END | disposition home or self-care (01) ==
LOC: LABWHC1 13:38
PROVIDERS: ATTEND Internal Medicine Cardiovascular Disease
DX: E78.2 Mixed hyperlipidemia (principal)
CPT/HCPCS: 36415; 80061; 84450; 84460

== ENCOUNTER → 2023-08-17 | Outpatient (CLI) | payer MEDICARE, OTHER ==
[2023-08-17 20:58] LABS: Basophils # (A) 0.09 X 10*3/uL (0.00-0.10); Eosinophils % (A) 1.1 %; HCT 45.6 % (39.6-50.0); HGB 15.2 g/dL (13.0-17.0); Lymphocytes # (A) 1.67 X 10*3/uL (0.90-5.00); Lymphocytes % (A) 19.2 %; MCH 31.6 pg (27.0-32.0); MCHC 33.3 g/dL (32.0-37.0); MCV 94.8 FL (80.0-97.0); Mean Platelet Volume 9.5 FL (9.5-12.2); Monocytes # (A) 0.74 X 10*3/uL (0.20-1.00); Monocytes % (A) 8.5 %; NRBC Per 100 WBC 0 X 10*3/uL (0.00-0.01); Neutrophils # (A) 6.05 X 10*3/uL (1.80-7.70); Neutrophils % (A) 69.6 %; Platelet Count 222 X 10*3/uL (140-440); RBC 4.81 X 10*6/uL (4.40-5.60); RDW 14.6 % (11.5-14.5)
[2023-08-17 22:23] LABS: Alternaria alternata IgE <0.10 kU/L; Aspergillus fumagatus IgE <0.10 kU/L; Birch IgE <0.10 kU/L; Cat Epith & Dander IgE <0.10 kU/L; Cladosporian herbarum IgE <0.10 kU/L; Cockroach IgE <0.10 kU/L; Dermato. farinae IgE <0.10 kU/L; Dog Dander IgE <0.10 kU/L; Elm IgE <0.10 kU/L; Maple (Box Elder) IgE <0.10 kU/L; Oak IgE <0.10 kU/L; Ragweed,Common IgE <0.10 kU/L; Red Top (Bentgrass) IgE <0.10 kU/L
== END | disposition home or self-care (01) ==
LOC: LABWHC1 15:16
PROVIDERS: ATTEND Internal Medicine Pulmonary Disease
DX: J45.50 Severe persistent asthma, uncomplicated (principal); J44.9 Chronic obstructive pulmonary disease, unspecified; E13.9 Other specified diabetes mellitus without complications; G62.9 Polyneuropathy, unspecified
CPT/HCPCS: 36415; 82785; 85025; 86001; 86003; 86606; 86609

== ENCOUNTER → 2023-08-24 | Outpatient (CLI) | payer MEDICARE, OTHER ==
--- NOTE | 2023-08-24 22:15 | CT ---
EXAMINATION TYPE: CT chest wo con DATE OF EXAM: 08/24/2023 COMPARISON: 11/23/[address] abdomen 01/24/2022 HISTORY: 73-year-old male J45.50 Severe persistent asthma, and congestion. TECHNIQUE: Contiguous axial scanning of the chest without IV contrast. Coronal/sagittal reconstructio ns performed. CT DLP: 662.0mGycm. Automatic exposure control utilized for a dose reduction. FINDINGS: The heart is normal size without pericardial effusion. Extensive three-vessel coronary artery calcifi cations are present in the remarkable for coronary artery disease. Aneurysm aortic root at 4.4 cm possibly increased from 3.9 cm, previously. Mild aneurysm ascending aorta 4.0 cm. Moderate atherosclerotic arch calcifications with conventional arch vessel branching anatomy. Scattered nonenlarged mediastinal lymph nodes. Mildly enlarged 1.2 cm lower right paratracheal lymph nodes suspected to have been present previously. Mildly enlarged caliber main right and left pulmonary arteries measuring up to 2.9 cm suggesting unde rlying pulmonary arterial hypertension. Scattered interstitial groundglass change in the visualized lower lungs. Scattered mild bronchial wal l thickening. Jznr-[id number]-nenlbozs emphysematous changes in the upper lungs. No pleural effusion. Visualized upper abdomen with partial visualization of the fusiform infrarenal abdominal aortic aneur ysm measuring at least 4.4 cm. Appropriate follow-up recommended. Persistent moderate right-sided hyd ronephrosis, unchanged from 01/24/2022. Bones: Mild degenerative disc disease throughout the thoracic spine. IMPRESSION: 1. COPD with mild to moderate edema. Groundglass interstitial changes in the lower lungs slightly inc reased. Consider interstitial scarring as a sequela of prior infection versus interstitial pneumoniti s such as NSIP or DIP. 2. Aneurysmal aortic root estimated at 4.4 cm, possibly increased from 3.9 cm in 2020. 3. Extensive three-vessel coronary artery calcifications. Pulmonary arterial hypertension. 4. Partially visualized infrarenal AAA. It measures at least 4.4 cm. Recommend dedicated imaging for surveillance follow-up (consider aortic ultrasound) and to assess for any further enlargement from .
== END | disposition home or self-care (01) ==
LOC: RADCTMAIN 16:54
PROVIDERS: ATTEND Internal Medicine Pulmonary Disease
DX: J45.50 Severe persistent asthma, uncomplicated (principal); G47.33 Obstructive sleep apnea (adult) (pediatric); E13.9 Other specified diabetes mellitus without complications; G62.9 Polyneuropathy, unspecified; J44.89 Other specified chronic obstructive pulmonary disease; I25.10 Atherosclerotic heart disease of native coronary artery without angina pectoris; I27.21 Secondary pulmonary arterial hypertension; I71.43 Infrarenal abdominal aortic aneurysm, without rupture; Z72.0 Tobacco use
CPT/HCPCS: 71250

== ENCOUNTER → 2024-04-29 | Outpatient (CLI) | payer MEDICARE, OTHER ==
--- NOTE | 2024-04-29 14:48 | NM ---
EXAMINATION TYPE: NM lasix renogram Intraoperative/procedural fluoroscopic services were provided. CLINICAL INDICATION:Male, 74 years old with history of N13.30 UNSPECIFIED HYDRONEPHROSIS; , [facility] COMPARISON: Nuclear medicine Lasix renogram 04/13/2023, 10/06/2022, 05/16/2022, CT urogram 01/24/2022 TECHNIQUE: Following administration of 10.1 mCi Tc 99m MAG3 with 20mg Lasix. Immediate images post in jection FINDINGS: Left: 49.7 %. Right: 50.3 %. TMax left: 8.0 minutes. TMax right: 8.0 minutes. Satisfactory accumulation of radiotracer within both renal collecting systems. There is symmetric martha w to both kidneys. After the administration of Lasix, there is prompt excretion from the left collect ing system. Obstructive right renal excretion curve morphology. T 1/2 left: 15.3 minutes. T 1/2 right: NA minutes. IMPRESSION: Dilated right renal collecting system with obstructive appearance. [facility], , 04/29/2024 2:46 PM
== END | disposition home or self-care (01) ==
LOC: RADNMMAIN 13:08
PROVIDERS: ATTEND Urology
DX: N13.30 Unspecified hydronephrosis (principal)
CPT/HCPCS: 78708; A9562

== ENCOUNTER → 2024-05-04 | Outpatient (CLI) | payer MEDICARE, OTHER ==
--- NOTE | 2024-05-05 07:02 | XR ---
EXAMINATION TYPE: XR cervical spine comp DATE OF EXAM: 05/04/2024 3:58 PM INDICATION: Patient age:Male; 74 years old; Reason for study: M542 CERVICALGIA; [facility], pain COMPARISON: MR C-spine/L spine 11/07/2015 TECHNIQUE: The cervical spine was imaged in 4 projections. Frontal, lateral, odontoid and bilateral o blique. FINDINGS: No acute fracture. Mild retrolisthesis of C3 on C4 and C4 on C5. Grade 1 anterolisthesis of C7 on T1. There are osteophytes noted throughout the cervical spine on the anterior and lateral aspects of the vertebral bodies. Multilevel disc space narrowing with endplate sclerosis of the cervical spine most pronounced at C3-C6. Pedicles are intact. Soft tissues are within normal limits. The odontoid appea rs intact. IMPRESSION: 1. No fracture or dislocation. 2. Moderate multilevel degenerative disc disease of the cervical spine. 3. Mild retrolisthesis of C3 on C4 and C4 on C5. Grade 1 anterolisthesis of C7 on T1. [facility], , 05/05/2024 7:00 AM
== END | disposition home or self-care (01) ==
LOC: RADXRYALE 15:38
PROVIDERS: ATTEND Internal Medicine
DX: M50.30 Other cervical disc degeneration, unspecified cervical region (principal); M43.12 Spondylolisthesis, cervical region
CPT/HCPCS: 72050

== ENCOUNTER 2024-09-08 16:49 | Emergency (ER) | payer MEDICARE, OTHER ==
[2024-09-08 17:02] VITALS: TEMP 98
[2024-09-08] MEDS: MORPHINE SULFATE 4 MG/ML SYRINGE IVP STA (18:00)
[2024-09-08 18:31] LABS: Basophils # (A) 0.07 10*3/uL (0.00-0.10); Basophils % (A) 0.8 %; Eosinophils # (A) 0.11 10*3/uL (0.04-0.35); Eosinophils % (A) 1.2 %; HCT 46.4 % (39.6-50.0); HGB 15.4 g/dL (13.0-17.0); Lymphocytes # (A) 1.20 10*3/uL (0.90-5.00); Lymphocytes % (A) 13.1 %; MCH 32.2 pg (27.0-32.0); MCHC 33.2 g/dL (32.0-37.0); MCV 97.1 fL (80.0-97.0); Monocytes # (A) 0.80 10*3/uL (0.20-1.00); Monocytes % (A) 8.7 %; Neutrophils # (A) 6.92 10*3/uL (1.80-7.70); Neutrophils % (A) 75.2 %; Platelet Count 210 10*3/uL (140-440); RBC 4.78 10*6/uL (4.40-5.60); RDW 15.3 % (11.5-14.5); WBC 9.19 10*3/uL (4.50-10.00)
[2024-09-08 18:33] LABS: Bilirubin,Urine Negative (Negative); Blood,Urine Negative (Negative); Color,Urine Colorless; Glucose,Urine (UA) 4+ (Negative); Ketones,Urine Negative (Negative); Leukocyte Esterase,Urine Negative (Negative); Nitrite,Urine Negative (Negative); PH, Urine 5.5 (5.0-8.0); Protein,Urine Negative (Negative); Specific Gravity,Urine 1.013 (1.001-1.035); Urobilinogen,Urine <2.0 mg/dL (<2.0)
[2024-09-08 18:43] LABS: ALT 18 U/L (4-49); AST 24 U/L (17-59); African American GFR (CKD) >90 (>60 ml/min/1.73 sqM); Albumin 4.3 g/dL (3.5-5.0); Alkaline Phosphatase 108 U/L (38-126); Amylase 181 U/L (30-110); Anion Gap 11 mmol/L; Blood Urea Nitrogen 19 mg/dL (9-20); Calcium 9.3 mg/dL (8.4-10.2); Carbon Dioxide 27 mmol/L (22-30); Chloride 103 mmol/L (98-107); Glucose 101 mg/dL (74-99); Lipase 251 U/L (23-300); Non-African American GFR(CKD) 90 (>60 ml/min/1.73 sqM); Potassium 4.6 mmol/L (3.5-5.1); Sodium 141 mmol/L (137-145); Total Protein 6.5 g/dL (6.3-8.2)
--- NOTE | 2024-09-08 20:28 | CT ---
EXAMINATION TYPE: CT abdomen pelvis w con DATE OF EXAM: 09/08/2024 7:16 PM COMPARISON: Nuclear medicine Lasix renogram 04/29/2024. CT urogram 01/24/2022 CLINICAL INDICATION: Male, 74 years old with history of abdominal pain; abd pain TECHNIQUE: Axial CT abdomen pelvis w con;Sagittal and coronal reformats were created on a separate w orkstation. Contrast used:100ml mL of Isovue 300 with IV Contrast, (none if empty) Oral contrast used: without Oral Contrast (none if empty) CT DLP: 2459.8 mGycm, Automated exposure control for dose reduction was used. FINDINGS: LOWER CHEST: Bibasilar atelectasis. Coronary artery atherosclerosis with possible stents in place. ABDOMEN LIVER: Unremarkable GALLBLADDER AND BILE DUCTS: Unremarkable. PANCREAS: Unremarkable. SPLEEN: The spleen is enlarged measuring approximately 14.6 cm in craniocaudal dimension. ADRENAL GLANDS: Unremarkable. KIDNEYS AND URETERS: Redemonstrated and similar appearing moderate right hydronephrosis and pelvic di latation with abrupt cut off at the ureteropelvic junction. Punctate nonobstructive left renal calcul us is seen. PELVIS BLADDER: No evidence for wall thickening or mass given limitations of exam. REPRODUCTIVE: Unremarkable. ABDOMEN & PELVIS STOMACH AND BOWEL: Stomach is grossly unremarkable. Small bowel is of normal caliber. No evidence of bowel obstruction. PERITONEUM/RETROPERITONEUM: No evidence of pneumoperitoneum or free fluid. VASCULATURE: Abdominal aortic aneurysm at the level of the kidneys is seen measuring up to 4.8 x 4.6 cm on today's study retrospectively compared and measured on the CT urogram in reference the aorta me asured approximately 4.3 x 4.0 cm. Aorta demonstrates mixed calcified and noncalcified atheroscleroti c disease with mural thrombosis involving the fusiform aneurysmal portion. MUSCULOSKELETAL: Surgical hardware is noted in the lower lumbar spine. Multilevel degenerative change s are appreciated within the spine and bony pelvis with no acute osseous or obvious. LYMPH NODES: No gross evidence for lymphadenopathy. SOFT TISSUE/ABDOMINAL WALL: Tiny infraumbilical fat filled hernia. IMPRESSION: 1. No acute intra-abdominal/pelvic process. 2. Nonspecific splenomegaly. 3. Redemonstrated moderate right hydronephrosis extending to the right urinary pelvis where the dilat ation ends similar to the urogram study in reference. Findings may relate to a chronic UPJ obstructio n and/or stricture. 4. Punctate nonobstructive left renal calculus. 4. Fusiform abdominal aortic aneurysm is seen measuring up to 4.8 x 4.6 cm on today's study which is notable increase when compared to the radiograph study in reference. Recommend vascular surgery consu ltation for further evaluation. [facility], , 09/08/2024 8:26 PM
--- NOTE | 2024-09-08 21:22 | ED ---
Abdominal Pain HPI - General Chief Complaint: Abdominal Pain Stated Complaint: R sided flank/back pain Time Seen by Provider: 09/08/24 17:28 Source: patient Mode of arrival: ambulatory Limitations: no limitations - History of Present Illness Initial Comments: 74-year-old male presenting with chief complaint of abdominal pain. Patient reports that for the past 4 days he has felt like there has been a "lump" on the right upper portion of his abdomen. Seems to be worse when he coughs or sneezes. No change with eating. States that he has been having regular bowel movements with no change in bowel habits. No nausea or vomiting. No chest pain or difficulty breathing. No urinary symptoms. No fever or chills. No dizziness or weakness. - Related Data Home Medications Medication Instructions Recorded Confirmed Atorvastatin [Lipitor] 20 mg PO DAILY 06/16/17 11/23/20 HYDROcodone/APAP 10-325MG [[place] 1 tab PO TID PRN 06/16/17 11/23/20 10-325] Losartan Potassium 50 mg PO DAILY 06/16/17 11/23/20 sitaGLIPtin PHOS/metFORMIN HCL 1 tab PO BID 06/16/17 11/23/20 [Janumet 50-1,000 mg Tablet] traMADol HCL [Ultram] 50 mg PO BID 06/16/17 11/23/20 Albuterol Sulfate [Ventolin HFA] 2 puff INHALATION RT-QID 11/23/20 11/23/20 Calcium/Magnesium/Zinc 1 tab PO DAILY 11/23/20 11/23/20 [Bbdfjnp-Lzlmwpbgo-Vekt Tablet] Cholecalciferol [Vitamin D3 (25 50 mcg PO DAILY 11/23/20 11/23/20 Mcg = 1000 Iu)] Cyanocobalamin [Vitamin B-12] 500 mcg PO DAILY 11/23/20 11/23/20 Fluticasone Propionate [Flovent 2 puff INHALATION RT-BID 11/23/20 11/23/20 Hfa 110 mcg] Folic Acid 1 mg PO DAILY 11/23/20 11/23/20 Montelukast [Singulair] 10 mg PO DAILY 11/23/20 11/23/20 Pregabalin [Lyrica] 150 mg PO BID 11/23/20 11/23/20 metHOTREXate sodium [Methotrexate] 12.5 mg PO WE 11/23/20 11/23/20 Allergies Allergy/AdvReac Type Severity Reaction Status Date / Time No Known Allergies Allergy Verified 09/08/24 17:02 Review of Systems ROS Statement: Those systems with pertinent positive or pertinent negative responses have been documented in the HPI. ROS Other: All systems not noted in ROS Statement are negative. Past Medical History Past Medical History: Diabetes Mellitus, Hyperlipidemia, Hypertension, Osteoarthritis (OA), Sleep Apnea/CPAP/BIPAP Additional Past Medical History / Comment(s): Hx gout, back pain- L4 and L5 area, uses CPAP. History of Any Multi-Drug Resistant Organisms: None Reported Past Surgical History: Appendectomy, Orthopedic Surgery Additional Past Surgical History / Comment(s): Pain procedures, colonoscopy, kidney stent 01/30, left shoulder sx 05/01 Past Anesthesia/Blood Transfusion Reactions: No Reported Reaction Past Psychological History: No Psychological Hx Reported Smoking Status: Current every day smoker Past Alcohol Use History: Occasional Past Drug Use History: Marijuana - Past Family History Father Family Medical History: Cancer General Exam Limitations: no limitations General appearance: alert, in no apparent distress Head exam: Present: atraumatic, normocephalic, normal inspection Eye exam: Present: normal appearance, EOMI. Absent: periorbital swelling Neck exam: Present: normal inspection. Absent: meningismus Respiratory exam: Present: normal lung sounds bilaterally. Absent: respiratory distress, wheezes, rales, rhonchi, stridor Cardiovascular Exam: Present: regular rate, normal rhythm, normal heart sounds. Absent: systolic murmur, diastolic murmur, rubs, gallop, clicks GI/Abdominal exam: Present: soft, distended, tenderness. Absent: guarding, rebound, rigid Neurological exam: Present: alert, oriented X3 Psychiatric exam: Present: normal affect, normal mood Skin exam: Present: warm, dry, normal color Course Vital Signs 09/08/24 09/08/24 09/08/24 16:59 17:02 18:02 Temperature 98.0 F Pulse Rate 59 L 67 98 Respiratory 18 20 20 Rate Blood Pressure 150/91 157/119 149/79 O2 Sat by Pulse 96 98 98 Oximetry 09/08/24 20:29 Temperature Pulse Rate 63 Respiratory 16 Rate Blood Pressure 142/87 O2 Sat by Pulse 97 Oximetry Medical Decision Making - Medical Decision Making Was pt. sent in by a medical professional or institution (Dr., PA, LIFE ADVISOR, urgent care, hospital, or [facility]...) When possible be specific @ -No Did you speak to anyone other than the patient for history (EMS, parent, family, police, friend...)? What history was obtained from this source @ -No Did you review nursing and triage notes (agree or disagree)? Why? @ -I reviewed and agree with nursing and triage notes Were old charts reviewed (outside hosp., previous admission, EMS record, old EKG, old radiological studies, urgent care reports/EKG's, [facility] records)? Report findings @ -No old charts were reviewed Differential Diagnosis (chest pain, altered mental status, abdominal pain women, abdominal pain men, vaginal bleeding, weakness, fever, dyspnea, syncope, headache, dizziness, GI bleed, back pain, seizure, CVA, palpatations, mental health, musculoskeletal)? @ -MDM Differential Abdominal Pain Men: Appendicitis, cholecystitis, diverticulosis, ischemic bowel, pancreatitis, hepatitis, UTI, gastroenteritis, AAA, incarcerated hernia, bowel obstruction, constipation, inflammatory bowel, hepatitis, peptic ulcer disease, splenic infarction, perforated viscus, testicular torsion... This is not meant to be an all-inclusive list EKG interpreted by me (3pts min.). @ -As above X-rays interpreted by me (1pt min.). @ -None done CT interpreted by me (1pt min.). @ -CT shows no acute intra-abdominal/pelvic process. Nonspecific splenomegaly. Redemonstrated moderate right hydronephrosis extending to the right urinary pelvis where the dilatation ends similar to the urogram study in reference. Findings may be related to a chronic UPJ obstruction and/or stricture. Punctate nonobstructive left renal calculus. Fusiform abdominal aortic aneurysm is seen measuring up to 4.8 x 4.6 cm on today's study U/S interpreted by me (1pt. min.). @ -None done What testing was considered but not performed or refused? (CT, X-rays, U/S, labs)? Why? @ -None What meds were considered but not given or refused? Why? @ -None Did you discuss the management of the patient with other professionals (professionals i.e. CHRISTIAN Pfeiffer, LIFE ADVISOR, lab, RT, psych nurse, social media coordinator, oiler helper, teacher, forest fire control officer, caser shoe parts)? Give summary @ -No Was smoking cessation discussed for >3mins.? @ -No Was critical care preformed (if so, how long)? @ -No Were there social determinants of health that impacted care today? How? (Homelessness, low income, unemployed, alcoholism, drug addiction, transportation, low edu. Level, literacy, decrease access to med. care, care home, rehab)? @ -No Was there de-escalation of care discussed even if they declined (Discuss DNR or withdrawal of care, Hospice)? DNR status @ -No What co-morbidities impacted this encounter? (DM, HTN, Smoking, COPD, CAD, Canc er, CVA, ARF, Chemo, Hep., AIDS, mental health diagnosis, sleep apnea, morbid obesity)? @ -None Was patient admitted / discharged? Hospital course, mention meds given and route, prescriptions, significant lab abnormalities, going to OR and other pertinent info. @ -74-year-old male presenting with chief complaint of abdominal pain. History and physical examination are conducted. There is no obvious hernia or mass seen on exam. Lab work shows no leukocytosis or anemia. Mildly elevated amylas e of 181. Urine shows no evidence of infection or bleeding. CT shows no acute process. There is hydronephrosis which has been seen on previous studies and is being followed by his urologist Dr. Grullon. Patient does have an abdominal aortic aneurysm that has been seen dating back to at least 2021. Patient states he was not made aware of this previously, I educated the patient on abdominal aortic aneurysm and informed him that he needs to follow-up with vascular surgery, provided with referral. Discussed possibility of potential hernia which may not be seen when the patient is lying flat and the patient needs to follow-up with his PCP regarding this. Follow-up with PCP. Report back to ER with any new or worsening symptoms. Discussed return parameters and answered all questions. Patient conveyed verbal understanding and agreed to the plan. I discussed this case in detail with my attending Dr. Carlisle Undiagnosed new problem with uncertain prognosis? @ -No Drug Therapy requiring intensive monitoring for toxicity (Heparin, Nitro, Insulin, Cardizem)? @ -No Were any procedures done? @ -No Diagnosis/symptom? @ -Abdominal pain Acute, or Chronic, or Acute on Chronic? @ -Acute Uncomplicated (without systemic symptoms) or Complicated (systemic symptoms)? @ -Uncomplicated Side effects of treatment? @ -No Exacerbation, Progression, or Severe Exacerbation? @ -No Poses a threat to life or bodily function? How? (Chest pain, [place], [place], pneumonia, PE, COPD, DKA, ARF, appy, cholecystitis, CVA, Diverticulitis, Homicidal, Suicidal, threat to staff... and all critical care pts) @ -Seemingly unlikely at this time Diagnosis/symptom? @Abdominal aortic aneurysm Acute, or Chronic, or Acute on Chronic? @Chronic Uncomplicated (without systemic symptoms) or Complicated (systemic symptoms)? @Uncomplicated Side effects of treatment? @None Exacerbation, Progression, or Severe Exacerbation] @No Poses a threat to life or bodily function? @Potential if not properly followed and treated by vascular surgery, patient will need follow-up and this was emphasized to him - Lab Data Result diagrams: 09/08/24 18:07 09/08/24 18:07 Lab Results 09/08/24 09/08/24 09/08/24 Range/Units 18:07 18:07 18:07 WBC 9.19 (4.50-10.00) 10*3/uL RBC 4.78 (4.40-5.60) 10*6/uL Hgb 15.4 (13.0-17.0) g/dL Hct 46.4 (39.6-50.0) % MCV 97.1 H (80.0-97.0) fL MCH 32.2 H (27.0-32.0) pg MCHC 33.2 (32.0-37.0) g/dL Plt Count 210 (140-440) 10*3/uL MPV 9.0 L (9.5-12.2) fL Immature Gran % (Auto) 1.0 % Neutrophils % 75.2 % Lymphocytes % 13.1 % Monocytes % 8.7 % Eosinophils % 1.2 % Basophils % 0.8 % Immature Gran # 0.09 H (0.00-0.04) 10*3/uL Neutrophils # 6.92 (1.80-7.70) 10*3/uL Lymphocytes # 1.20 (0.90-5.00) 10*3/uL Monocytes # 0.80 (0.20-1.00) 10*3/uL Eosinophils # 0.11 (0.04-0.35) 10*3/uL Basophils # 0.07 (0.00-0.10) 10*3/uL Sodium 141 (137-145) mmol/L Potassium 4.6 (3.5-5.1) mmol/L Chloride 103 (98-107) mmol/L Carbon Dioxide 27 (22-30) mmol/L Anion Gap 11 mmol/L BUN 19 (9-20) mg/dL Creatinine 0.80 (0.66-1.25) mg/dL Est GFR (CKD-EPI)AfAm >90 (>60 ml/min/1.73 sqM) Est GFR (CKD-EPI)NonAf 90 (>60 ml/min/1.73 sqM) Glucose 101 H (74-99) mg/dL Plasma Lactic Acid Shaun (0.7-2.0) mmol/L Calcium 9.3 (8.4-10.2) mg/dL Total Bilirubin 0.5 (0.2-1.3) mg/dL AST 24 (17-59) U/L ALT 18 (4-49) U/L Alkaline Phosphatase 108 (38-126) U/L Total Protein 6.5 (6.3-8.2) g/dL Albumin 4.3 (3.5-5.0) g/dL Amylase 181 H (30-110) U/L Lipase 251 (23-300) U/L Urine Color Colorless Urine Appearance Clear (Clear) Urine pH 5.5 (5.0-8.0) Ur Specific [place] 1.013 (1.001-1.035) Urine Protein Negative (Negative) Urine Glucose (UA) 4+ H (Negative) Urine Ketones Negative (Negative) Urine Blood Negative (Negative) Urine Nitrite Negative (Negative) Urine Bilirubin Negative (Negative) Urine Urobilinogen <2.0 (<2.0) mg/dL Ur Leukocyte Esterase Negative (Negative) 09/08/24 Range/Units 18:07 WBC (4.50-10.00) 10*3/uL RBC (4.40-5.60) 10*6/uL Hgb (13.0-17.0) g/dL Hct (39.6-50.0) % MCV (80.0-97.0) fL MCH (27.0-32.0) pg MCHC (32.0-37.0) g/dL Plt Count (140-440) 10*3/uL MPV (9.5-12.2) fL Immature Gran % (Auto) % Neutrophils % % Lymphocytes % % Monocytes % % Eosinophils % % Basophils % % Immature Gran # (0.00-0.04) 10*3/uL Neutrophils # (1.80-7.70) 10*3/uL Lymphocytes # (0.90-5.00) 10*3/uL Monocytes # (0.20-1.00) 10*3/uL Eosinophils # (0.04-0.35) 10*3/uL Basophils # (0.00-0.10) 10*3/uL Sodium (137-145) mmol/L Potassium (3.5-5.1) mmol/L Chloride (98-107) mmol/L Carbon Dioxide (22-30) mmol/L Anion Gap mmol/L BUN (9-20) mg/dL Creatinine (0.66-1.25) mg/dL Est GFR (CKD-EPI)AfAm (>60 ml/min/1.73 sqM) Est GFR (CKD-EPI)NonAf (>60 ml/min/1.73 sqM) Glucose (74-99) mg/dL Plasma Lactic Acid Shaun 0.9 (0.7-2.0) mmol/L Calcium (8.4-10.2) mg/dL Total Bilirubin (0.2-1.3) mg/dL AST (17-59) U/L ALT (4-49) U/L Alkaline Phosphatase (38-126) U/L Total Protein (6.3-8.2) g/dL Albumin (3.5-5.0) g/dL Amylase (30-110) U/L Lipase (23-300) U/L Urine Color Urine Appearance (Clear) Urine pH (5.0-8.0) Ur Specific [place] (1.001-1.035) Urine Protein (Negative) Urine Glucose (UA) (Negative) Urine Ketones (Negative) Urine Blood (Negative) Urine Nitrite (Negative) Urine Bilirubin (Negative) Urine Urobilinogen (<2.0) mg/dL Ur Leukocyte Esterase (Negative) Disposition Clinical Impression: Abdominal pain, Abdominal aortic aneurysm Disposition: HOME SELF-CARE Condition: Fair Instructions (If sedation given, give patient instructions): Nonruptured Abdominal Aortic Aneurysm (DC), Abdominal Pain (ED) Additional Instructions: Follow-up with PCP, vascular surgery, intelligence consultant. Report back to ER with any new or worsening symptoms. Is patient prescribed a controlled substance at d/c from ED?: No Referrals: Ghazal Faustin MD [Primary Care Provider] - 1-2 days Rafael Win DO [STAFF PHYSICIAN] - 1-2 days Jim Grullon MD [STAFF PHYSICIAN] - 1-2 days Time of Disposition: 21:23
[2024-09-08 22:29] VITALS: BP 143/70; PULSE 70; RESP 18
== END 2024-09-08 22:29 | disposition home or self-care (01) ==
LOC: EC 16:49
DX: I71.40 Abdominal aortic aneurysm, without rupture, unspecified (principal); R10.11 Right upper quadrant pain; F17.200 Nicotine dependence, unspecified, uncomplicated
CPT/HCPCS: 36415; 80053; 82150; 83605; 83690; 85025; 81003; 74177; 99284; 96374; J2270; Q9967